=== PATIENT | female | born 1970 | race Caucasian/White ===

== ENCOUNTER 2018-02-14 13:44 | Emergency (ER) | payer MEDICAID, SELFPAY ==
[2018-02-14 13:46] VITALS: BP 152/73; PULSE 84; RESP 16; TEMP 36.7; O2SAT 94; BMI 48.9
--- NOTE | 2018-02-14 14:29 | ED.DCSUM_ITS ---
- ER Visit Summary Date of Service: 02/14/18 Chief Complaint: Dental pain History of Present Illness: The patient is a 47 F with left maxillary molar dental pain for several days. Patient believes the tooth is loose. Pain is severe. No other associated symptoms. Physical Examination: Afebrile and vital signs unremarkable. Left maxillary molar tender to palpation. No fracture or abscess noted. No swelling or trismus. No tongue elevation. No lymphadenopathy or meningeal findings. Cranial nerves grossly intact. Skin appears normal. Test Results: None indicated Emergency Department Course and Treatment: Patient will be treated with penicillin and Motrin. She does have an allergy to naproxen, but has tolerated Motrin before. She received her first dose here. Referred to dental for follow-up. Treatment Plan: As above Disposition: Discharged Impression: 1. Dental pain This note was generated with [employer] dictation software. It may contain incorrect words, spelling, and punctuation that were not noted in review of the chart prior to signing ED Disposition - Plan for ED Patient: Chief Complaint: Dental Referrals: Care Physician,No Primary [Primary Care Provider] -
--- NOTE | 2018-02-14 14:29 | ED.DEP ---
ED Disposition - Plan for ED Patient: Chief Complaint: Dental Instructions: ED Tooth Pain Prescriptions: Ibuprofen [Motrin] 800 mg PO TID PRN PRN #20 tab PRN Reason: Pain Penicillin Vk [Pen-Vee K 250MG] 500 mg PO 4X/DAY #40 tab
[2018-02-14] MEDS: Penicillin Vk 250 MG Tablet 500 MG PO (14:57)
[2018-02-14] MEDS: Ibuprofen 600 MG Tablet PO (14:57)
[2018-02-14 14:58] VITALS: RESP 16
== END 2018-02-14 15:00 | disposition home or self-care (01) ==
LOC: ED 15:08
PROVIDERS: Emergency Provider Emergency Medicine
DX: K08.89 Other specified disorders of teeth and supporting structures (principal); Z79.899 Other long term (current) drug therapy
CPT/HCPCS: 99283

== ENCOUNTER 2018-05-21 10:32 | Emergency (ER) | payer MEDICAID, SELFPAY ==
[2018-05-21 10:35] VITALS: PULSE 77; RESP 17; TEMP 36.4; O2SAT 97; BMI 47.0
[2018-05-21 10:43] VITALS: BP 202/87; PULSE 71; RESP 14; O2SAT 97
--- NOTE | 2018-05-21 11:07 | EKG12_ITS ---
Test Reason : CP Blood Pressure : / mmHG Vent. Rate : 080 BPM Atrial Rate : 080 BPM P-R Int : 138 ms QRS Dur : 092 ms QT Int : 388 ms P-R-T Axes : 016 001 037 degrees QTc Int : 447 ms Normal sinus rhythm Normal ECG Confirmed by JOSEY ALFARO MD ([id number]), multimedia editor JESSEE MANCINI ([id number]) on 05/25/2018 2:01:09 PM Referred By: EVIE Confirmed By:JOSEY ALFARO MD
[2018-05-21 11:33] VITALS: BP 161/76; PULSE 72; RESP 18; O2SAT 99
[2018-05-21 12:10] LABS: Absolute Lymphocyte Count 1.46 X10^3/ul (0.83-4.51); Absolute Neutrophil Count 4.9 X10^3/uL (2.0-7.7); Basophil# 0.01 X10^3/uL; Basophil% 0.1 % (0-1); Eosinophil# 0.09 X10^3/uL; Eosinophils% 1.3 % (0-5); Hematocrit 48.9 % (37-47); Hemoglobin 15.8 g/dl (12.0-15.0); Lymphocyte # 1.46 X10^3/ul (4.0); Lymphocyte % 21.1 % (19-41); Mean Corp Hgb Conc 32.3 g/gl (32-36); Mean Corpuscular Hgb 30.4 pg (27.0-32.0); Mean Platelet Vol. 11.6 fl (6.2-12.0); Monocyte# 0.43 X10^3/uL; Monocyte% 6.2 % (0-10); POSITIVE COUNT NO; POSITIVE DIFFERENTIAL NO; POSITIVE MORPHOLOGY NO; Platelet Count 140 K/mm3 (150-450); RBC Distribution Width CV 13.7 % (11.6-14.6); RBC Distribution Width SD 47.1 fl (35.1-43.9); White Blood Count 6.9 K/mm3 (4.4-11.0)
--- NOTE | 2018-05-21 12:56 | ED.DCSUM_ITS ---
- ER Visit Summary Date of Service: 05/21/18 Chief Complaint: Pain History of Present Illness: The patient is a 47 F who says her heart is bothering her. Symptoms started yesterday evening. Brought on by stress. She has pain in her left chest and paresthesias in her left arm. She also reports shortness of breath and nausea. Denies any history of heart disease. Does not take aspirin. Never had a stress test or heart cath. She is a smoker. Denies any history of PE or aortic disease. Physical Examination: Pressure 202/87. Vital signs otherwise unremarkable. Afebrile. Heart regular rate and rhythm. Lungs clear. Skin, calves, pulses unremarkable. Test Results: EKG showed sinus rhythm at a rate of 80. Hemoglobin 15.8. Chemistry panel, troponin, test, CTA pending. Emergency Department Course and Treatment: Patient presents with hypertension, chest pain, and left arm paresthesias. I was concerned for ACS, dissection. Less concern for PE or infectious process. I did order labs, EKG, CTA. Patient has an allergy to aspirin. I was notified by nursing that the patient was going to leave. She said she did not want to wait for labs and did not want to wait for subsequent CTA. Patient was advised to return at any time if she has new or worsening issues or she has a change of mind. Treatment Plan: As above Disposition: Left AGAINST MEDICAL ADVICE Impression: 1. Chest pain 2. Hypertension This note was generated with [employer] dictation software. It may contain incorrect words, spelling, and punctuation that were not noted in review of the chart prior to signing ED Disposition - Plan for ED Patient: Referrals: Care Physician,No Primary [Primary Care Provider] -
--- NOTE | 2018-05-21 12:56 | ED.DEP ---
ED Disposition - Plan for ED Patient: Instructions: ED Chest Pain Atypical Unkn Cause Referrals: Lupe Mooney [NON-STAFF] -
[2018-05-21 13:05] LABS: Pregnancy, Serum, hCG Quali. NEGATIVE Negative (0-9 Nonpreg)
--- NOTE | 2018-05-21 13:33 | ED.RN ---
Addendum entered by Elizabeth Olivas 05/21/18 13:34: PT LEFT AT 1230 Original Note: PT DEMANDS TO LEAVE AMA. RISKS OF LEAVING AMA DISCUSSED WITH PT AND FAMILY, BOTH VOICE UNDERSTANDING OF RISK UP TO AND INCLUDING . PT STATES SHE WILL CALL 911 OR RETURN WITH ANY WORSENING S/S. AMA PAPERS SIGNED.
[2018-05-21 13:44] LABS: Anion Gap 5 (5-15); BUN 9 mg/dL (7-18); BUN/Creat Ratio 12.4 RATIO (10-20); Calcium,Total 8.4 mg/dL (8.5-10.1); Chloride 102 mmol/L (98-107); Creatinine, Serum 0.73 mg/dL (0.55-1.02); EST Glomerular Filtration Rate 92 mL/min (>60); Est Glom Filt Rate - Afr Amer 111 mL/min (>60); Estimated Creatinine Clearance 94.64 ml/min; Glucose 93 mg/dL (74-106); Potassium 3.8 mmol/L (3.5-5.1); Sodium Level 137 mmol/L (136-145)
== END 2018-05-21 12:30 | disposition left against medical advice (07) ==
LOC: ED 11:10
PROVIDERS: Emergency Provider Emergency Medicine
DX: R07.9 Chest pain, unspecified (principal); I10 Essential (primary) hypertension; F17.200 Nicotine dependence, unspecified, uncomplicated
CPT/HCPCS: 80048; 84484; 84703; 85025; 93005; 99283; A4216

== ENCOUNTER 2019-05-30 12:50 | Emergency (ER) | payer MEDICAID, SELFPAY ==
[2019-05-30] VITALS (7 sets, daily range): BP systolic 159–191; BP diastolic 84–96; PULSE 68–84; RESP 14–18; TEMP 36.7–36.8; O2SAT 89–95; BMI 47.0
--- NOTE | 2019-05-30 13:12 | EKG12_ITS ---
Test Reason : EXTREMETY Blood Pressure : / mmHG Vent. Rate : 075 BPM Atrial Rate : 075 BPM P-R Int : 138 ms QRS Dur : 080 ms QT Int : 378 ms P-R-T Axes : 016 -02 015 degrees QTc Int : 422 ms Normal sinus rhythm Normal ECG Confirmed by JOSEY ALFARO MD ([id number]), editor trade journal JESSEE MANCINI ([id number]) on 05/31/2019 3:19:32 PM Referred By: NAVJOT/HANNAH Confirmed By:JOSEY ALFARO MD
--- NOTE | 2019-05-30 13:12 | RAD_ITS ---
STUDY: X-RAY CHEST REASON FOR EXAM: Female, 48 years old. cough TECHNIQUE: PA and lateral views of the chest. COMPARISON: None. FINDINGS: Asymmetric parenchymal opacity involves the left lower lobe. There is no demonstrated pleural abnormality. Normal size heart. Normal mediastinum and faye. Normal visualized pulmonary arteries. Normal visualized aortic arch and descending thoracic aorta. Normal visualized thoracic spine. Normal visualized ribs, clavicles, and shoulders. There is no demonstrated abnormality of the visualized soft tissue structures of the upper abdomen. RAD/Chest PA and Lateral IMPRESSION: Developing left lower lobe airspace disease could represent pneumonia. Electronically Signed: Palmer Mathis MD (Brooks) at 14:08 EDT , Service support ,
--- NOTE | 2019-05-30 13:26 | ED.VISSUMM ---
- ER Visit Summary Date of Service: 05/30/19 Chief Complaint: Left foot swelling History of Present Illness: The patient is a 48 F with no primary care physician. She reports that her left foot began swelling 3 days ago. She states that she has an aching, dull pain that is 6 out of 10 when she stands and she is pain-free at rest. She had a similar episode last year that she did not seek medical treatment for. She denies any personal history of DVT. She does have a family history of DVT. No recent travel. Patient denies any fever or chills. She reports that she has had chest pain intermittently for years. Last episode was this morning while she was at rest. Lasted a few minutes. She describes as a dull, aching pain just inferior to her left breast. Is 3 out of 10 at worst and she is pain-free currently. Nothing made this worse including exertion or deep breaths. Patient reports that she has a chronic cough that has been worse over the course the past month. It is chronically productive of white sputum. She states that this is unchanged in color or amount. However, she does feel mildly short of breath. She smokes a pack per day. Physical Examination: Vitals: Stable. Afebrile. General: Well-nourished and well-developed. Head: Normocephalic atraumatic. Neck: Supple, no lymphadenopathy. No JVD. Nontender. Cardiovascular: Regular rate and rhythm. No murmurs. Respiratory: No respiratory distress. Clear to auscultation bilaterally. Abdominal: Soft, nontender, nondistended, normal bowel sounds. No guarding, rebound, or peritoneal signs. Back: Nontender. Extremities: 2+ pitting edema right lower extremity, 3+ pitting edema left lower extremity. There is minimal erythema on the top of her left foot and anterior leg. There is no warmth or induration. She is a 2+ dorsalis pedis pulse bilaterally. Skin: Normal color, no rash. Neurologic: Alert and oriented ?3. Cranial nerves II through XII are intact. Normal strength and sensation. Psych: Normal affect. Test Results: EKG sinus at 75 no acute changes. Troponin is negative. BT [employer] is 59. test is negative. D-dimer is elevated. LFTs marked for down to 4.4. Chem-7 shows CO2 of 33 and calcium of 8.3. CBC shows platelets 144, segmented for 74, lymphocytes 15. Chest x-ray is read as the possibility of a developing left lower lobe infiltrate. CTA of the chest was obtained which shows no PE or infiltrate. Emergency Department Course and Treatment: During her stay in the emerge department patient's pulse ox decreased to 89% on room air while she was in bed. She was given an albuterol Atrovent aerosol. She was given a dose of Solu-Medrol IV. She was ambulated about the emergency department. While she is ambulating her pulse ox is 92%. Patient feels that her baseline would like to go home. Treatment Plan: Patient will be discharged with prednisone. She already has an albuterol MDI. She is given a dose of Xarelto here to get her through till tomorrow and she understands that she needs to come back and get a lower extremity Doppler to rule out a DVT. She is instructed to follow-up Dr. Keith Leyva to establish a primary care physician. Return to the emergency department for any worsening symptoms. Disposition: To home in improved and stable condition. Impression: 1. Left leg swelling. 2. COPD. This note was generated with [employer] dictation software. It may contain incorrect words, spelling, and punctuation that were not noted in review of the chart prior to signing ED Disposition - Plan for ED Patient: Disposition: Home or Assisted Living Instructions: ED Peripheral Edema, Unilateral Prescriptions: Prednisone [Deltasone] 60 mg PO DAILY #15 tab Prescription Printed Referrals: Keith Solis MD [STAFF PHYSICIAN] - 3-5 Days Additional Instructions: Return tomorrow for the ultrasound to make sure you don't have a blood clot.
[2019-05-30 13:46] LABS: Absolute Lymphocyte Count 1.28 X10^3/uL (0.83-4.51); Absolute Neutrophil Count 6.3 X10^3/uL (2.0-7.7); Basophil# 0.02 X10^3/uL; Basophil% 0.2 % (0-1); Eosinophil# 0.14 X10^3/uL; Eosinophils% 1.6 % (0-5); Hematocrit 47.2 % (37-47); Lymphocyte # 1.28 X10^3/ul (4.0); Mean Corp Hgb Conc 31.8 g/dL (32-36); Mean Corpuscular Hgb 30.2 pg (27.0-32.0); Mean Corpuscular Volume 95.2 fL (81-99); Mean Platelet Vol. 11.1 fl (6.2-12.0); Monocyte# 0.76 X10^3/uL; Monocyte% 8.9 % (0-10); NRBC Flagged by Analyzer 0 % (0-5); Neutrophil # 6.31 X10^3/uL (2.7-7.7); Neutrophil % 73.7 % (47-70); Platelet Count 144 K/mm3 (150-450); RBC Distribution Width CV 13.9 % (11.6-14.6); RBC Distribution Width SD 48.6 fl (35.1-43.9); Red Blood Count 4.96 M/mm3 (4.2-5.4); White Blood Count 8.6 K/mm3 (4.4-11.0)
[2019-05-30 13:59] LABS: Internal QC Validated? YES +Cl - CLEAR BKGD; Pregnancy, Serum, hCG Quali. NEGATIVE Negative
[2019-05-30 14:01] LABS: D-Dimer Quantitative (DVT/PE) 0.59 FEU/ug/m (0.27-0.49)
[2019-05-30 14:09] LABS: ALB/GLOB Ratio 0.8 RATIO (0.9-2.4); AST(SGOT) 17 U/L (15-37); Alanine Aminotransfer ALT/SGPT 22 U/L (13-56); Albumin, Serum 3.3 g/dL (3.2-5.0); Alkaline Phosphatase 83 U/L (45-117); Anion Gap 1 (5-15); BUN 9 mg/dL (7-18); BUN/Creat Ratio 14.1 RATIO (10-20); Calcium,Total 8.3 mg/dL (8.5-10.1); Chloride 107 mmol/L (98-107); Creatinine, Serum 0.64 mg/dL (0.55-1.02); EST Glomerular Filtration Rate 107 mL/min (>60); Est Glom Filt Rate - Afr Amer 129 mL/min (>60); Estimated Creatinine Clearance 106.81 ml/min; Globulin 4.4 g/dL (2.2-4.2); Glucose 90 mg/dL (74-106); Potassium 3.7 mmol/L (3.5-5.1); Protein, Total 7.7 g/dL (6.4-8.2); Sodium Level 141 mmol/L (136-145)
--- NOTE | 2019-05-30 14:09 | CT_ITS ---
STUDY: CTA CHEST REASON FOR EXAM: Female, 48 years old. LT FOOT SWELLING RADIATION DOSAGE (If Supplied By Facility): CTDIvol = ( 18.60 ) mGy, DLP = ( 543.42 ) mGycm TECHNIQUE: The examination was performed with the intravenous administration of 100 CC ISOVUE 370. Post-processing of the angiographic images was performed, with multiplanar reformation and 3D reconstruction. Individualized dose optimization techniques were used for this CT. COMPARISON: None. FINDINGS: There is a 1 cm low-density nodule left thyroid gland. Normal enhancement of the main pulmonary artery and right and left pulmonary arteries. There is limited enhancement of the bilateral peripheral pulmonary arteries. There is no demonstrated pulmonary embolism. Normal thoracic aorta and visualized great vessels. There is no demonstrated aortic dissection. Normal heart and pericardium. Normal mediastinum. Normal hilar regions. Normal visualized trachea and bronchi. The lungs are well expanded. Normal pulmonary parenchyma. Normal pleura. Normal chest wall structures. Normal osseous structures. There is a small, circumscribed, smooth, low attenuation left adrenal mass, consistent with an adrenal adenoma. Indeterminate adrenal lesion which does not meet imaging criteria for a lipid rich adenoma. However, in the absence of known primary malignancy or symptoms of functional adrenal mass, this likely represents a benign lesion such as a lipid poor adenoma. CT/CTA Chest W/WO Contrast IMPRESSION: No central or obvious segmental pulmonary embolus. Electronically Signed: Palmer Mathis MD (Brooks) at 14:54 EDT , Service support ,
[2019-05-30 14:20] LABS: BNP,B-Type NATRIURETIC PEPTIDE 59.2 pg/mL (0-100)
[2019-05-30] MEDS: Ipratropium/Albuterol Sulfate 3 ML AMPUL.NEB INHALATION (15:12)
[2019-05-30] MEDS: MethylPREDNISolone 125 MG/2 ML Vial IV (15:16)
[2019-05-30] MEDS: Rivaroxaban 20 MG Tablet PO (17:21)
== END 2019-05-30 17:32 | disposition home or self-care (01) ==
LOC: ED 13:15
PROVIDERS: Emergency Provider Emergency Medicine
DX: R60.0 Localized edema (principal); J44.9 Chronic obstructive pulmonary disease, unspecified; Z72.0 Tobacco use
CPT/HCPCS: 71046; 71275; 80053; 83880; 84484; 84703; 85025; 85379; 93005; 94640; 96374; 99285; Q9967; A4216

== ENCOUNTER → 2019-05-31 15:04 | Outpatient (CLI) | payer MEDICAID, SELFPAY ==
[2019-05-30 12:51] VITALS: BMI 47.0
--- NOTE | 2019-05-31 15:08 | VDLE_ITS ---
Reason For Study: Swelling RIGHT LEFT GSV is normal. GSV is normal. CFV is compressible, spontaneous, phasic, CFV is compressible, spontaneous, phasic, competent and demonstrates normal competent, and demonstrates normal augmentation. augmentation. FV is compressible, spontaneous, phasic, FV is compressible, spontaneous, phasic, competent and demonstrates normal competent and demonstrates normal augmentation. augmentation. POP V is compressible, spontaneous, phasic, POP V is compressible, spontaneous, phasic, competent and demonstrates normal competent and demonstrates normal augmentation. augmentation. T/P Trunk is compressible. T/P Trunk is compressible. PTV is compressible. PTV is compressible. RT PerV is compressible. LT PerV is compressible. Procedure Exam performed in department. A preliminary report was called and/or faxed to ED. Pt seen in ED 05/30/2019, pt has no PCP. Interpretation Summary Deep veins of the lower extremities are bilaterally patent and compressible segmentally. There is no evidence of deep vein thrombosis on either side. Valvular competence appears intact within the proximal deep venous systems bilaterally. The great saphenous veins appear bilaterally patent and compressible segmentally. Ordering Physician: José Miguel Garcia Performed By: Svetlana Duvall RVT
== END ==
PROVIDERS: Referring Provider Emergency Medicine; Visit Provider Emergency Medicine
DX: R60.0 Localized edema (principal)
CPT/HCPCS: 93970

== ENCOUNTER 2019-06-29 01:46 | Emergency (ER) | payer MEDICAID, SELFPAY ==
[2019-05-30 12:51] VITALS: BMI 47.0
[2019-06-29] VITALS (11 sets, daily range): BP systolic 154–200; BP diastolic 88–129; PULSE 75–171; RESP 15–26; TEMP 36.9; O2SAT 93–98; BMI 52.7
--- NOTE | 2019-06-29 01:53 | EKG12_ITS ---
Test Reason : PALPATIONS Blood Pressure : / mmHG Vent. Rate : 170 BPM Atrial Rate : 144 BPM P-R Int : 144 ms QRS Dur : 084 ms QT Int : 300 ms P-R-T Axes : 000 -21 020 degrees QTc Int : 504 ms Atrial fibrillation /RVR, Atrial fibrillation with RVR, occasional PVCs Nonspecific ST abnormality Abnormal ECG Confirmed by VIDYA HEREDIA, SAMANTHA ([id number]), mapping editor KAREN CHAKRABORTY ([id number]) on 06/29/2019 1:45:27 PM Referred By: MR Confirmed By:SAMANTHA DASILVA MD
--- NOTE | 2019-06-29 01:53 | RAD_ITS ---
STUDY: X-RAY CHEST REASON FOR EXAM: Female, 48 years old. PALPITATIONS TECHNIQUE: Single AP portable view of the chest. COMPARISON: 05/30/2019. FINDINGS: The lungs are mildly underexpanded. There is no demonstrated pulmonary infiltrate. There is no demonstrated pleural abnormality. Normal size heart. Normal mediastinum and faye. Normal visualized pulmonary arteries. Normal visualized aortic arch and descending thoracic aorta. Normal visualized thoracic spine. Normal visualized ribs, clavicles, and shoulders. There is no demonstrated abnormality of the visualized soft tissue structures of the upper abdomen. RAD/Chest 1 View (Portable) IMPRESSION: No evidence for acute cardiopulmonary pathology. Electronically Signed: Caden Whatley MD at 3:07 EDT , Service support ,
[2019-06-29] MEDS: Aspirin 81 MG TAB.CHEW 324 MG PO (01:59)
--- NOTE | 2019-06-29 02:05 | ED.DCSUM_ITS ---
History of Present Illness Chief Complaint: Palpitations Informant: Patient Narrative: Patient presenting for evaluation secondary to palpitations. Patient reports that she was feeling fine all day, she ate some pizza at about 1030 and then at 11:00 she had a sudden onset of an abnormal feeling in her throat, chest, and arms. It was associated with some sweating and shortness of breath and a feeling of palpitations. Patient reports that she is having exertional dyspnea now. She states that it feels like her heart is fluttering out of her chest. She is never had any prior similar episodes in the past. She denies any cardiac history. Patient does take aspirin and Suboxone. Patient also reports that she has had increased caffeine intake recently, and drinks 3 energy drinks today as she was just feeling tired. She denies any other stimulant use currently. She denies any DVT or PE risk factors. She denies any recent infections such as fever cough nausea vomiting diarrhea sick contacts body aches. Review of systems otherwise negative. Past Medical History - Allergies and Home Meds Allergies/Adverse Reactions: Allergies naproxen Allergy (Verified 06/29/19 01:53) Shortness of breath Opioids - Morphine Analogues Adverse Reaction (Verified 06/29/19 01:53) Other Primary Care Physician: Care Physician,No Primary [Primary Care Provider] - Past Medical History: - - Past history of opiate abuse Smoking Status: Current every day smoker Review of Systems All systems negative except as indicated General: Denies: Chills, Fever, Sweats Eyes: Denies: Visual changes - bilaterally, Diplopia ENT: Denies: Rhinorrhea, Sore throat Cardiovascular: Reports: Chest pain, Palpitations, Heart racing Respiratory: Reports: Dyspnea Gastrointestinal: Denies: Abdominal pain, Nausea, Vomiting, Diarrhea, Melena, Hematochezia Genitourinary: Denies: Dysuria, Hematuria, Frequency Musculoskeletal: Denies: Back pain, Extremity Pain Skin: Reports: - - Diaphoresis Neurological: Denies: Headache, Weakness, Numbness Physical Exam Vital Signs/Narrative: Vital Signs Temp Pulse Resp BP Pulse Ox 06/29/19 01:47 98.5 F 171 H 26 H 164/129 H 93 Inital Vital Signs reviewed: Yes General: Well nourished, Well developed, Obese Head: Normocephalic, Atraumatic Eyes: Perrl, EOMI ENT: Moist mucous membranes, No rhinorrhea Neck: Supple, Nontender Cardiovascular: Irregular, Tachycardia, - - 2+ radial pulses bilaterally symmetric Respiratory: No distress, CTA bilaterally, Chest nontender Abdomen: Soft, Nontender, Nondistended, Normal bowel sounds Back: Nontender, Normal Inspection Extremities: Nontender, No edema Skin: Normal color, Diaphoresis Neurological: Alert, Oriented x3, Cranial nerves II-XII grossly intact, Normal Strength, Normal Sensation Psychological: Normal affect, Normal Mood Diagnostic/Tx/Re-eval - EKG Initial EKG Interpretation: - - Atrial fibrillation with a rapid ventricular rate of 170. Nonspecific ST changes, occasional PVCs noted. A. fib is a new finding from prior EKG in May of this year. Follow-up EKG Interpretation: - - Status post cardioversion patient was noted to be in a sinus rhythm of [address] segments normal T waves normal [place] and QTc intervals. No evidence of WPW or Brugada morphology. - Medical Decision Making Patient presented with palpitations. History and physical and initial work-up showed the patient to be in atrial fibrillation with rapid ventricular response. Patient was given 3 doses of Lopressor and did have some rate control with rates improving down to the 130s but continued to be in A. fib. As her onset was known at 11 PM and is within the last 4 hours I discussed her case with cardiology, and we are in agreement that the patient is a candidate for early rhythm control with cardioversion. Patient was cardioverted as noted in the procedure note. Work-up shows mild leukocytosis of 11, chemistry and troponin and TSH were found to be negative. Patient was given dose of Lovenox at the recommendation of cardiology. Repeat evaluation of the patient at 0 320 shows her to be in a stable sinus rhythm and to have fully recovered from her procedural sedation. At this point I believe that she is safe and appropriate for discharge. I did ask cardiology if the patient needed to be sent home on any antiarrhythmics, and they stated that that would not be necessary. I do not feel that the patient requires anticoagulation as her chads-vasc score is low risk. Patient will follow-up with cardiology. I recommended that the patient no longer consume caffeine as I feel that that could have precipitated this. Patient was discharged in improved condition. Critical care time (excluding procedures): 30-74 minutes Procedures Procedure(s): Patient was informed of the risks and benefits of procedural sedation and electrical cardioversion. She voiced understanding of these and did sign written consent. Patient was placed on supplemental oxygen, suction and bag valve mask were set up. Patient was placed on the monitor. Patient was given 15 mg of etomidate. Moderate sedation was achieved. Synchronized cardioversion was then attempted. Patient was cardioverted using 100 J of energy, and this was unsuccessful. She then was cardioverted using 150 J of e nergy, and this was successful. Patient had a short apneic period with mild desaturations to the high 80s, was supported with bag valve mask. Patient had return of normal consciousness, and tolerated the procedure well ED Disposition - Plan for ED Patient: Disposition: Home or Assisted Living Instructions: ED AFIB, ED Procedural Sedation, (Adult), ED Cardioversion Electrical Referrals: Hugo Castro MD [STAFF PHYSICIAN] - 3-5 Days Additional Instructions: Decrease use of caffeine. Return for any reemergence or worsening symptoms.
[2019-06-29 02:06] LABS: Absolute Lymphocyte Count 1.66 X10^3/uL (0.83-4.51); Absolute Neutrophil Count 8.3 X10^3/uL (2.0-7.7); Basophil# 0.02 X10^3/uL; Basophil% 0.2 % (0-1); Eosinophil# 0.17 X10^3/uL; Eosinophils% 1.5 % (0-5); Hematocrit 49.4 % (37-47); Lymphocyte # 1.66 X10^3/ul (4.0); Lymphocyte % 14.9 % (19-41); Mean Corp Hgb Conc 32.4 g/dL (32-36); Mean Corpuscular Hgb 30.2 pg (27.0-32.0); Mean Corpuscular Volume 93.4 fL (81-99); Mean Platelet Vol. 11.5 fl (6.2-12.0); Monocyte# 1.02 X10^3/uL; Monocyte% 9.1 % (0-10); NRBC Flagged by Analyzer 0 % (0-5); Neutrophil # 8.25 X10^3/uL (2.7-7.7); Platelet Count 157 K/mm3 (150-450); RBC Distribution Width CV 13.3 % (11.6-14.6); RBC Distribution Width SD 45.2 fl (35.1-43.9); Red Blood Count 5.29 M/mm3 (4.2-5.4); White Blood Count 11.2 K/mm3 (4.4-11.0)
[2019-06-29] MEDS: Metoprolol Tartrate 5 MG/5 ML Vial IV ×3 (02:07→02:18)
[2019-06-29] MEDS: Enoxaparin 150 MG/ML Syringe SC (02:19)
[2019-06-29] MEDS: Etomidate 20 MG/10 ML Vial 15 MG IV (02:24)
--- NOTE | 2019-06-29 02:34 | EKG12_ITS ---
Test Reason : CARDIOVERSION Blood Pressure : / mmHG Vent. Rate : 081 BPM Atrial Rate : 081 BPM P-R Int : 150 ms QRS Dur : 092 ms QT Int : 376 ms P-R-T Axes : 044 007 033 degrees QTc Int : 436 ms Normal sinus rhythm Normal ECG Confirmed by VIDYA HEREDIA, SAMANTHA ([id number]), editor map JESSEE MANCINI ([id number]) on 06/29/2019 1:50:55 PM Referred By: MR Confirmed By:SAMANTHA DASILVA MD
[2019-06-29 02:51] LABS: Anion Gap 9 (5-15); BUN 10 mg/dL (7-18); BUN/Creat Ratio 12.5 RATIO (10-20); Calcium,Total 8.3 mg/dL (8.5-10.1); Chloride 108 mmol/L (98-107); EST Glomerular Filtration Rate 82 mL/min (>60); Est Glom Filt Rate - Afr Amer 99 mL/min (>60); Estimated Creatinine Clearance 85.45 ml/min; Glucose 156 mg/dL (74-106); Sodium Level 139 mmol/L (136-145); Thyroid Stim Hormone (TSH) 0.77 uIU/mL (0.358-3.74)
== END 2019-06-29 03:33 | disposition home or self-care (01) ==
PROVIDERS: Emergency Provider Emergency Medicine
DX: I48.91 Unspecified atrial fibrillation (principal); F17.200 Nicotine dependence, unspecified, uncomplicated; Z79.82 Long term (current) use of aspirin
CPT/HCPCS: 71045; 80048; 84443; 84484; 85025; 92960; 93005; 96372; 96374; 99285; J7030; A4216

== ENCOUNTER 2019-08-21 23:07 | Emergency (ER) | payer MEDICAID, SELFPAY ==
[2019-06-29 01:47] VITALS: BMI 52.7
[2019-08-21 23:07] VITALS: BP 180/105; PULSE 87; RESP 18; TEMP 37.1; O2SAT 93; BMI 54.3
--- NOTE | 2019-08-21 23:17 | EKG12_ITS ---
Test Reason : EDEMA Blood Pressure : / mmHG Vent. Rate : 084 BPM Atrial Rate : 084 BPM P-R Int : 134 ms QRS Dur : 094 ms QT Int : 366 ms P-R-T Axes : 054 -09 059 degrees QTc Int : 432 ms Normal sinus rhythm Normal ECG Confirmed by DOMINIC HEREDIA, JOSEY ([id number]), acquisition editor DIANE GONZALEZ ([id number]) on 08/24/2019 1:37:21 PM Referred By: JODI Confirmed By:JOSEY ALFARO MD
--- NOTE | 2019-08-21 23:18 | ED.VIS.GEN ---
History of Present Illness Chief Complaint: Edema Informant: Patient Onset: Weeks Context: Gradual Onset Timing: Continuous Current Severity: Moderate Maximum Severity: Moderate Narrative: The patient is a 48-year-old female medical history significant for smoking, chronic pain, and questionable history of atrial fibrillation with RVR presents to the emergency department bilateral lower extremity edema. She states she is been experiencing for months, but she feels it is getting worse. She states by the end of the day, her legs are very swollen and tender. She denies any chest pain. She denies orthopnea or weight gain. She denies any fevers or chills. She states that she will try to elevate her legs and it seems to make the swelling better, but then it will come back. She has not followed up with cardiology yet. She states that she does not have any means to do telehealth visits. Prior similar symptoms: Yes Recent Illness/Hospitalization: No Past Medical History - Allergies and Home Meds Allergies/Adverse Reactions: Allergies naproxen Allergy (Verified 07/08/19 09:02) Shortness of breath Opioids - Morphine Analogues Adverse Reaction (Verified 07/08/19 09:02) Other Primary Care Physician: Care Physician,No Primary [Primary Care Provider] - Prior records reviewed: Yes Past Medical History: - - A. fib Surgical History: noncontributory Smoking Status: Current every day smoker Review of Systems General: Denies: Chills, Fever, Sweats Eyes: Denies: Visual changes - bilaterally, Diplopia ENT: Denies: Rhinorrhea, Sore throat Cardiovascular: Reports: Palpitations. Denies: Chest pain Respiratory: Denies: Dyspnea, Cough, Dyspnea on exertion Gastrointestinal: Denies: Abdominal pain, Nausea, Vomiting, Diarrhea, Melena, Hematochezia Genitourinary: Denies: Dysuria, Hematuria, Frequency Musculoskeletal: Reports: Swelling. Denies: Back pain, Extremity Pain Skin: Denies: Rash, Wounds Neurological: Denies: Headache, Weakness, Numbness Physical Exam Vital Signs/Narrative: Vital Signs Temp Pulse Resp BP Pulse Ox 08/21/19 23:07 98.8 F 87 18 180/105 H 93 Inital Vital Signs reviewed: Yes General: Well nourished, Well developed, No Acute Distress Head: Normocephalic, Atraumatic Eyes: Perrl, EOMI ENT: Moist mucous membranes, No rhinorrhea Neck: Supple, Nontender Cardiovascular: Regular rate, Regular rhythm, No murmurs Respiratory: No distress, CTA bilaterally, Chest nontender Abdomen: Soft, Nontender, Nondistended, Normal bowel sounds Back: Nontender, Normal Inspection Extremities: Nontender, Edema - 1+ symmetric lower extremity edema. 2+ pulses. Skin: Normal color, No rash Neurological: Alert, Oriented x3, Cranial nerves II-XII grossly intact, Normal Strength, Normal Sensation Psychological: Normal affect, Normal Mood Diagnostic/Tx/Re-eval Chest X-Ray - ED: 2 View, Normal, Heart, Lungs, Mediastinum - Rhythm Strip Rhythm Strip: Sinus Rhythm Rate: 80 Ectopy: None - EKG Initial EKG Interpretation: Sinus Rhythm, No Acute Injury Pattern Prior: Unchanged - Medical Decision Making Patient presents with worsening bilateral lower extremity edema. It is symmetrical. There is no pain with palpation along the venous return system. This does appear to be more consistent with venous stasis and volume retention. With her history of A. fib, cardiac work-up was pursued. EKG demonstrates sinus rhythm without acute ischemia. Chest x-ray shows no significant cardiomegaly or pleural effusion. Screening labs including cardiac enzymes, renal function, liver function, and BNP were unremarkable. I did discuss options with the patient. We are going to start a low-dose diuretic because I do feel that this will help her symptoms. She will continue elevation. She will follow-up with cardiology as scheduled. Impression 1. Bilateral lower extremity edema ED Disposition - Plan for ED Patient: Instructions: ED Peripheral Edema, Bilateral Prescriptions: Furosemide [Lasix] 20 mg PO DAILY #10 tab Prescription Printed Referrals: Care Physician,No Primary [Primary Care Provider] -
--- NOTE | 2019-08-21 23:43 | RAD_ITS ---
STUDY: X-RAY CHEST REASON FOR EXAM: Female, 48 years old. EDEMA, BILATERAL LEG PAIN AND SWELLING FOR MONTHS TECHNIQUE: Frontal and lateral views of the chest. COMPARISON: 06/29/2019. CTA chest 05/30/2019. FINDINGS: The lungs are clear and expanded. There is no demonstrated pleural abnormality. Normal size heart. Normal mediastinum and faye. Normal visualized pulmonary arteries. Normal visualized aortic arch and descending thoracic aorta. There are multilevel degenerative changes of the thoracic spine. Normal visualized ribs, clavicles, and shoulders. There is no demonstrated abnormality of the visualized soft tissue structures of the upper abdomen. RAD/Chest PA and Lateral IMPRESSION: No evidence for acute cardiopulmonary pathology. Electronically Signed: Caden Whatley MD at 0:07 EDT , Service support ,
[2019-08-21 23:45] LABS: Absolute Lymphocyte Count 1.26 X10^3/uL (0.83-4.51); Absolute Neutrophil Count 5.2 X10^3/uL (2.0-7.7); Basophil# 0.01 X10^3/uL; Basophil% 0.1 % (0-1); Eosinophil# 0.23 X10^3/uL; Eosinophils% 3.1 % (0-5); Hematocrit 48.7 % (37-47); Hemoglobin 15.7 g/dL (12.0-15.0); Lymphocyte # 1.26 X10^3/ul (4.0); Lymphocyte % 17.1 % (19-41); Mean Corp Hgb Conc 32.2 g/dL (32-36); Mean Corpuscular Hgb 29.9 pg (27.0-32.0); Mean Corpuscular Volume 92.8 fL (81-99); Mean Platelet Vol. 10.8 fl (6.2-12.0); Monocyte# 0.61 X10^3/uL; Monocyte% 8.3 % (0-10); NRBC Flagged by Analyzer 0 % (0-5); Neutrophil # 5.22 X10^3/uL (2.7-7.7); Neutrophil % 71.1 % (47-70); Platelet Count 163 K/mm3 (150-450); RBC Distribution Width CV 13.4 % (11.6-14.6); RBC Distribution Width SD 46.4 fl (35.1-43.9); Red Blood Count 5.25 M/mm3 (4.2-5.4); White Blood Count 7.4 K/mm3 (4.4-11.0)
[2019-08-22 00:08] LABS: ALB/GLOB Ratio 0.7 RATIO (0.9-2.4); AST(SGOT) 20 U/L (15-37); Alanine Aminotransfer ALT/SGPT 26 U/L (13-56); Albumin, Serum 3.3 g/dL (3.2-5.0); Alkaline Phosphatase 79 U/L (45-117); Anion Gap 3 (5-15); BUN 8 mg/dL (7-18); BUN/Creat Ratio 10.2 RATIO (10-20); Calcium,Total 8.5 mg/dL (8.5-10.1); Chloride 107 mmol/L (98-107); Creatinine, Serum 0.79 mg/dL (0.55-1.02); EST Glomerular Filtration Rate 83 mL/min (>60); Est Glom Filt Rate - Afr Amer 101 mL/min (>60); Estimated Creatinine Clearance 86.53 ml/min; Globulin 4.6 g/dL (2.2-4.2); Glucose 108 mg/dL (74-106); Protein, Total 7.9 g/dL (6.4-8.2); Sodium Level 141 mmol/L (136-145)
[2019-08-22 00:09] LABS: BNP,B-Type NATRIURETIC PEPTIDE 52.7 pg/mL (0-100)
[2019-08-22 00:24] VITALS: BP 164/80; PULSE 78; RESP 18; O2SAT 96
== END 2019-08-22 00:25 | disposition home or self-care (01) ==
LOC: ED 08-22 00:07
PROVIDERS: Emergency Provider Emergency Medicine
DX: R60.0 Localized edema (principal); Z79.82 Long term (current) use of aspirin
CPT/HCPCS: 71046; 80053; 83880; 84484; 85025; 93005; 99283; A4216

== ENCOUNTER 2023-03-17 22:20 | Inpatient (IN) | payer MEDICAID, SELFPAY ==
[2023-03-17 22:21] VITALS: BP 139/72; PULSE 78; RESP 26; TEMP 37.1; O2SAT 78; O2SAT 96; BMI 52.7
--- NOTE | 2023-03-17 22:36 | EKG12_ITS ---
Test Reason : CP Blood Pressure : / mmHG Vent. Rate : 076 BPM Atrial Rate : 076 BPM P-R Int : 142 ms QRS Dur : 082 ms QT Int : 378 ms P-R-T Axes : 054 -06 007 degrees QTc Int : 425 ms Normal sinus rhythm Nonspecific ST abnormality Abnormal ECG Confirmed by DOMINIC HEREDIA, JOSEY ([id number]), rewrite editor KAREN CHAKRABORTY ([id number]) on 03/25/2023 9:26:58 AM Referred By: SULY Confirmed By:JOSEY ALFARO MD
--- NOTE | 2023-03-17 22:38 | EDS_ITS ---
HPI History of Present Illness Chief Complaint: Shortness of Breath Informant: patient Narrative Narrative: 52-year-old female presenting to the emergency room with lower extremity and abdominal swelling. Patient states over the past 2 days her legs have become s ignificantly more swollen as has the skin on her abdomen. She notes increased shortness of breath. Patient has a reported history of atrial fibrillation and takes metoprolol. She is also treated for hypertension and is on triamterene- hydrochlorothiazide. She states that she has home oxygen concentrator and wears it as needed. She states that typically when she goes to work she does not need oxygen and is not short of breath. She believes she has a portable system but has not been shown how to use it. She notes some intermittent sharp chest pains. No change in cough or sputum production. No reported fevers. She notes that she is urinating more than normal. The patient reports no new medication changes. She has had the home oxygen for about 2 weeks. She states she does not have a portable unit. She has been referred to a cylinder block mechanic by primary care. She has not seen them yet. Noted to be 78% on room air in triage. She states her legs have started to weep. [facility] Medical History Adrenal mass Atrial fibrillation with rapid ventricular response (06/29/19) Essential hypertension Heroin use disorder, moderate, in early remission Marijuana abuse Nicotine abuse Paroxysmal atrial fibrillation Paroxysmal supraventricular tachycardia Home Medications aspirin 325 mg tablet,delayed release 325 mg PO DAILY 08/21/19 [History Last Taken Unknown] furosemide 20 mg tablet 20 mg PO DAILY #10 tabs 08/22/19 [Rx Last Taken Unknown] albuterol sulfate .ROUTE 03/17/23 [History Last Taken Unknown] aspirin 81 mg tablet,delayed release (Adult Low Dose Aspirin) 81 mg PO DAILY 03/17/23 [History Last Taken Unknown] lisinopril 20 mg tablet 20 mg PO DAILY 03/17/23 [History Last Taken Unknown] metoprolol tartrate 50 mg tablet 75 mg PO BID 03/17/23 [History Last Taken Unknown] potassium 99 mg tablet 99 mg PO DAILY 03/17/23 [History Last Taken Unknown] triamterene 75 mg-hydrochlorothiazide 50 mg tablet 1 tab PO DAILY 03/17/23 [History Last Taken Unknown] umeclidinium-vilanterol inhalation 03/17/23 [History Last Taken Unknown] Allergy/AdvReac Type Severity Reaction Status Date / Time naproxen Allergy Shortness Verified 03/17/23 22:26 of breath Opioids - Morphine Analogues AdvReac Other Verified 03/17/23 22:26 Surgical History History of cardioversion (06/29/19) Social History Smoking Status: Current every day smoker tobacco type: cigarettes substance use type: opiates caffeine: Yes Type: coffee and other ROS ROS ED Constitutional Constitutional ED: Reports chills; Denies fever(s) or weight loss Eyes Eyes: Denies change in vision or diplopia ENT ENT ED: Denies ear pain, rhinorrhea or sore throat Cardiovascular Cardiovascular: Reports chest pain and other Details: Lower extremity swelling abdominal skin swelling ; Denies orthopnea, palpitations or racing heartbeat Respiratory/Chest Respiratory/Chest: Reports cough, dyspnea and dyspnea on exertion; Denies orthopnea Gastrointestinal Gastrointestinal: Denies abdominal pain, diarrhea, nausea or vomiting Genitourinary Genitourinary ED: Reports urinary frequency; Denies dysuria or hematuria Musculoskeletal Musculoskeletal: Denies arthralgias or myalgias Integumentary Denies abscess or rash Neurologic Neurologic: Denies headache(s), paresthesias or weakness Psychiatric Psychiatric: Denies anxiety, depression, suicidal ideation or suicidal thoughts Endocrine Endocrinology: Denies polydipsia, polyphagia or polyuria Allergic/Immunologic Allergic/Immunologic ED: Denies mouth swelling, tongue swelling or urticaria EXAM Physical Exam Narrative Exam Narrative: Patient to be dyspneic Const Vital Signs: 03/17/23 22:21 03/17/23 22:21 03/17/23 22:21 Temperature 98.8 F Temperature Source Temporal Pulse Rate 78 Respiratory Rate 26 H Respiratory Effort Short of Breath Labored Respiratory Depth Shallow Respiratory Pattern Tachypnea Blood Pressure 139/72 H Blood Pressure Mean 94 Pulse Ox 78 96 Oxygen Delivery Method Room Air Nasal Cannula Nasal Cannula Oxygen Flow Rate (L/min) 5 5 03/17/23 22:48 Temperature 98.8 F Temperature Source Temporal Pulse Rate 78 Respiratory Rate 26 H Respiratory Effort Respiratory Depth Respiratory Pattern Blood Pressure 139/72 H Blood Pressure Mean 94 Pulse Ox 96 Oxygen Delivery Method Nasal Cannula Oxygen Flow Rate (L/min) 5 Positive well nourished, well developed and obese General Appearance ED: well developed Nutritional Appearance: obese HEENT Reports normocephalic, head/scalp atraumatic and moist mucous membranes Eyes PERRL and EOMs intact bilaterally Neck no lymphadenopathy, supple and no JVD Resp clear to auscultation bilaterally Resp Narrative: Tachypnea Auscultation: diminished lung sounds Cardio regular rate, regular rhythm and no murmurs GI non-tender GI Narrative: The abdominal skin demonstrates edema Auscultation: normoactive bowel sounds Palpation: soft; Negative for guarding Back/Spine no CVA tenderness and normal ROM Extremity Extremity Narrative: Bilateral lower extremity edema. Chronic venous stasis changes. The legs are red but the redness improves with elevation. When I remove her socks the feet are not red. General Extremety ED: Yes edema General Extremity: edema bilateral lower extremity Neuro oriented x3 and CN's II-XII intact bilaterally Sensorium / Orientation: alert Motor Exam: strength 5/5 throughout Psych Mood & Affect: anxious; Negative for depressed or tearful Skin no rashes or lesions noted MDM MDM MDM Narrative Medical decision making narrative: My independent interpretation of the plain films of the chest x-ray is mild pulmonary edema. Patient received supplemental oxygen and on 5 L is mid 90s. White count 10.1 with hemoglobin of 13. Creatinine 1.75 which is elevated but the last level I have is 2020. Troponin is normal. BNP is 299. Glucose 112. Liver panel negative. Patient received 80 mg of Lasix IV. Patient does have home oxygen however she does not really understand how to use it and states that the possible portable system that she has never came with any paperwork or how much oxygen she is to use. It takes her a significant mount of time just to get in or out of the bed. She is noticeably dyspneic with movement. She is 78% on room air. She has evidence of anasarca which is new over the last 2 days. Patient would benefit from continued diuresis inpatient. She has no pain/pleuritic pain. I doubt pulmonary embolism. I think this is most likely heart failure/volume overload. History & Record Review Discussion w/independent historian: Patient and Friend Additional record(s) reviewed:: Prior outpatient record, Prior ED visit and Prior labs Lab Data Attestation: I reviewed the patient's lab results. Labs: Laboratory Results - last 24 hr 03/17/23 22:30 WBC 10.1 RBC 4.26 Hgb 13.0 Hct 44.0 MCV 103.3 H MCH 30.5 MCHC 29.5 L RDW Std Deviation 55.9 H RDW Coeff of Fernando 14.6 Plt Count 128 L MPV 12.2 H Immature Gran % (Auto) 0.500 Neut % (Auto) 82.2 H Lymph % (Auto) 9.2 L [place] % (Auto) 6.8 Eos % (Auto) 1.2 Baso % (Auto) 0.1 Absolute Neuts (auto) 8.3 H Absolute Lymphs (auto) 0.93 Nucleated RBC % 0 Sodium 143 Potassium 4.7 Chloride 111 H Carbon Dioxide 32.0 Anion Gap 0 L BUN 23 H Creatinine 1.75 H Estim Creat Clear Calc 38.80 Est GFR (MDRD) Af Amer 40 L Est GFR (MDRD) Non-Af 33 L BUN/Creatinine Ratio 13.1 Glucose 110 H Calcium 8.4 L Magnesium 2.1 Total Bilirubin 0.40 Direct Bilirubin 0.14 AST 14 L ALT 15 Alkaline Phosphatase 62 Troponin I High Sens 16 B-Natriuretic Peptide 299.1 H Total Protein 7.7 Albumin 3.3 Globulin 4.4 H Radiography Diagnostic Testing: Clinical Impression(s) from Imaging Studies Chest X-Ray 03/17/23 22:50 IMPRESSION: Central pulmonary vascular congestion. Electronically Signed: Hiren Barahona MD at 23:10 EST , EKG Initial EKG: Attestation: I personally reviewed and interpreted this EKG as follows: Comments: Normal sinus rhythm with ventricular rate of 76 bpm. EKG appears grossly unchanged from EKG dated 21 Aug 2019. Lower voltage is seen presume secondary to body habitus Prior EKG tracings: available for review Prior: Unchanged Differential Diagnosis Chest pain/SOB: pulmonary embolism, ACS, pneumothorax, pneumonia, aortic dissection, CHF and COPD Management Discussion w/another healthcare provider: Hospitalist Discharge Plan Dx/Rx/DC Orders Clinical Impression: Paroxysmal atrial fibrillation, Nicotine abuse, Congestive heart failure, Anasarca, Acute and chronic respiratory failure with hypoxia, COPD (chronic obstructive pulmonary disease) Disposition Disposition: Acute Care Hospital [facility]
[2023-03-17 22:48] VITALS: BP 139/72; PULSE 78; RESP 26; TEMP 37.1; O2SAT 96; BMI 52.7
[2023-03-17 22:48] LABS: Absolute Lymphocyte Count 0.93 X10^3/uL (0.83-4.51); Absolute Neutrophil Count 8.3 X10^3/uL (2.0-7.7); Basophil# 0.01 X10^3/uL; Basophil% 0.1 % (0-1); Eosinophil# 0.12 X10^3/uL; Eosinophils% 1.2 % (0-5); Lymphocyte # 0.93 X10^3/ul (0.83-4.51); Lymphocyte % 9.2 % (19-41); Mean Corp Hgb Conc 29.5 g/dL (32-36); Mean Corpuscular Hgb 30.5 pg (27.0-32.0); Mean Corpuscular Volume 103.3 fL (81-99); Mean Platelet Vol. 12.2 fl (6.2-12.0); Monocyte# 0.69 X10^3/uL; Monocyte% 6.8 % (0-10); NRBC Flagged by Analyzer 0 % (0-5); Neutrophil % 82.2 % (47-70); Platelet Count 128 K/mm3 (150-450); RBC Distribution Width CV 14.6 % (11.6-14.6); RBC Distribution Width SD 55.9 fl (35.1-43.9); Red Blood Count 4.26 M/mm3 (4.2-5.4); White Blood Count 10.1 K/mm3 (4.4-11.0)
--- NOTE | 2023-03-17 22:50 | RAD_ITS ---
EXAM: XR CHEST, 1 VIEW CLINICAL INDICATION: dysnpea TECHNIQUE: Frontal view of the chest. COMPARISON: Two-view chest 08/21/2019 FINDINGS: LUNGS AND PLEURAL SPACES: Central pulmonary vascular congestion. No pneumothorax. No effusion. HEART: Unremarkable. Cardiac silhouette not enlarged. MEDIASTINUM: Central airways and mediastinal contour are unremarkable. BONES/JOINTS: Unremarkable. No acute fracture. SOFT TISSUES: Unremarkable. RAD/Chest 1 View (Portable) IMPRESSION: Central pulmonary vascular congestion. Electronically Signed: Hiren Barahona MD at 23:10 EST ,
[2023-03-17 23:07] LABS: AST(SGOT) 14 U/L (15-37); Alanine Aminotransfer ALT/SGPT 15 U/L (13-56); Albumin, Serum 3.3 g/dL (3.2-5.0); Alkaline Phosphatase 62 U/L (45-117); Anion Gap 0 (5-15); BNP,B-Type NATRIURETIC PEPTIDE 299.1 pg/mL (0-100); BUN 23 mg/dL (7-18); BUN/Creat Ratio 13.1 RATIO (10-20); Bilirubin, Direct 0.14 mg/dL (0.00-0.30); Calcium,Total 8.4 mg/dL (8.5-10.1); Chloride 111 mmol/L (98-107); Creatinine, Serum 1.75 mg/dL (0.55-1.02); EST Glomerular Filtration Rate 33 mL/min (>60); Est Glom Filt Rate - Afr Amer 40 mL/min (>60); Globulin 4.4 g/dL (2.2-4.2); Glucose 110 mg/dL (74-106); Magnesium 2.1 mg/dL (1.6-2.6); Potassium 4.7 mmol/L (3.5-5.1); Protein, Total 7.7 g/dL (6.4-8.2); Sodium Level 143 mmol/L (136-145); Troponin-I HS 16 pg/mL (3.0-54.0)
[2023-03-17] MEDS: Furosemide 100 MG/10 ML Vial 80 MG IV (23:10)
--- NOTE | 2023-03-17 23:25 | HP.PCM.HOS_ITS ---
HPI - General General Date of Admission: 03/17/23 Date of Service: 03/17/23 Chief Complaint: Shortness of breath HPI Narrative ROXIE KAMINSKI, is a 52 F who presents with bilateral lower extremity swelling and abdominal distension since the last 2 days She has also noticed worsening shortness of breath. She is on a home oxygen concentrator and uses it as needed. At the time of her presentation she was found to have an oxygen saturation of 78% on room air. Her past medical history includes history of A- fib on metoprolol, no anticoagulation, hypertension on triamterene hydrochlorothiazide. She denies any any fever, changes in her diet recently. Smokes about 1-2 packs per day, near daily use of marijuana. No alcohol use, no other drug use. Her white count is 10.1, hemoglobin 13, platelet count 128, sodium 03/24/1940, BUN of 23, creatinine of 1.75, magnesium 2.1, bilirubin 0.4, total protein 7.7, albumin 3.3. Her EKG showed normal sinus rhythm with ventricular rate of 76 bpm. B-natriuretic peptide is 299.1, troponin I normal. Chest x-ray showed central pulmonary vascular congestion. [facility] Medical History Adrenal mass Atrial fibrillation with rapid ventricular response (06/29/19) Essential hypertension Heroin use disorder, moderate, in early remission Marijuana abuse Nicotine abuse Paroxysmal atrial fibrillation Paroxysmal supraventricular tachycardia Home Medications aspirin 325 mg tablet,delayed release 325 mg PO DAILY 08/21/19 [History Last Taken Unknown] furosemide 20 mg tablet 20 mg PO DAILY #10 tabs 08/22/19 [Rx Last Taken Unknown] albuterol sulfate .ROUTE 03/17/23 [History Last Taken Unknown] aspirin 81 mg tablet,delayed release (Adult Low Dose Aspirin) 81 mg PO DAILY 03/17/23 [History Last Taken Unknown] lisinopril 20 mg tablet 20 mg PO DAILY 03/17/23 [History Last Taken Unknown] metoprolol tartrate 50 mg tablet 75 mg PO BID 03/17/23 [History Last Taken Unknown] potassium 99 mg tablet 99 mg PO DAILY 03/17/23 [History Last Taken Unknown] triamterene 75 mg-hydrochlorothiazide 50 mg tablet 1 tab PO DAILY 03/17/23 [History Last Taken Unknown] umeclidinium-vilanterol inhalation 03/17/23 [History Last Taken Unknown] Allergy/AdvReac Type Severity Reaction Status Date / Time naproxen Allergy Shortness Verified 03/18/23 00:22 of breath Opioids - Morphine Analogues AdvReac Other Verified 03/18/23 00:22 Surgical History History of cardioversion (06/29/19) Social History Smoking Status: Current every day smoker tobacco type: cigarettes substance use type: opiates caffeine: Yes Type: coffee and other ROS Constitutional Constitutional: Denies anorexia, change in weight, chills, fatigue, fever(s), malaise, night sweats, weakness or other Cardiovascular Cardiovascular: Reports dyspnea on exertion, edema and orthopnea Respiratory/Chest Respiratory/Chest: Reports dyspnea and shortness of breath with exertion Gastrointestinal Gastrointestinal: Reports abdominal pain Genitourinary Genitourinary: Denies burning urination, difficulty urinating, dysuria, hematuria, nocturia, urinary frequency, urinary hesitancy, urinary incontinence, urinary urgency or other Musculoskeletal Musculoskeletal: Denies arthralgias, back pain, joint pain, joint stiffness, joint swelling, myalgias, neck pain or other Neurologic Neurologic: Denies abnormal gait, abnormal speech, confusion, disequilibrium, dizziness, focal weakness, headache(s), numbness, paresthesias, seizure-like activity, seizures, syncope, tingling, tremor(s) or other Vital Signs Vital Signs Vital Signs: 03/17/23 22:21 03/17/23 22:21 03/17/23 22:21 Temperature 98.8 F Temperature Source Temporal Pulse Rate 78 Respiratory Rate 26 H Respiratory Effort Short of Breath Labored Respiratory Depth Shallow Respiratory Pattern Tachypnea Blood Pressure 139/72 H Blood Pressure Mean 94 Pulse Ox 78 96 Oxygen Delivery Method Room Air Nasal Cannula Nasal Cannula Oxygen Flow Rate (L/min) 5 5 03/17/23 22:48 Temperature 98.8 F Temperature Source Temporal Pulse Rate 78 Respiratory Rate 26 H Respiratory Effort Respiratory Depth Respiratory Pattern Blood Pressure 139/72 H Blood Pressure Mean 94 Pulse Ox 96 Oxygen Delivery Method Nasal Cannula Oxygen Flow Rate (L/min) 5 Weight Weight: 346 lb 12.594 oz Body Mass Index (BMI) 52.7 Physical Exam Const alert, oriented x3 and no apparent distress HEENT normocephalic Resp normal respiratory effort Resp Narrative: No added breath sounds heard GI normal to inspection, nondistended, normoactive bowel sounds Extremity Extremity Narrative: Bilateral swelling, redness and warmth present over both the legs. Neuro oriented x3 Results Medical Records Data Attestation: I reviewed the patient's medical records Lab / Micro Data Attestation: I reviewed the patient's lab results. Lab results narrative: No leukocytosis, mild thrombocytopenia, elevated bun, creatinine, inverted A/G ratio, random glucose 110. 03/17/23 22:30 03/17/23 22:30 Labs: Laboratory Results - last 24 hr 03/17/23 22:30: WBC 10.1, RBC 4.26, Hgb 13.0, Hct 44.0, MCV 103.3 H, MCH 30.5, MCHC 29.5 L, RDW Std Deviation 55.9 H, RDW Coeff of Fernando 14.6, Plt Count 128 L, MPV 12.2 H, Immature Gran % (Auto) 0.500, Neut % (Auto) 82.2 H, Lymph % (Auto) 9.2 L, Wirt % (Auto) 6.8, Eos % (Auto) 1.2, Baso % (Auto) 0.1, Absolute Neuts (auto) 8.3 H, Absolute Lymphs (auto) 0.93, Nucleated RBC % 0, Sodium 143, Potassium 4.7, Chloride 111 H, Carbon Dioxide 32.0, Anion Gap 0 L, BUN 23 H, Creatinine 1.75 H, Estim Creat Clear Calc 38.80, Est GFR (MDRD) Af Amer 40 L, Est GFR (MDRD) Non-Af 33 L, BUN/Creatinine Ratio 13.1, Glucose 110 H, Calcium 8.4 L, Magnesium 2.1, Total Bilirubin 0.40, Direct Bilirubin 0.14, AST 14 L, ALT 15, Alkaline Phosphatase 62, Troponin I High Sens 16, B-Natriuretic Peptide 299.1 H, Total Protein 7.7, Albumin 3.3, Globulin 4.4 H Imagaing Radiology Impression Chest X-Ray 03/17/23 22:50 IMPRESSION: Central pulmonary vascular congestion. Electronically Signed: Hiren Barahona MD at 23:10 EST , Assessment & Plan Assessment/Plan (1) Acute and chronic respiratory failure with hypoxia: PLAN: Plan Ms Kaminski, 52-year-old female with history of morbid obesity, chronic smoking, A- fib, hypertension presents to the ED with worsening pedal edema and abdominal distention over the last 2 days with shortness of breath. On examination she has features of bilateral lower limb cellulitis and hypoxia. 1. Acute on chronic respiratory failure: In the setting of bilateral worsening of pedal edema, abdominal distention there are concerns for acute decompensated heart failure versus cor pulmonale secondary to COPD versus KELSEA. Her CO2 was 32 on BMP, and there are no features of COPD exacerbation at present. -Echocardiogram tomorrow, based on the findings cardiology consult -Repeat oxygen saturation evaluation, she received Lasix 80 mg in the ED. Will give her IV Lasix after assessment tomorrow -Continue home blood pressure medications -COVID swab, flu test 2. Acute lower limb cellulitis: -Will start her on cefazolin IV for further management. Based on the improvement can switch to oral Augmentin tomorrow 3. MEGHAN on CKD: Reason for her elevated creatinine levels is not known, could be a component of cardiorenal syndrome versus dehydration. Will check repeat labs tomorrow if there is an improvement in creatinine we will continue diuretics. 4. Hypertension: Continue home medications 5. A-fib: Normal sinus rhythm at this time, continue metoprolol 6. Morbid obesity, suspected obstructive sleep apnea: Follow-up with pulmonary medicine as an outpatient as previously planned 7. Reversed AG ratio, low anion gap: This could be due to the acute illness, if there is worsening of the gap would evaluate for SPEP and UPEP for multiple myeloma 8. Mild thrombocytopenia: Continue to monitor for now, no concerns of bleeding, evaluate for steatosis/NAFLD as an outpatient. Charges/Coding Visit Charges Inpatient E&M: 27442 Init Hosp L2
--- NOTE | 2023-03-17 23:58 | ECHOCS_ITS ---
Reason For Study: CHF Procedure This was a 2D Doppler, Color Flow transthoracic echocardiogram. The study was technically difficult. The study was technically limited. D/T obesity. Contrast injection was performed. Left Ventricle Grossly normal size and function. The estimated ejection fraction is 55 %. Stage 2 diastolic dysfunction. Right Ventricle Normal RV size. Normal systolic function. Atria There is mild biatrial dilatation. Mitral Valve There is Mild focal posterior mitral annular calcification. Trivial mitral valve insufficiency. Tricuspid Valve Not well visualized. Mild to moderate (1-2+) tricuspid valve insufficiency. Right ventricular systolic pressure estimated to be 59 mmHg. Aortic Valve The aortic valve is not well visualized in the short axis view. Pulmonic Valve The pulmonic valve is not well visualized. Great Vessels Normal aortic root. Pericardium/Pleural No pericardial effusion. Medication Diluted definity 2.5ml given slow IV push to enhance endocardial definition. MMode/2D Measurements & Calculations RVDd: 4.0 cm Ao root diam: 3.3 cm LAV(MOD-bp): 85.9 ml LAV(MOD-bp) Indexed: 33.3 ml/m2 LAV(MOD-sp2): 86.9 ml LAV(MOD-sp4): 86.1 ml SV(MOD-sp4): 81.5 ml SV(sp4-el): 82.9 ml LVAd ap4: 32.7 cm2 LVLd ap4: 8.1 cm EDV(MOD-sp4): 111.2 ml EDV(sp4-el): 111.7 ml LVAs ap4: 15.4 cm2 LVLs ap4: 7.0 cm ESV(MOD-sp4): 29.7 ml ESV(sp4-el): 28.8 ml EF(MOD-sp4): 73.3 % EF(sp4-el): 74.2 % LA dimension(2D): 5.0 cm LA A4 area: 23.7 cm2 RA A4 area: 22.3 cm2 TAPSE: 2.7 cm Time Measurements MV dec time: 0.18 sec Doppler Measurements & Calculations MV E max raul: 123.9 cm/sec Lat Peak E' Raul: 14.8 cm/sec Med Peak E' Raul: 7.0 cm/sec MV A max raul: 66.5 cm/sec E/E' lat: 8.4 E/E' med: 17.7 MV E/A: 1.9 MV V2 max: 120.5 cm/sec MV P1/2t max raul: 114.8 cm/sec Ao V2 max: 169.9 cm/sec MV max P.8 mmHg MV P1/2t: 52.6 msec Ao max P.6 mmHg MV V2 mean: 62.6 cm/sec MV dec slope: 639.6 cm/sec2 Ao V2 mean: 109.7 cm/sec MV mean P.9 mmHg MVA(P1/2t): 4.2 cm2 Ao mean P.4 mmHg MV V2 VTI: 34.8 cm Ao V2 VTI: 35.0 cm AV (velocity ratio): 0.84 LV V1 max: 132.2 cm/sec PA V2 max: 93.8 cm/sec TR max raul: 332.2 cm/sec LV V1 max P.0 mmHg PA V2 mean: 67.7 cm/sec TR max P.2 mmHg LV V1 mean P.0 mmHg LV V1 mean: 80.5 cm/sec LV V1 VTI: 29.3 cm ECHO/Echo Complete W/ Contrast Interpretation Summary The estimated ejection fraction is 55 %. Stage 2 diastolic dysfunction. There is mild biatrial dilatation. There is Mild focal posterior mitral annular calcification. Mild to moderate (1-2+) tricuspid valve insufficiency. No previous echo for comparison. The study was technically difficult. Contrast injection was performed. Ordering Physician: Aggie Mullins Referring Physician: Imtiaz Marie Performed By: Rody Larios RDCS, RVT
[2023-03-18] VITALS (9 sets, daily range): BP systolic 104–130; BP diastolic 50–91; PULSE 61–77; RESP 18–20; TEMP 36.6–36.9; O2SAT 94–98; BMI 53.5
[2023-03-18] MEDS: Cefazolin 1 GM/50 ML BAG IV ×4 (00:36→21:14)
[2023-03-18] MEDS: 0.9% Saline Lock 10 ML Syringe IV ×4 (00:37→17:44)
[2023-03-18 06:31] LABS: Absolute Lymphocyte Count 0.96 X10^3/uL (0.83-4.51); Absolute Neutrophil Count 7.1 X10^3/uL (2.0-7.7); Basophil# 0.02 X10^3/uL; Basophil% 0.2 % (0-1); Eosinophil# 0.16 X10^3/uL; Eosinophils% 1.8 % (0-5); Hematocrit 44.4 % (37-47); Hemoglobin 12.8 g/dL (12.0-15.0); Lymphocyte # 0.96 X10^3/ul (0.83-4.51); Lymphocyte % 10.7 % (19-41); Mean Corp Hgb Conc 28.8 g/dL (32-36); Mean Platelet Vol. 11.9 fl (6.2-12.0); Monocyte# 0.73 X10^3/uL; Monocyte% 8.1 % (0-10); NRBC Flagged by Analyzer 0 % (0-5); Neutrophil # 7.05 X10^3/uL (2.7-7.7); Neutrophil % 78.6 % (47-70); Platelet Count 112 K/mm3 (150-450); RBC Distribution Width CV 14.6 % (11.6-14.6); RBC Distribution Width SD 56.1 fl (35.1-43.9); Red Blood Count 4.27 M/mm3 (4.2-5.4)
[2023-03-18 07:06] LABS: ALB/GLOB Ratio 0.7 RATIO (0.9-2.4); AST(SGOT) 16 U/L (15-37); Alanine Aminotransfer ALT/SGPT 15 U/L (13-56); Albumin, Serum 3.1 g/dL (3.2-5.0); Alkaline Phosphatase 57 U/L (45-117); Anion Gap 1 (5-15); BUN 22 mg/dL (7-18); BUN/Creat Ratio 13.3 RATIO (10-20); Calcium,Total 8.5 mg/dL (8.5-10.1); Chloride 110 mmol/L (98-107); Creatinine, Serum 1.66 mg/dL (0.55-1.02); EST Glomerular Filtration Rate 35 mL/min (>60); Est Glom Filt Rate - Afr Amer 42 mL/min (>60); Estimated Creatinine Clearance 39.43 ml/min; Globulin 4.4 g/dL (2.2-4.2); Glucose 106 mg/dL (74-106); Phosphorus 4.3 mg/dL (2.5-4.9); Potassium 4.5 mmol/L (3.5-5.1); Protein, Total 7.5 g/dL (6.4-8.2); Sodium Level 142 mmol/L (136-145); Thyroid Stim Hormone (TSH) 0.96 uIU/mL (0.358-3.74)
[2023-03-18] MEDS: Metoprolol Tartrate 25 MG Tablet 75 MG PO ×2 (09:42→21:17)
[2023-03-18] MEDS: Aspirin E.C. 81 MG Tablet PO (09:42)
[2023-03-18] MEDS: Lisinopril 20 MG Tablet PO (09:42)
--- NOTE | 2023-03-18 10:52 | PCM.PROGNOTE ---
Subjective Subjective Patient seen and examined. She had no active complaints. She said her breathing was better. She did admit to bilateral lower extremity swelling, worse on the left than the right. Review of systems is otherwise negative. She says she wants to go home today because she has a bird to look after. Objective Data Objective Data Vital Signs: Vital Signs Temp Pulse Resp BP Pulse Ox O2 Del Method O2 Flow Rate 98.5 F 77 20 H 106/56 L 94 Nasal Cannula 5 03/18/23 05:35 03/18/23 09:42 03/18/23 05:35 03/18/23 05:35 03/18/23 07:22 03/18/23 07:51 03/18/23 07:51 Oxygen Flow Rate (L/min) 5 Oxygen Delivery Method Nasal Cannula Weight: 341 lb 14.991 oz Body Mass Index (BMI) 53.5 Intake & Output: Intake and Output for Last 24 Hours 03/16/23 03/17/23 03/18/23 23:59 23:59 23:59 Intake Total 100 / 100 Balance 100 / 100 Lab / Micro Data 03/18/23 06:05 03/18/23 06:05 Labs: Laboratory Results - last 24 hr 03/17/23 22:30: WBC 10.1, RBC 4.26, Hgb 13.0, Hct 44.0, MCV 103.3 H, MCH 30.5, MCHC 29.5 L, RDW Std Deviation 55.9 H, RDW Coeff of Fernando 14.6, Plt Count 128 L, MPV 12.2 H, Immature Gran % (Auto) 0.500, Neut % (Auto) 82.2 H, Lymph % (Auto) 9.2 L, [place] % (Auto) 6.8, Eos % (Auto) 1.2, Baso % (Auto) 0.1, Absolute Neuts (auto) 8.3 H, Absolute Lymphs (auto) 0.93, Nucleated RBC % 0, Sodium 143, Potassium 4.7, Chloride 111 H, Carbon Dioxide 32.0, Anion Gap 0 L, BUN 23 H, Creatinine 1.75 H, Estim Creat Clear Calc 38.80, Est GFR (MDRD) Af Amer 40 L, Est GFR (MDRD) Non-Af 33 L, BUN/Creatinine Ratio 13.1, Glucose 110 H, Calcium 8.4 L, Magnesium 2.1, Total Bilirubin 0.40, Direct Bilirubin 0.14, AST 14 L, ALT 15, Alkaline Phosphatase 62, Troponin I High Sens 16, B-Natriuretic Peptide 299.1 H, Total Protein 7.7, Albumin 3.3, Globulin 4.4 H 03/18/23 06:05: WBC 9.0, RBC 4.27, Hgb 12.8, Hct 44.4, MCV 104.0 H, MCH 30.0, MCHC 28.8 L, RDW Std Deviation 56.1 H, RDW Coeff of Fernando 14.6, Plt Count 112 L, MPV 11.9, Immature Gran % (Auto) 0.600, Neut % (Auto) 78.6 H, Lymph % (Auto) 10.7 L, [place] % (Auto) 8.1, Eos % (Auto) 1.8, Baso % (Auto) 0.2, Absolute Neuts (auto) 7.1, Absolute Lymphs (auto) 0.96, Nucleated RBC % 0, Sodium 142, Potassium 4.5, Chloride 110 H, Carbon Dioxide 31.0, Anion Gap 1 L, BUN 22 H, Creatinine 1.66 H, Estim Creat Clear Calc 39.43, Est GFR (MDRD) Af Amer 42 L, Est GFR (MDRD) Non-Af 35 L, BUN/Creatinine Ratio 13.3, Glucose 106, Calcium 8.5, Phosphorus 4.3, Magnesium 2.0, Total Bilirubin 0.40, AST 16, ALT 15, Alkaline Phosphatase 57, Total Protein 7.5, Albumin 3.1 L, Globulin 4.4 H, Albumin/Globulin Ratio 0.7 L, TSH 0.96 Radiography Diagnostic Testing: Radiology Impression Chest X-Ray 03/17/23 22:50 IMPRESSION: Central pulmonary vascular congestion. Electronically Signed: Hiren Barahona MD at 23:10 EST , Physical Exam Const alert, oriented x3 and no apparent distress Constitutional Narrative: obese General Appearance: cooperative HEENT normocephalic, moist oral mucous membranes and oropharynx normal Eyes PERRL and EOMs intact bilaterally Neck no lymphadenopathy and supple Lymph Lymphatic: no lymphadenopathy noted and no lymphedema noted Resp Resp Narrative: diminished breath sounds bibasally, no wheezes or crackles. on 6L of oxygen. Cardio regular rate, regular rhythm, S1 normal heart sound, S2 normal heart sound and no murmurs Peripheral Pulses: pulses 2+ throughout GI normal to inspection, nondistended, normoactive bowel sounds, soft to palpation and non-tender Extremity normal capillary refill, no clubbing, cyanosis or edema and no calf tenderness General Extremity: no tenderness to palpation of joints or extremities Skin General Skin Exam: no breakdown and turgor normal Neuro CN's II-XII intact bilaterally, no focal motor deficits, no sensory deficits noted and deep tendon reflexes 2+ bilaterally Motor Exam: strength 5/5 throughout and general weakness Psych thought process normal and cooperative Appearance: appropriate Assessment & Plan Assessment/Plan (1) Acute and chronic respiratory failure with hypoxia: (2) Congestive heart failure: (3) COPD (chronic obstructive pulmonary disease): PLAN: Plan #Acute on chronic HFpEF on 6L of oxygen. She apparently wears 4 to 5 L of oxygen at home. Currently being diuresed with IV Lasix. 2D echo ordered Monitor intake and output. Fluid restriction to 1500 cc daily. #Bilateral lower extremity edema She does have some mild redness. She is on IV cefazolin for presumed lower extremity cellulitis. I am however not very convinced about cellulitis and will get a duplex of the lower extremities to make sure she does not have any DVT. #MEGHAN: Baseline creatinine is around 0.7. Creatinine was 1.75 on admission and has trended down to 1.66. Will monitor. #Hypertension: On metoprolol #A-fib: Rate controlled. On metoprolol #Super morbid obesity: BMI is 53.6. Complicates acute care, expected recovery and prognosis. DVT prophylaxis: Lovenox Charges/Coding Visit Charges Inpatient E&M: 39997 Subs Hosp L2
--- NOTE | 2023-03-18 11:10 | VDLE_ITS ---
Reason For Study: swelling RIGHT LEFT GSV is normal. GSV is normal. CFV is compressible, spontaneous, phasic, CFV is compressible, spontaneous, phasic, competent and demonstrates normal competent, and demonstrates normal augmentation. augmentation. FV is compressible, spontaneous, phasic, FV is compressible, spontaneous, phasic, competent and demonstrates normal competent and demonstrates normal augmentation. augmentation. POP V is compressible, spontaneous, phasic, POP V is compressible, spontaneous, phasic, competent and demonstrates normal competent and demonstrates normal augmentation. augmentation. T/P Trunk is compressible. T/P Trunk is compressible. PTV is compressible. PTV is compressible. RT PerV is compressible. LT PerV is compressible. Procedure This is a venous duplex using B-mode, color flow and spectral Doppler. Exam performed portable in patient room. The exam was diagnostic. A preliminary report was called and/or faxed to the pt's RN. VL/Venous Duplex US - Nilson Extrem Interpretation Summary Deep veins of the bilateral lower extremities are patent and compressible segme ntally. There is no evidence of bilateral lower extremity deep vein thrombosis. The bilateral great saphenous veins appear patent and compressible segmentally. Ordering Physician: Rashida Dixon Performed By: Demian Parmar, RVT
[2023-03-18] MEDS: Furosemide 40 MG/4 ML Vial IV ×2 (11:55→17:44)
--- NOTE | 2023-03-18 15:54 | CASEMGMT ---
Social Work As per admitting bulk gas specialist, pt does not have LW/POA and declined further information. SYLVIA Agrawal
--- NOTE | 2023-03-18 16:40 | CASEMGMT ---
RN?CM?ASSOCIATE QUALITY ENGINEER?CM?to room to meet with patient for initial transition planning/care coordination?assessment.?RN?CM?introduced self and role at [facility].? Pt voices understanding and consents to?assessment?at this time.? Pt resting in bed in no distress at this time.? Pt is A/O at this time and answers all questions appropriately.?? Care providers, pharmacy, and demographics verified/updated at this time. PCP: Dr Imtiaz Marie Specialists: Pt has an upcoming appt w/Dr Castro (1st appt) Preferred Pharmacy: [facility] Retail Insurance: [employer] Prescription Benefit:?Yes Living Will/HPOA:?Pt does not currently have LW/HCPOA and declines info at this time.? Pt made aware that she can contact as an out-pt and make appt in the future if she decides she would like to talk with someone about this or would like to utilize [facility] social work for advanced directive completion.?dvanced directives. Patient expresses understanding. LNOK: Sister, Trevin Jackson. Brother, Jamie Kaminski. Friend, Breanne. Living Arrangements: Lives alone in mobile home w/ramp entrance. Pt states she is independent w/ADL's, IADL's, gets her own groceries, and manages her own medications. She states she works @ [employer] part-time. Transportation:?Pt states drives self and states no transportation concerns at this time.? Friend, Breanne, will take her home @ discharge. DME: ?States has the following DME:?Pt states she wears home O2 that was just recently set up by Dr Marie's office. She does not know how many L/M she is supposed to wear and she does not know what DME co provides the oxygen. She also states she does not have a portable O2 tank to go home on and that Breanne is not able to get into her home to bring the tank to the hospital for her to go home on. FREDY CM to f/u with Dr Marie's office tomorrow to find out what DME co provides home o2 for pt and to make arrangements to have portable O2 tank delivered to [facility] for pt to go home on. Pt states she does not have a pulse ox and cannot afford to buy one, stating she is on a limited income. She was made aware one can be provided to her @ discharge. Pt states no need for further DME at this time.? Illicit Drug use: Pt has hx of opiate/heroin abuse. She states she has been clean for 10 yrs. She reports to using marijuana occasionally, about once every 2 weeks. HHC/SNF: No hx of either. Pt denies need for HHC. Pt wishes to return home and states has no concerns with going home at time of discharge.? CM?to follow for home oxygen needs and any further discharge planning/needs.? Pt voices no further concerns/needs at this time.? Advised pt to ask for?CM?if any further questions/concerns/needs arise.? Voices understanding. PLAN:??Home. DME co that provides pt's home O2 to deliver portable O2 tank to [facility] prior to discharge. Follow for any increase in home O2 @ discharge Pt to be provided w/pulse ox @ d/c. Isabel BSN?RN?CM
[2023-03-18] MEDS: Acetaminophen 500 MG Tablet 1000 MG PO (21:14)
[2023-03-19 04:08] VITALS: BMI 53.4
[2023-03-19 05:50] VITALS: BP 93/59; PULSE 66; RESP 18; TEMP 36.3; O2SAT 98
[2023-03-19] MEDS: Cefazolin 1 GM/50 ML BAG IV (05:55)
[2023-03-19] MEDS: 0.9% Saline Lock 10 ML Syringe IV (05:56)
[2023-03-19] MEDS: Acetaminophen 500 MG Tablet 1000 MG PO (05:56)
[2023-03-19 05:58] LABS: Absolute Lymphocyte Count 1.06 X10^3/uL (0.83-4.51); Absolute Neutrophil Count 6.7 X10^3/uL (2.0-7.7); Basophil# 0.02 X10^3/uL; Basophil% 0.2 % (0-1); Eosinophil# 0.08 X10^3/uL; Eosinophils% 0.9 % (0-5); Hematocrit 46.8 % (37-47); Hemoglobin 13.5 g/dL (12.0-15.0); Lymphocyte # 1.06 X10^3/ul (0.83-4.51); Lymphocyte % 12.2 % (19-41); Mean Corp Hgb Conc 28.8 g/dL (32-36); Mean Corpuscular Hgb 30.3 pg (27.0-32.0); Mean Corpuscular Volume 105.2 fL (81-99); Mean Platelet Vol. 12.1 fl (6.2-12.0); Monocyte# 0.76 X10^3/uL; Monocyte% 8.7 % (0-10); NRBC Flagged by Analyzer 0 % (0-5); Neutrophil # 6.73 X10^3/uL (2.7-7.7); Neutrophil % 77.2 % (47-70); Platelet Count 130 K/mm3 (150-450); RBC Distribution Width CV 14.3 % (11.6-14.6); RBC Distribution Width SD 56.1 fl (35.1-43.9); Red Blood Count 4.45 M/mm3 (4.2-5.4); White Blood Count 8.7 K/mm3 (4.4-11.0)
[2023-03-19 06:20] LABS: Anion Gap 1 (5-15); BUN 22 mg/dL (7-18); BUN/Creat Ratio 12.5 RATIO (10-20); Chloride 109 mmol/L (98-107); Creatinine, Serum 1.76 mg/dL (0.55-1.02); EST Glomerular Filtration Rate 32 mL/min (>60); Est Glom Filt Rate - Afr Amer 39 mL/min (>60); Estimated Creatinine Clearance 37.19 ml/min; Glucose 103 mg/dL (74-106); Potassium 5.2 mmol/L (3.5-5.1); Sodium Level 143 mmol/L (136-145)
[2023-03-19 08:40] VITALS: BP 92/57; PULSE 61; RESP 18; TEMP 36.6; O2SAT 96
[2023-03-19 08:46] VITALS: O2SAT 91; O2SAT 93
--- NOTE | 2023-03-19 08:54 | CASEMGMT ---
Addendum entered by Abelardo Ruggiero 03/19/23 14:53: O2 script for O2 @ 4 l/m @ rest and 5 l/m w/exertion sent to [facility] via [employer]. Portable O2 tank has been delivered to pt's room. Pt states [facility] rep did go over use of the tank w/her and she asks for this to be reinforced/gone over again. RNBonnie, made aware and states will do this. Addendum entered by Abelardo Ruggiero 03/19/23 12:18: Home O2 testing has been completed. Pt now qualifies for O2 @ 4 l/m @ rest and 5 l/m w/exertion. Will obtain new script from Dr Dixon and send to [facility] once available. FREDY BOONE to room. Pt sitting up in chair. Friend, Breanne, in room visiting. Pt aware she is now needing 4 l/m @ rest and 5 l/m w/exertion. Pt states she is not sure how to use her O2 concentrator @ home. She was made aware when [facility] delivers the portable tank to her room today to ask the passenger service representative to show her how to use it, director traffic and planning can show her prior to discharge. Breanne also states she can assist her when she gets home and w/making sure the liter flow is set to where it needs to be. FREDY BOONE [facility] w/her and provide education. Initially pt was reluctant, but then she states she would allow this. Call to Willie @ [facility] and he was made aware of above. He states he will reach out to [employer], who services pt's area to let them know and someone from [facility] will be contacting pt. He also states FREDY BOONE can provide pt w/his contact # so pt can call him, if needed. Pt made aware of same and Willie's # from [facility] added on pt's discharge plan that will be provided to her @ discharge. Discussed CCN w/pt. Initially she was reluctant to referral, stating she does not like anyone coming into her home, but upon further discussion and w/Breanne's encouragement, pt was agreeable to referral. Order placed. Call placed to Keven @ [facility] and she was made aware pt is discharging home today. She states d/t several other pending referrals it may be a few weeks before they can f/u with pt. Pt and friend, Breanne, made aware. Pt and Breanne told this RN CM that pt's living condition Is not the best circumstances . They state pt does not have water or heat and Breanne states, She needs a place to feel safe . Pt is agreeable to talking w/SW for resources. Pt also voices to this RN CM that she needs to discharge home today, stating she needs to go home to feed her bird and she does not have anyone that can get into her home to feed it for her. She then stated, I know I ll be coming back to the hospital eventually. I just need a couple of days to take care of things . After FREDY BOONE left the room, Breanne approached this RN CM, stating that pt does not usually allow anyone in her home d/t she is concerned it will be condemned and then she will not have a place to live. Breanne states pt has been using space heaters for heat. She reports pt rents the lot but owns the mobile home that she lives in. KYRA Kovacs, made aware of above. Bonnie DANIEL, has been provided a pulse ox to give to pt and will educate her on use. Isabel IVERSON RN, CM Original Note: FREDY BOONE NOTE: FREDY BOONE spoke w/Monie @ Dr Marie's office who states pt's current O2 orders are 2 l/m via N/C continuously and this was set up through [facility]. Call placed to Willie @ [employer] and he was made aware pt will need portable O2 tank delivered to [facility] this morning for pt to go home on. Bonnie DANIEL, made aware pt's current O2 orders are 2 l/m and she is aware to complete home O2 testing on this liter flow. Isabel IVERSON RN, CM
[2023-03-19] MEDS: Aspirin E.C. 81 MG Tablet PO (09:15)
[2023-03-19 11:15] VITALS: O2SAT 86; O2SAT 88; O2SAT 92; O2SAT 93; O2SAT 94
--- NOTE | 2023-03-19 13:55 | DCINST_ITS ---
Discharge Instructions Diet Discharge Diet: Low fat / Low cholesterol Activity Discharge Activity: Return to Normal Activity Weight Bearing Status: Weight bearing as tolerated Dressing / Incision Call your doctor if you observe: Fever of 101 or Higher, Shortness of breath, Dizziness, Swelling in the ankles and Increased palpitations (irregular heartbeat) Follow Up Care Test Results: Test results from this visit will be discussed in further detail at your follow- up appointment, if applicable. Discharge Plan Admission Admit Date/Time: 03/17/23 23:26 Primary Reason for Your Visit: acute on chronic HFpEF Attending Provider: Rashida Dixon Primary Care Provider: Imtiaz Marie Consulting Providers: Aggie Mullins Instructions Patient Instructions: Coping with Heart Failure Additional Instructions / Restrictions: use oxygen 4-5L for shortness of breath as needed Discharge Orders/Prescriptions Prescriptions: New furosemide 40 mg tablet 40 mg PO DAILY Qty: 30 2RF metoprolol tartrate 25 mg tablet 25 mg PO BID Qty: 30 2RF Continued aspirin 325 MG tablet,delayed release (DR/EC) 325 mg PO DAILY Hold Instructions: MD Ordered metoprolol tartrate 50 mg tablet 75 mg PO BID Patient Comments: take 1 AND 1/2 tablet by mouth twice a day aspirin [Adult Low Dose Aspirin] 81 mg tablet,delayed release (DR/EC) 81 mg PO DAILY lisinopril 20 mg tablet 20 mg PO DAILY Patient Comments: take 1 tablet by mouth once daily potassium 99 mg tablet 99 mg PO DAILY umeclidinium-vilanterol [Anoro Ellipta] inhalation albuterol sulfate [Ventolin HFA] .ROUTE Discontinued furosemide 20 MG tablet 20 mg PO DAILY Qty: 10 0RF triamterene-hydrochlorothiazid 75-50 mg tablet 1 tab PO DAILY Patient Comments: take 1 tablet by mouth once daily Referrals / Follow Up: Imtiaz Marie MD [Primary Care Provider] - Care Physician,No Primary [Non-Staff] - Disposition Disposition (needs filled in before D/C Order can be placed): Home, Self Care
--- NOTE | 2023-03-19 13:58 | DS.PCM_ITS ---
Providers Date of Admission: 03/17/23 Date of Discharge: 03/19/23 Primary Care Physician: Dr. Imtiaz Marie MD Reason For Visit: ADHF Diagnosis Discharge Diagnosis (1) Acute and chronic respiratory failure with hypoxia: Status: Chronic Code(s): J96.21 - Acute and chronic respiratory failure with hypoxia (2) Congestive heart failure: Status: Acute Code(s): I50.9 - Heart failure, unspecified (3) COPD (chronic obstructive pulmonary disease): Status: Chronic Code(s): J44.9 - Chronic obstructive pulmonary disease, unspecified Plan #Acute on chronic HFpEF * on 6L of oxygen. She apparently wears 4 to 5 L of oxygen at home. * Currently being diuresed with IV Lasix. 2D echo ordered * Monitor intake and output. Fluid restriction to 1500 cc daily. * #Bilateral lower extremity edema * She does have some mild redness. She is on IV cefazolin for presumed lower extremity cellulitis. I am however not very convinced about cellulitis and will get a duplex of the lower extremities to make sure she does not have any DVT. * #MEGHAN: Baseline creatinine is around 0.7. Creatinine was 1.75 on admission and has trended down to 1.66. Will monitor. #Hypertension: On metoprolol #A-fib: Rate controlled. On metoprolol #Super morbid obesity: BMI is 53.6. Complicates acute care, expected recovery and prognosis. DVT prophylaxis: Lovenox Medications at Discharge Home Medications aspirin 325 mg tablet,delayed release 325 mg PO DAILY 08/21/19 albuterol sulfate .ROUTE 03/17/23 aspirin 81 mg tablet,delayed release (Adult Low Dose Aspirin) 81 mg PO DAILY 03/17/23 lisinopril 20 mg tablet 20 mg PO DAILY 03/17/23 metoprolol tartrate 50 mg tablet 75 mg PO BID 03/17/23 potassium 99 mg tablet 99 mg PO DAILY 03/17/23 umeclidinium-vilanterol inhalation 03/17/23 furosemide 40 mg tablet 40 mg PO DAILY #30 tabs 03/19/23 metoprolol tartrate 25 mg tablet 25 mg PO BID #30 tabs 03/19/23 Hospital Course Operations None Procedures 2-D Echocardiogram Summary of Care Provided Minutes Spent on Discharge: 55 Hospital Course: Patient is a 52-year-old female with past medical history as outlined was admitted to the ED on 03/17/2023 with a complaint of bilateral lower extremity swelling and abdominal distention which had been going on for about 2 days prior to admission. She was also short of breath. Patient was on home oxygen as she had apparently been prescribed 2 L of oxygen but she states she had been using 45 L of oxygen at home. At time she came into the ED she was saturating at 78% on room air. Patient does smoke 1 to 2 packs daily. BNP was slightly elevated at 299. Chest x-ray showed central pulmonary vascular congestion. EKG showed no acute ST changes. She was admitted and managed for acute on chronic heart failure preserved ejection fraction. She was diuresed with IV Lasix. 2D echo done showed EF of 55% with 2+ diastolic dysfunction. His shortness of breath improved. Patient had a walking pulse ox which showed that she required 4 L of oxygen at rest and 5 with ambulation which send with what she said she had been using at home though her doctor prescribed only 2 L of oxygen. Of note she was also started on IV antibiotics for presumptive cellulitis of the lower extremiti es. However upon further review it did not look like patient has cellulitis and was more due to the edema. Duplex of the lower extremities was negative for DVT. Patient had initially requested to be discharged on 19 March but was counseled to stay for further diuresis. Her blood pressure trended on the lower side so her metoprolol 75 mg twice daily was discontinued and she was placed on metoprolol 25 mg twice daily. She was to continue on her lisinopril 20 mg daily. Her Maxzide was discontinued and she was placed on Lasix 40 mg daily. She is follow-up with her primary care doctor within 1 to 2 weeks. She was counseled to quit smoking and be compliant with her Lasix. Patient seen and examined prior to discharge. She had no active complaints and had an uneventful night. Review of systems otherwise negative. Labs and vitals reviewed. Home medication reviewed and reconciled. Physical Exam Const alert, oriented x3 and no apparent distress Constitutional Narrative: obese General Appearance: cooperative and comfortable Orientation / Consciousness: awake HEENT normocephalic, head/scalp atraumatic, hearing grossly normal bilaterally, moist oral mucous membranes and oropharynx normal Mouth: oral and palatal mucosa normal Eyes PERRL and EOMs intact bilaterally Neck no lymphadenopathy and supple Lymph Lymphatic: no lymphadenopathy noted and no lymphedema noted Resp normal respiratory effort Resp Narrative: diminished breath sounds bibasally, no wheezes or crackles. on 4L of oxygen. Cardio regular rate, regular rhythm, S1 normal heart sound, S2 normal heart sound and no murmurs Peripheral Pulses: pulses 2+ throughout GI normal to inspection, nondistended, normoactive bowel sounds, soft to palpation and non-tender Extremity normal capillary refill, no clubbing, cyanosis or edema and no calf tenderness Extremity Narrative: Bilateral swelling, minimal erythema of LEs, no differential warmth. General Extremity: no tenderness to palpation of joints or extremities Skin General Skin Exam: no breakdown and turgor normal Neuro oriented x3, CN's II-XII intact bilaterally, no focal motor deficits, no sensory deficits noted and deep tendon reflexes 2+ bilaterally Sensorium / Orientation: awake and alert Motor Exam: strength 5/5 throughout and general weakness Psych thought process normal and cooperative Appearance: appropriate Weight / BMI Weight Weight: 341 lb 4.409 oz Body Mass Index (BMI) 53.4 ABG / Lab / Microbiology Data 03/19/23 05:19 03/19/23 05:19 Laboratory: Laboratory Results - last 24 hr 03/19/23 05:19: WBC 8.7, RBC 4.45, Hgb 13.5, Hct 46.8, MCV 105.2 H, MCH 30.3, MCHC 28.8 L, RDW Std Deviation 56.1 H, RDW Coeff of Fernando 14.3, Plt Count 130 L, MPV 12.1 H, Immature Gran % (Auto) 0.800, Neut % (Auto) 77.2 H, Lymph % (Auto) 12.2 L, Hodgeman % (Auto) 8.7, Eos % (Auto) 0.9, Baso % (Auto) 0.2, Absolute Neuts (auto) 6.7, Absolute Lymphs (auto) 1.06, Nucleated RBC % 0, Sodium 143, Potassium 5.2 H, Chloride 109 H, Carbon Dioxide 33.0 H, Anion Gap 1 L, BUN 22 H, Creatinine 1.76 H, Estim Creat Clear Calc 37.19, Est GFR (MDRD) Af Amer 39 L, Est GFR (MDRD) Non-Af 32 L, BUN/Creatinine Ratio 12.5, Glucose 103, Calcium 8.0 L Radiography Diagnostic Testing: Radiology Impression Venous Doppler Study 03/18/23 11:10 Interpretation Summary Deep veins of the bilateral lower extremities are patent and compressible segmentally. There is no evidence of bilateral lower extremity deep vein thrombosis. The bilateral great saphenous veins appear patent and compressible segmentally. Ordering Physician: Rashida Dixon Performed By: Demian Parmar RVT D/C Instructions Discharge Diet: Low fat / Low cholesterol Discharge Activity: Return to Normal Activity Weight Bearing Status: Weight bearing as tolerated Call your doctor if you observe: Fever of 101 or Higher, Shortness of breath, Dizziness, Swelling in the ankles and Increased palpitations (irregular heartbeat) Meaningful Use Info Meaningful Use Diagnoses (Choose all that apply): CHF AMI/Post PCI/Angioplasty Documented LVEF (%): 55 CHF ADAM/ARB ordered at discharge?: Yes Documented LVEF (%): 55 Discharge Plan Admission Admit Date/Time: 03/17/23 23:26 Primary Reason for Your Visit: acute on chronic HFpEF Attending Provider: Rashida Dixon Primary Care Provider: Imtiaz Marie Consulting Providers: Aggie Mullins Instructions Patient Instructions: Coping with Heart Failure Additional Instructions / Restrictions: use oxygen 4-5L for shortness of breath as needed Discharge Orders/Prescriptions Prescriptions: New furosemide 40 mg tablet 40 mg PO DAILY Qty: 30 2RF metoprolol tartrate 25 mg tablet 25 mg PO BID Qty: 30 2RF Continued aspirin 325 MG tablet,delayed release (DR/EC) 325 mg PO DAILY Hold Instructions: Ordered metoprolol tartrate 50 mg tablet 75 mg PO BID Patient Comments: take 1 AND 1/2 tablet by mouth twice a day aspirin [Adult Low Dose Aspirin] 81 mg tablet,delayed release (DR/EC) 81 mg PO DAILY lisinopril 20 mg tablet 20 mg PO DAILY Patient Comments: take 1 tablet by mouth once daily potassium 99 mg tablet 99 mg PO DAILY umeclidinium-vilanterol [Anoro Ellipta] inhalation albuterol sulfate [Ventolin HFA] .ROUTE Discontinued furosemide 20 MG tablet 20 mg PO DAILY Qty: 10 0RF triamterene-hydrochlorothiazid 75-50 mg tablet 1 tab PO DAILY Patient Comments: take 1 tablet by mouth once daily Referrals / Follow Up: Imtiaz Marie MD [Primary Care Provider] - Care Physician,No Primary [Non-Staff] - Disposition Disposition (needs filled in before D/C Order can be placed): Home, Self Care Charges/Coding Visit Charges Inpatient E&M: 24375 Disch Hosp >30min
[2023-03-19 14:16] VITALS: BP 110/60; PULSE 78; RESP 18; TEMP 36.6; O2SAT 95
--- OUTSIDE RECORDS SUMMARY | 2023-03-19 18:01 | XMS RPT_ITS | CCD ---
Author Name Unknown Address [address] [place] [address] Organization [facility] Care Team Providers Care Manager Digital Name Role Phone TRESA SCHUSTER Unavailable Unavailable TRESA SCHUSTER Unavailable Unavailable Carisa Sanchez Primary Care Provider Israel Randolph MD Primary Care Provider Israel Randolph MD Primary Care Provider Israel Randolph MD Primary Care Provider Israel Randolph MD Primary Care Provider Keira Hurley MD Primary Care Provider ISRAEL RANDOLPH Primary Care Unavailab le PODLOGAR, GAY Attending Unavailable ISRAEL RANDOLPH Primary Care Unavailab ISRAEL Mcnulty Referring Unavailab le PODLOGAR, GAY Attending Unavailable ISRAEL RANDOLPH Primary Care Unavailab le PODLOGAR, GAY Referring Unavailable PODLOGAR, GAY Referring Unavailable ISRAEL RANDOLPH Primary Care Unavailab le PODLOGAR, GAY Referring Unavailable ISRAEL RANDOLPH Primary Care Unavailab CRISTEL [place] Attending Unavailable KEIRA HURLEY Primary Care Unavailable KEIRA HURLEY Attending Unavailable KEIRA HURLEY Primary Care Unavailable KEIRA HURLEY Attending Unavailable MEI, KEIRA Primary Care Unavailable MEI, KEIRA Primary Care Unavailable KEIRA HURLEY Attending Unavailable KEIRA HURLEY Primary Care Unavailable KEIRA HURLEY Attending Unavailable Allergies Allergy Classification Reported Allergen(s) Allergy Type Date of Onset Reaction(s) Facility (20 sources) Naproxen; Translations: [NAPROXEN] Drug Allergy 01-17-2015 Shortness Of Breath, Anaphylaxis, Vomiting [facility] [place], [place] Medications Current Medications Medication Drug Class(es) Dates Sig (Normalized) Sig (Original) albuterol 0.83 mg/ml inhalation solution (20 sources) beta2-Adrenergic Agonist Start: 12-17-2022 take 2 puff(s) by inhalation every six hours as needed for wheezing Ventolin HFA 108 (90 Base) MCG/ACT inhaler Inhale 2 puffs every 6 hours as needed for wheezing. 18 g 2 12/17/2022 Active Completed/Discontinued Medications Medication Drug Class(es) Dates Sig (Normalized) Sig (Original) albuterol 0.833 mg/ml / ipratropium bromide 0.167 mg/ml inhalation solution (2 sources) Anticholinergic, beta2-Adrenergic Agonist Start: 02-26-2023 End: 02-26-2023 ipratropium-albute rol (Duo-Neb) 0.5-2.5 mg/3 mL nebulizer solution 3 mL bisacodyl 10 mg rectal suppository (5 sources) Stimulant Laxative Start: 09-16-2022 End: 02-26-2023 bisacodyl (Dulcolax) 10 MG suppository cephalexin 500 mg oral capsule (7 sources) Cephalosporin Antibacterial Start: 05-26-2020 End: 08-03-2021 cephALEXin (KEFLEX) 500 mg capsule Take 500 mg by mouth four times daily. 4 times per day for 7 days 0 05/26/2020 08/03/2021 Discontinued (Course of therapy completed) Problems Active Problems Problem Classification Problem Date Documented Date Episodic/Chronic Anxiety disorders (13 sources) Anxiety; Translations: [Anxiety disorder, unspecified] Onset: 12-05-2014 12-05-2014 Chronic Cardiac dysrhythmias (6 sources) Paroxysmal supraventricular tachycardia; Translations: [Supraventricular tachycardia] Onset: 12-04-2021 Chronic Cardiac dysrhythmias (2 sources) Palpitations; Translations: [Palpitations] Episodic Chronic obstructive pulmonary disease and bronchiectasis (10 sources) Pulmonary emphysema; Translations: [Other emphysema] Onset: 09-16-2022 09-16-2022 Chronic Diabetes mellitus without complication (1 source) Increased glucose level; Translations: [Other abnormal glucose] Episodic Essential hypertension (17 sources) Essential hypertension; Translations: [Essential (primary) hypertension] Onset: 08-14-2022 Chronic Fluid and electrolyte disorders (1 source) Hyperkalemia; Translations: [Hyperkalemia] Episodic Miscellaneous mental health disorders (20 sources) Chronic insomnia; Translations: [Psychophysiologic insomnia] Onset: 05-26-2018 05-26-2018 Chronic Mood disorders (12 sources) Depressive disorder; Translations: [Depression] Onset: 12-05-2014 12-05-2014 Chronic Osteoarthritis (20 sources) Arthritis of knee; Translations: [Unilateral primary osteoarthritis, unspecified knee] Onset: 10-16-2016 10-16-2016 Chronic Other and unspecified benign neoplasm (3 sources) Adrenal adenoma; Translations: [Benign neoplasm of unspecified adrenal gland] Episodic Other and unspecified benign neoplasm (1 source) Bilateral adenoma of adrenal glands; Translations: [Benign neoplasm of right adrenal gland] Episodic Other endocrine disorders (2 sources) Disorder of adrenal gland; Translations: [Disorder of adrenal gland, unspecified] Chronic Other lower respiratory disease (9 sources) Dyspnea; Translations: [Shortness of breath] Onset: 02-26-2023 Episodic Other lower respiratory disease (2 sources) Shortness of breath; Translations: [Shortness of breath] Onset: 12-04-2021 Episodic Other lower respiratory disease (1 source) Hypoxia; Translations: [Hypoxemia] 02-26-2023 Episodic Other nutritional; endocrine; and metabolic disorders (20 sources) Morbid obesity; Translations: [Morbid (severe) obesity due to excess calories] Onset: 12-05-2014 12-05-2014 Chronic Other nutritional; endocrine; and metabolic disorders (2 sources) Morbid (severe) obesity due to excess calories; Translations: [Morbid (severe) obesity due to excess calories (HCC)] Onset: 01-04-2022 Chronic Residual codes; unclassified (4 sources) Tobacco user; Translations: [Tobacco abuse disorder] 12-05-2014 Chronic Skin and subcutaneous tissue infections (2 sources) Cellulitis; Translations: [Cellulitis of abdominal wall ] Episodic Substance-related disorders (20 sources) Heroin dependence; Translations: [Opioid dependence, uncomplicated] Onset: 09-12-2015 03-07-2016 Chronic Substance-related disorders (1 source) Marijuana user; Translations: [Cannabis use, unspecified, uncomplicated] Episodic Substance-related disorders (3 sources) Opioid abuse, in remission; Translations: [History of heroin abuse] Onset: 09-12-2015 09-12-2015 Past or Other Problems Problem Classification Problem Date Documented Da te Episodic/Chronic Mood disorders (7 sources) Mood disorders Onset: 08-14-2022 08-14-2022 Nonspecific chest pain (3 sources) Chest pain; Translations: [Chest pain, unspecified] Onset: 12-04-2021 Episodic Other connective tissue disease (20 sources) Plantar fasciitis; Translations: [Plantar fascial fibromatosis] Onset: 10-16-2016 10-16-2016 Episodic Other lower respiratory disease (8 sources) Hypoxemia; Translations: [Hypoxemia] Onset: 09-16-2022 09-16-2022 Episodic Other lower respiratory disease (1 source) Hypoxemia; Translations: [Hypoxemia] Onset: 09-16-2022 Episodic Other screening for suspected conditions (not mental disorders or infectious disease) (8 sources) Patient encounter status; Translations: [Encounter for screening for lipoid disorders] Onset: 09-16-2022 Episodic Poisoning by other medications and drugs (10 sources) Allergic reaction to drug; Translations: [Allergy, unspecified, initial encounter] Onset: 01-17-2015 01-17-2015 Episodic Residual codes; unclassified (20 sources) Tobacco use and exposure - finding; Translations: [Tobacco use] Onset: 09-16-2022 03-07-2016 Episodic Residual codes; unclassified (7 sources) Tobacco user; Translations: [Tobacco use] Onset: 12-05-2014 01-04-2022 Episodic Residual codes; unclassified (5 sources) Dependent edema; Translations: [Edema, unspecified] Onset: 10-14-2022 10-14-2022 Episodic Residual codes; unclassified (1 source) Tobacco use; Translations: [Tobacco use] Onset: 01-04-2022 Episodic Syncope (3 sources) Syncope and collapse; Translations: [Syncope and collapse] Onset: 12-04-2021 Episodic Results Test Name Value Interpretation Reference Range Facil ity Vital Signs Date Time Vital Sign Value Performing Clinician Alexi mikhail 02-26-2023 15:37-0500 SaO2% (BldA) [Mass fraction] 96 % Cristel Pichardo CLAIMS SPECIALIST - ENGINEERING OFFICER Work Phone: [facility] Encounters Encounter Date Encounter Type Care Provider Facility Start: 02-26-2023 End: 02-26-2023 ambulatory CRISTEL PICHARDO [facility] Start: 02-26-2023 End: 02-26-2023 Office outpatient visit 25 minutes Cristel Pichardo CLAIMS SPECIALIST - ENGINEERING OFFICER Work Phone: [facility] Procedures Date Procedure Procedure Detail Performing Clinician Start: 09-16-2022 Lipid 1996 panel - S ivone or Plasma Keira Hurley MD Work Phone: Start: 08-09-2021 Ct abdomen w/o & w/contrast material Gay Podlogkatie CLAIMS SPECIALIST.ENGINEERING OFFICER Work Phone: Start: 06-09-2020 Adult depression scr eening assessment Israel Randolph MD Work Phone: Start: 05-11-2020 Urine test visual color cmprsn meths You Adusumilli Work Phone: Start: 05-11-2020 Urnls dip stick/tabl et rgnt auto w/o microscopy You Adusumilli Work Phone: Start: 05-11-2020 Assay of lactate You Adusumilli Work Phone: Start: 05-11-2020 Basic metabolic pane l calcium total You Adusumilli Work Phone: Start: 05-11-2020 Blood count complete auto&auto difrntl wbc You Adusumilli Work Phone: Start: 04-08-2020 Radiologic exam ches t single view Ben Porter Work Phone: Start: 04-08-2020 Assay of thyroid stimulating hormone tsh Ben Porter Work Phone: Start: 04-08-2020 Assay of troponin quantitative Ben Porter Work Phone: Start: 04-08-2020 Blood count complete auto&auto difrntl wbc Ben Porter Work Phone: Start: 04-08-2020 Comprehensive metabo lic panel Ben Porter Work Phone: Start: 04-08-2020 Fibrin dgradj produc ts d-dimer quantitative Ben Porter Work Phone: Plan of Treatment Date Care Activity Detail Author Start: 2032 RSV Immunization age d 60 or older (1 - 1-dose 60+ series) RSV Immunization aged 60 or older (1 - 1-dose 60+ series) [facility] Start: 06-09-2030 DTaP/Tdap/Td Vaccine s (2 - Td or Tdap) DTaP/Tdap/Td Vaccines (2 - Td or Tdap) [facility] Start: 06-09-2030 Urine microalbumin profile DTAP,TDAP,TD (2 - Td or Tdap) [facility] Start: 09-17-2027 Lipid panel Lipid Panel [facility] Start: 08-09-2026 LIPID SCREEN LIPID SCREEN [facility] Start: 12-04-2024 DIABETES SCREEN DIABETES SCREEN [facility] Start: 08-21-2024 DIABETES SCREEN DIABETES SCREEN [facility] Start: 08-09-2024 DIABETES SCREEN DIABETES SCREEN [facility] Start: 02-27-2024 Screening for malign ant neoplasm of breast Mammogram [facility] Immunizations Immunization Date Immunization Notes Care Provider Fa cility 06-09-2020 tetanus toxoid, redu jennifer diphtheria toxoid, and acellular pertussis vaccine, adsorbed Israel Randolph MD Work Phone: [facility] 03-07-2016 pneumococcal polysaccharide vaccine, 23 valent Israel Randolph MD Work Phone: [facility] 1971 measles, mumps and rubella virus vaccine Keira Hurley MD Work Phone: [facility] Payers Date Payer Category Payer Medicaid [id number] 2016 Self-pay 2015 Medicaid [facility] MEDICA[facility] [employer] MEDICAID [id number] 2015-Present [phone] [address] [place] [address] Medicaid [id number] 2015 Medicaid [id number] 2014 Private Health Insurance [id number] Social History Date Type Detail Facility Start: 05-11-2020 End: 02-26-2023 Tobacco smoking status NHIS Current every day smoker [facility] Work Phone: Start: 05-11-2020 End: 08-14-2022 Cigarettes smoked current (pack per day) - Reported [employer] Start: 05-11-2020 End: 02-26-2023 Tobacco use and exposure Never used [employer] Start: 05-11-2020 End: 02-26-2023 Alcohol intake Current non-drinker of alcohol (finding) [employer] Start: 1970 Sex Assigned At Not on file M DaWanda Start: 06-19-2021 End: 11-18-2022 Exposure to SARS-CoV-2 (event) Not sure [employer] History of tobacco use Cigarette Smoker [facility] Work Phone: Start: 05-31-2020 End: 12-19-2021 Alcohol intake Current drinker of alcohol (finding) [facility] Start: 08-11-2021 End: 08-21-2021 Exposure to SARS-CoV-2 (event) Unable to assess [facility] Work Phone: Start: 08-14-2022 End: 02-26-2023 Tobacco use panel [facility] How hard is it for y ou to pay for the very basics like food, housing, medical care, and heating Hard [place] (I/We) worried wheth er (my/our) food would run out before (I/we) got money to buy more. Sometimes true [place] The food that (I/we) bought just didn't last, and (I/we) didn't have money to get more. DK or Refused [place] In the past 12 month s, has lack of transportation kept you from medical appointments or from getting medications? Yes [facility] Clinical Notes 07-04-2021 to 02-26-2023 Cristel Pichardo, ABBIE - ENGINEERING OFFICER - 02/26/2023 3:00 PM ESTPatient InstructionsAttachmentsTelephone Encounter - Laura Madrigal, ABBIE Salmeron CNP - 02/20/2023 12:00 PM Isreal Kern MA - 11/18/2022 2:15 PM EDT Note Date & Type Note Facility 02-26-2023 History of Present illness Narrative Images from the original note were not included. 02/26/2023 Nikole Bhardwaj (: 1970) is a 52 y.o. female , Established patient, here for evaluation of the following chief complaint(s): COPD (Onset 6 months) and Health Maintenance (Pt declines all HM items, flu/PNA/Shingrix/Hep B vaccine, Mammogram, pap smear, colonoscopy, COVID vaccines, HIV/Hep C screens) ASSESSMENT/PLAN: 1. Other emphysema (HCC) - ipratropium-albuterol (Duo-Neb) 0.5-2.5 mg/3 mL nebulizer solution 3 mL; 3 mL, Nebulization, Once, On Fri02/26/23 at 1515, For 1 dose - umeclidinium-vilanterol (Anoro Ellipta) 62.5-25 MCG/ACT aerosol powder ; Inhale 1 puff in the morning., Starting Fri02/26/2023, Normal - Home Oxygen - External referral to Pulmonology - STAT home O2 order placed. Recommended ER evaluation due to low readings and refused to go. Called oxygen supplier and will get her set up JUNIOR. - Discussed signs and symptoms warranting immediate attention- verbalized understanding. - Will start on a daily maintenance inhaler and referral placed with pulmonology. 2. Hypoxia - Home Oxygen - External referral to Pulmonology 3. Shortness of breath - ipratropium-albuterol (Duo-Neb) 0.5-2.5 mg/3 mL nebulizer solution 3 mL; 3 mL, Nebulization, Once, On Fri02/26/23 at 1515, For 1 dose - External referral to Pulmonology Follow up in about 2 weeks (around 03/12/2023) for follow up hypoxia and emphysema. SUBJECTIVE/OBJECTIVE: ANJUM Agustin presents today with concerns of her COPD not being well controlled for the past several months. Denies use of a daily maintenance inhaler. Does have a home nebulizer that she uses that is helpful. States she has been so short of breath she struggles to work and even take a shower. Denies fevers. Was seen back in October for this and an order was written for home O2 but she did not get this set up stating she was not sure if she needed it since she is a mouth breather and was not sure if it would help. Resting pulse oximeter was 86-87%. Administered a Duo-Neb treatment and sat came up to 90% at rest. Got her up and walked her in the hallway and less than 1 minute into walking her sat dropped to 82%. Lowest sat was 78%. Placed her on 2 L of oxygen via nasal canula and sat came up to 96%. Health Maintenance: Declines all HM items, flu/PNA/Shingrix/Hep B vaccine, Mammogram, pap smear, colonoscopy, COVID vaccines, HIV/Hep C screens. Review of Systems Constitutional: Negative for chills and fever. Respiratory: Positive for chest tightness, shortness of breath and wheezing. Negative for cough. Cardiovascular: Negative for chest pain. Neurological: Negative for dizziness, syncope and light-headedness. Psychiatric/Behavioral: Negative for confusion. Vitals: 02/26/23 1453 02/26/23 1537 BP: 124/52 Pulse: 64 SpO2: (!) 87% 96% Weight: (!) 344 lb (156 kg) Height: 5' 7 (1.702 m) Body mass index is 53.88 kg/m . Physical Exam Constitutional: General: She is not in acute distress. Cardiovascular: Rate and Rhythm: Normal rate and regular rhythm. Heart sounds: Normal heart sounds. Pulmonary: Effort: Pulmonary effort is normal. No tachypnea, accessory muscle usage, prolonged expiration or respiratory distress. Breath sounds: No stridor. No wheezing, rhonchi or rales. Comments: Negative for central cyanosis. Skin: General: Skin is warm and dry. Neurological: Mental Status: She is alert and oriented to person, place, and time. Psychiatric: Mood and Affect: Mood normal. Behavior: Behavior normal. Thought Content: Thought content normal. Judgment: Judgment normal. An electronic signature was used to authenticate this note. ABBIE Logan CNP 02/26/2023 4:10 PM documented in this encounter [facility] 02-26-2023 Instructions ABBIE Logan CNP - 02/26/2023 3:00 PM EST Kwesi Lorenzo MD- pulmonology [address], [place] [address] The following attachments cannot be sent through Care Everywhere.Umeclidinium and Vilanterol, ADULT (Slovenian)documented in this encounter [facility] 02-20-2023 Telephone encounter Note Reviewed chart. Refill appropriate. RX sent. [facility] 02-20-2023 Miscellaneous Notes Reviewed chart. Refill appropriate. RX sent. Prescription Request: Last medication check: new pt 08/14/22 Last physical exam: none Last completed appointment: 11/18/22 Next scheduled appointment: none Last date of refill on this medication: 08/14/22 documented in this encounter [facility] 02-20-2023 Telephone encounter Note Prescription Request: Last medication check: new pt 08/14/22 Last physical exam: none Last completed appointment: 11/18/22 Next scheduled appointment: none Last date of refill on this medication: 08/14/22 [facility] 02-04-2023 Telephone encounter Note Name of caller: Nikole Contact phone number: [phone] Relationship to Patient: patient Provider: Dr. Hurley Practice: [facility] Chief Complaint/Reason for Call: The patient is calling in stating that [facility] states they did not get the refill for her medication called albuterol (2.5 MG/3ML) 0.083% nebulizer solution. The patient is asking if the prescrition can be resent to [facility]. Please advise. Best time of day caller can be reached: Any Patient advised that office/PCP has 24-48 business hours to return their call: No [facility] 02-04-2023 Miscellaneous Notes Name of caller: Nikole Contact phone number: [phone] Relationship to Patient: patient Provider: Dr. Hurley Practice: [facility] Chief Complaint/Reason for Call: The patient is calling in stating that [facility] states they did not get the refill for her medication called albuterol (2.5 MG/3ML) 0.083% nebulizer solution. The patient is asking if the prescrition can be resent to [facility]. Please advise. Best time of day caller can be reached: Any Patient advised that office/PCP has 24-48 business hours to return their call: No documented in this encounter [facility] 01-28-2023 Telephone encounter Note Ordering provider: Dr. Hurley Date of last office visit: 11.18.2022 Date of next office visit: NA Updated/Validated preferred pharmacy: Yes Patient instructed to contact the pharmacy prior to picking up the medication: Yes (1) Medication name: albuterol (2.5 MG/3ML) 0.083% nebulizer solution Medication dosage: 2.5 mg (Miligrams Monthly quantity needed: 360 mL How many day supply requestin days Medication route: inhalation (inhaler) Medication administration time(s): as needed (PRN) If taking medication PRN, reason for taking medication: Wheezing If this is a controlled substance do you receive this or any other controlled medication from any other doctor or facility: No Date of last refill (see medication tab): 11.11.2022 (2) Medication name: lisinopril 20 MG tablet Medication dosage: 20 mg (Miligrams Monthly quantity needed: 90 How many day supply requestin days Medication route: oral (PO) Medication administration time(s): daily If taking medication PRN, reason for taking medication: N/A If this is a controlled substance do you receive this or any other controlled medication from any other doctor or facility: No Date of last refill (see medication tab): 08.14.2022 [facility] 01-28-2023 Miscellaneous Notes Ordering provider: Dr. Hurley Date of last office visit: 11.18.2022 Date of next office visit: NA Updated/Validated preferred pharmacy: Yes Patient instructed to contact the pharmacy prior to picking up the medication: Yes (1) Medication name: albuterol (2.5 MG/3ML) 0.083% nebulizer solution Medication dosage: 2.5 mg (Miligrams Monthly quantity needed: 360 mL How many day supply requestin days Medication route: inhalation (inhaler) Medication administration time(s): as needed (PRN) If taking medication PRN, reason for taking medication: Wheezing If this is a controlled substance do you receive this or any other controlled medication from any other doctor or facility: No Date of last refill (see medication tab): 11.11.2022 (2) Medication name: lisinopril 20 MG tablet Medication dosage: 20 mg (Miligrams Monthly quantity needed: 90 How many day supply requestin days Medication route: oral (PO) Medication administration time(s): daily If taking medication PRN, reason for taking medication: N/A If this is a controlled substance do you receive this or any other controlled medication from any other doctor or facility: No Date of last refill (see medication tab): 08.14.2022 documented in this encounter [facility] 11-18-2022 Evaluation + Plan note Associated Problem(s): Cigarette smoker Continues to smoke, she says she is only smoking 6 cigarettes a day so I told her that if she is only smoking that many she should be able to get rid of them immediately. I said it did not make any sense that someone is pain for her medications and soon oxygenIf she continues to smoke [facility] 11-18-2022 Evaluation + Plan note Associated Problem(s): Hypoxemia We called the oxygen supplier to see if they can bring her oxygen JUNIOR. [facility] 11-18-2022 Miscellaneous Notes Associated Problem(s): Cigarette smoker Continues to smoke, she says she is only smoking 6 cigarettes a day so I told her that if she is only smoking that many she should be able to get rid of them immediately. I said it did not make any sense that someone is pain for her medications and soon oxygenIf she continues to smoke Associated Problem(s): Hypoxemia We called the oxygen supplier to see if they can bring her oxygen JUNIOR. Associated Problem(s): Hypertension Controlled, continue lisinopril 20 mg daily and metoprolol 75 mg twice a day and Maxzide 70-50 mg tablet daily Associated Problem(s): Other emphysema (HCC) Encouraged smoking cessation, we called the oxygen supplier and they said they had tried to contact her multiple times and left messages. Continue albuterol nebulizer solution, we will get her a new mask and tube and albuterol inhaler. documented in this encounter [facility] 11-18-2022 Evaluation + Plan note Associated Problem(s): Hypertension Controlled, continue lisinopril 20 mg daily and metoprolol 75 mg twice a day and Maxzide 70-50 mg tablet daily [facility] 11-18-2022 Evaluation + Plan note Associated Problem(s): Other emphysema (HCC) Encouraged smoking cessation, we called the oxygen supplier and they said they had tried to contact her multiple times and left messages. Continue albuterol nebulizer solution, we will get her a new mask and tube and albuterol inhaler. [facility] 11-18-2022 History of Present illness Narrative Patient verified by last name and date of . Images from the original note were not included. 11/18/2022 Nikole Bhardwaj (: 1970) is a 52 y.o. female , Established patient, here for evaluation of the following chief complaint(s): Emphysema and hypoxemia (Has not gotten oxygen yet ) ASSESSMENT/PLAN: 1. Other emphysema (HCC) Assessment & Plan: Encouraged smoking cessation, we called the oxygen supplier and they said they had tried to contact her multiple times and left messages. Continue albuterol nebulizer solution, we will get her a new mask and tube and albuterol inhaler. 2. Primary hypertension Assessment & Plan: Controlled, continue lisinopril 20 mg daily and metoprolol 75 mg twice a day and Maxzide 70-50 mg tablet daily 3. Hypoxemia Assessment & Plan: We called the oxygen supplier to see if they can bring her oxygen JUNIOR. Follow up in about 4 weeks (around 12/16/2022). SUBJECTIVE/OBJECTIVE: ANJUM Spencer comes in today for follow-up on her oxygen, she still has not received it and we ordered that about a month ago. She says they have never called her or left a message since her voicemail does not work and she has not seen their phone number on her caller ID. She continues to have hypoxemia and she continues to smoke she says she is down to about 6 cigarettes so I told her she needs to just throw more when and quit smoking because someone is paying for her medications, her oxygen and she is buying cigarettes. Blood pressure looks excellent today Review of Systems Constitutional: Negative for chills and fever. HENT: Negative for ear pain, rhinorrhea and sinus pressure. Respiratory: Positive for shortness of breath and wheezing. Cardiovascular: Negative for chest pain and palpitations. Vitals: 11/18/22 1408 BP: 100/55 Pulse: 63 SpO2: (!) 89% Weight: (!) 333 lb 3.2 oz (151 kg) Height: 5' 7 (1.702 m) Physical Exam Vitals and nursing note reviewed. Constitutional: General: She is not in acute distress. Appearance: Normal appearance. HENT: Head: Normocephalic and atraumatic. Mouth/Throat: Mouth: Mucous membranes are moist. Pharynx: Oropharynx is clear. Eyes: Extraocular Movements: Extraocular movements intact. Pupils: Pupils are equal, round, and reactive to light. Cardiovascular: Rate and Rhythm: Normal rate and regular rhythm. Heart sounds: Normal heart sounds. No murmur heard. Pulmonary: Effort: Pulmonary effort is normal. Breath sounds: Examination of the right-middle field reveals decreased breath sounds. Examination of the left-middle field reveals decreased breath sounds. Examination of the right-lower field reveals decreased breath sounds. Examination of the left-lower field reveals decreased breath sounds. Decreased breath sounds present. Musculoskeletal: Cervical back: Neck supple. Lymphadenopathy: Cervical: No cervical adenopathy. Neurological: Mental Status: She is alert. An electronic signature was used to authenticate this note. Keira Hurley MD 11/18/2022 5:01 PM documented in this encounter [facility] 10-21-2022 Miscellaneous Notes Letter mailed to pt home notifying pt that she is due for a follow up and to call office to schedule. Carlene Fajardo Ma Phoned patient and message left for her to return call to schedule and appointment with PCP/team. Patient was advised 12/19/21 to follow back up 2 weeks or sooner. documented in this encounter [facility] 10-03-2022 Telephone encounter Note ERROR [facility] 10-03-2022 Miscellaneous Notes ERROR documented in this encounter [facility] 09-13-2022 Telephone encounter Note Rx sent. [facility] 09-13-2022 Miscellaneous Notes Rx sent. Medication name: albuterol Medication dosage: 2.5 mg/3ml Monthly quantity needed: 30 How many day supply requestin days Medication route: inhalation (inhaler) Medication administration time(s): every 6 hours If taking medication PRN, reason for taking medication: N/A If this is a controlled substance do you receive this or any other controlled medication from any other doctor or facility: No Ordering provider: Mei Date of last office visit: 08.14.22 Date of next office visit: 09.16.22 Date of last refill: (see medication tab): 08.14.22 Updated/Validated preferred pharmacy: Yes Patient instructed to contact the pharmacy prior to picking up the medication: Yes documented in this encounter [facility] 09-13-2022 Telephone encounter Note Medication name: albuterol Medication dosage: 2.5 mg/3ml Monthly quantity needed: 30 How many day supply requestin days Medication route: inhalation (inhaler) Medication administration time(s): every 6 hours If taking medication PRN, reason for taking medication: N/A If this is a controlled substance do you receive this or any other controlled medication from any other doctor or facility: No Ordering provider: Mei Date of last office visit: 08.14.22 Date of next office visit: 09.16.22 Date of last refill: (see medication tab): 08.14.22 Updated/Validated preferred pharmacy: Yes Patient instructed to contact the pharmacy prior to picking up the medication: Yes [facility] 08-20-2022 Miscellaneous Notes Patient is due for in office appointment. Please assist in scheduling. Gay Crisostomo APRN.CNP Patient asking for the name brand Ventolin. ROBERT 12/19/21 NOV no upcoming appt noted Patient has been identified by name and date of : Yes Requested Prescriptions Pending Prescriptions Disp Refills albuterol HFA (VENTOLIN HFA) 90 mcg/actuation inhaler 18 g 1 Sig: Inhale 2 Puffs as instructed every 4 hours as needed for wheezing/shortness of breath. RX INSTRUCTIONS: Patient aware RX will be sent to pharmacy. No need to notify patient. Erica Benavidez documented in this encounter [facility] 06-17-2022 Miscellaneous Notes The following approved medication requests have been transmitted electronically. Requested Prescriptions Pending Prescriptions Disp Refills hydroCHLOROthiazide 50 mg tablet 90 tablet 1 Sig: Take 1 tablet by mouth once daily. albuterol HFA (VENTOLIN HFA) 90 mcg/actuation inhaler 18 g 1 Sig: Inhale 2 Puffs as instructed every 4 hours as needed for wheezing/shortness of breath. Refused Prescriptions Disp Refills metoprolol tartrate, short acting, (LOPRESSOR) 50 mg tablet 180 tablet 1 Sig: Take 1 tablet by mouth twice daily. Refused By: AURELIANO MELGAR Reason for Refusal: Patient has requested refill too soon Arben Lopez APRN.CNP ROBERT 12/19/21 NOV none scheduled Metoprolol sent to pharmacy 03/19/22 as a 90 day supply with 1 refill. Pt will need to be notified to contact pharmacy to refill that. Aureliano Melgar MA Patient has been identified by name and date of : Yes Requested Prescriptions Pending Prescriptions Disp Refills metoprolol tartrate, short acting, (LOPRESSOR) 50 mg tablet 180 tablet 1 Sig: Take 1 tablet by mouth twice daily. hydroCHLOROthiazide 50 mg tablet 90 tablet 1 Sig: Take 1 tablet by mouth once daily. albuterol HFA (VENTOLIN HFA) 90 mcg/actuation inhaler 18 g 1 Sig: Inhale 2 Puffs as instructed every 4 hours as needed for wheezing/shortness of breath. RX INSTRUCTIONS: Patient aware RX will be sent to pharmacy. No need to notify patient. Erica Benavidez documented in this encounter [facility] 05-09-2022 Miscellaneous Notes Patient has been identified by name and date of : Yes Requested Prescriptions Pending Prescriptions Disp Refills albuterol HFA (VENTOLIN HFA) 90 mcg/actuation inhaler 18 g 1 Sig: Inhale 2 Puffs as instructed every 4 hours as needed for wheezing/shortness of breath. RX INSTRUCTIONS: Patient aware RX will be sent to pharmacy. No need to notify patient. 12/19/21 No scheduled visits. Erica Benavidez documented in this encounter [facility] 04-24-2022 Note Patient Outreach (IN [facility]) NIKOLE BHARDWAJ ([id number]) 1970 F Date Time Provider Department 04/24/22 ISRAEL RANDOLPH During your visit today, we recorded the following information about you: Allergies As of Date: 04/24/2022 Noted Allergy Reaction NAPROXEN 03/07/2016 10 - Anaphylaxis 11 - Vomiting Date Reviewed: 12/19/2021 Reviewed by: Leidy Aguilar LPN - Fully Assessed Visit Diagnosis:Encounter for screening mammogram for breast cancer [Z12.31] Order(s):[facility] SCREENING [[id number]] Order #: [id number] FUTURE Prescriptions as of 04/29/2022 - albuterol HFA (VENTOLIN HFA) 90 mcg/actuation inhaler Inhale 2 Puffs as instructed every 4 hours as needed for wheezing/shortness of breath. - metoprolol tartrate, short acting, (LOPRESSOR) 50 mg tablet Take 1 tablet by mouth twice daily. - lisinopril (ZESTRIL, PRINIVIL) 20 mg tablet Take 1 tablet by mouth once daily. - hydroCHLOROthiazide (HYDRODIURIL, ESIDRIX) 50 mg tablet Take 1 tablet by mouth once daily. - mv,calcium,min/iron/folic/vitK (ONE-A-DAY WOMEN'S COMPLETE ORAL) Take by mouth. - aspirin, enteric coated (ASPIRIN, ENTERIC COATED) 81 mg EC tablet Take 81 mg by mouth once daily. - ibuprofen (MOTRIN) 600 mg tablet Take 1 tablet by mouth every 6 hours as needed. - buprenorphine-naloxone (SUBOXONE) 8-2 mg film Dissolve 2 Film under the tongue twice daily. Problem List As Of Date 04/24/2022 Noted Resolved Tobacco use [Z72.0] Heroin addiction (HCC) [F11.20] Morbid obesity (HCC) [E66.01] Arthritis of knee [M17.10] 10/16/2016 Plantar fasciitis [M72.2] 10/16/2016 Chronic insomnia [F51.04] 05/26/2018 Encounter Status:Closed by BRENT LOPEZ on 04/29/22 [facility] 04-01-2022 Miscellaneous Notes Patient has been identified by name and date of : Yes Requested Prescriptions Pending Prescriptions Disp Refills albuterol HFA (VENTOLIN HFA) 90 mcg/actuation inhaler 18 g 1 Sig: Inhale 2 Puffs as instructed every 4 hours as needed for wheezing/shortness of breath. RX INSTRUCTIONS: Patient aware RX will be sent to pharmacy. No need to notify patient. Aureliano Rodrigues Pss documented in this encounter [facility] 03-19-2022 Miscellaneous Notes Pharmacy verified in [facility] Patient has been identified by name and date of : Yes Patient aware RX will be sent to pharmacy. No need to notify patient. Patient phones for refill(s): Requested Prescriptions Pending Prescriptions Disp Refills metoprolol tartrate, short acting, (LOPRESSOR) 50 mg tablet 180 tablet 1 Sig: Take 1 tablet by mouth twice daily. Date of last office visit : 12/19/2021 Date of next office visit : Visit date not found Last 2 Encounter Wt Readings: Date: Wt: 12/04/2021 152.9 kg (337 lb) 08/03/2021 150.3 kg (331 lb 6.4 oz) Please advise. Tania Andino Pss documented in this encounter [facility] 03-13-2022 Miscellaneous Notes ROBERT 12/19/21 No appointment scheduled Please advise. Thank you. RONNA Glynn Patient has been identified by name and date of : Yes Last office visit in this department: Visit date not found RX INSTRUCTIONS: Patient aware RX will be sent to pharmacy. No need to notify patient. Patient phones requesting refills as follows: Patient declined to r/s cancelled follow ups. Requested Prescriptions Pending Prescriptions Disp Refills albuterol HFA (VENTOLIN HFA) 90 mcg/actuation inhaler 18 g 1 Sig: Inhale 2 Puffs as instructed every 4 hours as needed for wheezing/shortness of breath. Please review and advise. Jackelin Webber documented in this encounter [facility] 01-23-2022 Miscellaneous Notes Call to pt to review below instructions. LVM on identified box with below information. You are scheduled for a stress test on 01/28/22. Please follow these instructions *NOTHING BY MOUTH 4 HOURS prior to this test. (you may have sips of water) *NO CAFFEINE FOR 24 HOURS PRIOR TO TESTING (including TEA even decaf, COFFEE- even decaf, CHOCOLATE, YOLIS- even decaf) *Do NOT take MEDICATIONS CONTAINING CAFFEINE/XANTHINE for 24 HOURS prior to testing: Theophylline, Trental, Excedrin, Anacin, Goody Powders, No Doz, Vivarin, Midol, Diurex, Fiorinal, Fioricet, Esgic (butalbital) *Do NOT take Calcium Channel Blockers 24 HOURS prior to test: *Do NOT take Beta blockers 24 HOURS prior to test UNLESS your doctor tells you otherwise: Bisoprolol (Zebeta, ZIAC), Metoprolol (Lopressor, Toprol, Lopressor HCT), Nadolol ( Corgard, Corizide), Nebivolol (Bystolic), Pindolol (Visken), Propranolol (Inderal, Inderide), Carvedilol (Coreg, Coreg CR), Labetalol (Trandate) Atenolol (Tenormin, Tenoretic) Acebutolol (Sectral). Medications on your list you should hold for 24 HOURS: Metoprolol *Do NOT use the following medications 48 HOURS prior to this test: Viagra(Sildenafil citrate), Cialis(Tadalafil), Vardenafil (Levitra, Stanyx), Avanfil (Stendra). *Do not take any of these meds prior to test unless provider directs you otherwise; Nitroglycerine (ex:Deponit, Nitrostat) Isosorbide (ex:Isordil, Sorbitrate,Imdur,Ismo). *All other medications may be taken as you normally would. *Guidelines for Diabetics: If you take insulin to control your blood sugar, ask you physician what amount you should take the day of the test. If you take pills to control blood sugar, on the day of the test, do NOT take them until AFTER the test. *FAILURE TO FOLLOW THESE INSTRUCTIONS WILL RESULT IN HAVING TO RESCHEDULE THE TEST. *Please wear comfortable clothes with a short-sleeved shirt and comfortable walking shoes. *If you use an inhaler, bring it along with you just in case Please check in on the first floor at Radiology: [address]; [place] [address] * If you need to cancel or reschedule this test or have any questions regarding this test, please call [phone]. documented in this encounter [facility] 01-14-2022 Miscellaneous Notes Letter mailed to home of results. Carlene Fajardo MA 2nd attempt at trying to reach patient. Message left to call back for update. Leidy Aguilar LPN Patient telephoned. Message left to call back for update. Leidy Aguilra LPN Please call patient and let her know her heart monitoring showed some incidents of fast heart rate- some which correlated with symptoms. Keep follow-up with cardiology as scheduled. Gay Crisostomo APRN.TRISTA documented in this encounter [facility] 12-19-2021 Note HNO ID: [id number] Author: Gay Crisostomo APRN.TRISTA Service: ? Author Type: Nurse Practitioner Type: Progress Notes Filed: 12/19/2021 6:29 PM Note Text: 12/19/2021 Patient presents with: Blood Pressure: Follow up SUBJECTIVE: This is a 51 year old that is here today for Above Complaints. Started increased HCTZ ordered at last appointment. Tolerating without side effects. Here to have blood pressure rechecked. Has ZIO patch here today to send back. Completed wearing it yesterday. Has not made appointment to see cardiology do stress testing or pulmonary function testing. No more incidents of passing out. Lost her albuterol inhaler prescribed at last appointment. Notes improved SOB with use. PAST MEDICAL HISTORY Diagnosis Date Heroin addiction (HCC) in remission since 08/[address] Gan Marijuana use Morbid obesity (HCC) Tobacco use ALLERGIES Naproxen MEDICATIONS Current Outpatient Medications Medication Sig metoprolol tartrate, short acting, (LOPRESSOR) 50 mg tablet Take 1 tablet by mouth twice daily. albuterol HFA (VENTOLIN HFA) 90 mcg/actuation inhaler Inhale 2 Puffs as instructed every 4 hours as needed for wheezing/shortness of breath. hydroCHLOROthiazide (HYDRODIURIL, ESIDRIX) 50 mg tablet Take 1 tablet by mouth once daily. mv,calcium,min/iron/folic/vitK (ONE-A-DAY WOMEN'S COMPLETE ORAL) Take by mouth. aspirin, enteric coated (ASPIRIN, ENTERIC COATED) 81 mg EC tablet Take 81 mg by mouth once daily. FLUoxetine (PROZAC) 20 mg capsule Take 1 capsule by mouth once daily. (Patient not taking: Reported on 05/31/2020 ) ibuprofen (MOTRIN) 600 mg tablet Take 1 tablet by mouth every 6 hours as needed. buprenorphine-naloxone (SUBOXONE) 8-2 mg film Dissolve 2 Film under the tongue twice daily. No current facility-administered medications for this visit. Medications and allergies reviewed by this provider. SOCIAL HISTORY Social History Tobacco Use Smoking status: Every Day Packs/day: 1.00 Years: 30.00 Pack years: 30.00 Types: Cigarettes Smokeless tobacco: Never Substance Use Topics Alcohol use: Yes Alcohol/week: 17.5 standard drinks Types: 7 Cans of Beer (12oz) per week Drug use: Yes Frequency: 7.0 times per week Types: Marijuana REVIEW OF SYSTEMS All other reviewed and negative other than HPI. OBJECTIVE: BP 148/87 Pulse 70 Resp 16 LMP 05/15/2018 SpO2 91% . Vital signs reviewed by this provider. APPEARANCE Well appearing, alert, in no acute distress, well-hydrated, well nourished. HEART RRR with normal S1 and S2, no murmurs, no gallops, no JVD appreciated LUNG clear to auscultation. No wheezes, rhonchi, or rales EXTREMITIES Extremities normal, No deformities, No skin discoloration, and No edema SKIN Skin color, texture, turgor normal, no suspicious rashes or lesions to exposed skin PAP TESTING Never done HPV TESTING Never done MAMMOGRAM Never done COLORECTAL CANCER SCREENING Never done DEPRESSION ASSESSMENT Never done BP CONTROLLED (<130/80) due on 06/09/2021 INFLUENZA(1) due on 09/20/2022 HEPATITIS B(1 of 3 - 3-dose series) due on 12/19/2022 COVID-19 VACCINE(1) due on 12/19/2022 PNEUMOCOCCAL(2 - PCV) due on 12/19/2022 ANNUAL PCP TEAM CHRONIC DISEASE VISIT due on 12/19/2022 DIABETES SCREEN due on 12/04/2024 LIPID SCREEN due on 08/09/2026 DTAP,TDAP,TD(2 - Td or Tdap) due on 06/09/2030 HEPATITIS C SCREENING Discontinued HIV SCREENING Discontinued ASSESSMENT/PLAN: 1. Hypertension, essential - ICD9: 401.9, ICD10: I10 (primary diagnosis) - suboptimal control - Begin lisinopril (Zestril/Prinivil) - Encouraged dietary sodium restriction/DASH diet - Recommended regular aerobic exercise. - Recommend home blood pressure monitoring, to bring results in on next visit - Discussed need and benefit for weight loss. - Recheck in 2 weeks, sooner should new symptoms or problems arise. - Goal of BP <130/80 - Patient counselled on smoking cessation. - Recommended no refined sugar, low refined starch, healthy oil intake (olive oil), healthy protein (fish) along the lines of the Mediterranean diet. - LISINOPRIL 20 MG TABLET - BASIC METABOLIC PNL 2. Shortness of breath - ICD9: 786.05, ICD10: R06.02 - scheduled stress test and PFTs - ALBUTEROL SULFATE HFA 90 MCG/ACTUATION AEROSOL INHALER 3. Palpitations - ICD9: 785.1, ICD10: R00.2 - no red flag symptoms or exam findings - red flag symptoms discussed, verbalizes understanding - will send ZIO for analysis - follow-up with cardiology as recommend, to ER with red flag symptoms 4. Chest pain, unspecified type - ICD9: 786.50, ICD10: R07.9 -plan as in #3 5. Fluttering heart - ICD9: 427.42, ICD10: I49.8 - plan as in #3 6. Syncope, unspecified syncope type - ICD9: 780.2, ICD10: R55 - plan as in #3 Gay Podlogar, CLAIMS SPECIALIST.ENGINEERING OFFICER Prescription instructions reviewed with patient as applicable. Patient advised if symptoms do not improve or if sympto (more content not included)... [facility] 12-19-2021 History of Present illness Narrative 12/19/2021 Patient presents with: Blood Pressure: Follow up SUBJECTIVE: This is a 51 year old that is here today for Above Complaints. Started increased HCTZ ordered at last appointment. Tolerating without side effects. Here to have blood pressure rechecked. Has ZIO patch here today to send back. Completed wearing it yesterday. Has not made appointment to see cardiology do stress testing or pulmonary function testing. No more incidents of passing out. Lost her albuterol inhaler prescribed at last appointment. Notes improved SOB with use. PAST MEDICAL HISTORY Diagnosis Date Heroin addiction (HCC) in remission since 08/[address] Gan Marijuana use Morbid obesity (HCC) Tobacco use ALLERGIES Naproxen MEDICATIONS Current Outpatient Medications Medication Sig metoprolol tartrate, short acting, (LOPRESSOR) 50 mg tablet Take 1 tablet by mouth twice daily. albuterol HFA (VENTOLIN HFA) 90 mcg/actuation inhaler Inhale 2 Puffs as instructed every 4 hours as needed for wheezing/shortness of breath. hydroCHLOROthiazide (HYDRODIURIL, ESIDRIX) 50 mg tablet Take 1 tablet by mouth once daily. mv,calcium,min/iron/folic/vitK (ONE-A-DAY WOMEN'S COMPLETE ORAL) Take by mouth. aspirin, enteric coated (ASPIRIN, ENTERIC COATED) 81 mg EC tablet Take 81 mg by mouth once daily. FLUoxetine (PROZAC) 20 mg capsule Take 1 capsule by mouth once daily. (Patient not taking: Reported on 05/31/2020 ) ibuprofen (MOTRIN) 600 mg tablet Take 1 tablet by mouth every 6 hours as needed. buprenorphine-naloxone (SUBOXONE) 8-2 mg film Dissolve 2 Film under the tongue twice daily. No current facility-administered medications for this visit. Medications and allergies reviewed by this provider. SOCIAL HISTORY Social History Tobacco Use Smoking status: Every Day Packs/day: 1.00 Years: 30.00 Pack years: 30.00 Types: Cigarettes Smokeless tobacco: Never Substance Use Topics Alcohol use: Yes Alcohol/week: 17.5 standard drinks Types: 7 Cans of Beer (12oz) per week Drug use: Yes Frequency: 7.0 times per week Types: Marijuana REVIEW OF SYSTEMS All other reviewed and negative other than HPI. OBJECTIVE: BP 148/87 Pulse 70 Resp 16 LMP 05/15/2018 SpO2 91% . Vital signs reviewed by this provider. APPEARANCE Well appearing, alert, in no acute distress, well-hydrated, well nourished. HEART RRR with normal S1 and S2, no murmurs, no gallops, no JVD appreciated LUNG clear to auscultation. No wheezes, rhonchi, or rales EXTREMITIES Extremities normal, No deformities, No skin discoloration, and No edema SKIN Skin color, texture, turgor normal, no suspicious rashes or lesions to exposed skin PAP TESTING Never done HPV TESTING Never done MAMMOGRAM Never done COLORECTAL CANCER SCREENING Never done DEPRESSION ASSESSMENT Never done BP CONTROLLED (<130/80) due on 06/09/2021 INFLUENZA(1) due on 09/20/2022 HEPATITIS B(1 of 3 - 3-dose series) due on 12/19/2022 COVID-19 VACCINE(1) due on 12/19/2022 PNEUMOCOCCAL(2 - PCV) due on 12/19/2022 ANNUAL PCP TEAM CHRONIC DISEASE VISIT due on 12/19/2022 DIABETES SCREEN due on 12/04/2024 LIPID SCREEN due on 08/09/2026 DTAP,TDAP,TD(2 - Td or Tdap) due on 06/09/2030 HEPATITIS C SCREENING Discontinued HIV SCREENING Discontinued ASSESSMENT/PLAN: 1. Hypertension, essential - ICD9: 401.9, ICD10: I10 (primary diagnosis) - suboptimal control - Begin lisinopril (Zestril/Prinivil) - Encouraged dietary sodium restriction/DASH diet - Recommended regular aerobic exercise. - Recommend home blood pressure monitoring, to bring results in on next visit - Discussed need and benefit for weight loss. - Recheck in 2 weeks, sooner should new symptoms or problems arise. - Goal of BP <130/80 - Patient counselled on smoking cessation. - Recommended no refined sugar, low refined starch, healthy oil intake (olive oil), healthy protein (fish) along the lines of the Mediterranean diet. - LISINOPRIL 20 MG TABLET - BASIC METABOLIC PNL 2. Shortness of breath - ICD9: 786.05, ICD10: R06.02 - scheduled stress test and PFTs - ALBUTEROL SULFATE HFA 90 MCG/ACTUATION AEROSOL INHALER 3. Palpitations - ICD9: 785.1, ICD10: R00.2 - no red flag symptoms or exam findings - red flag symptoms discussed, verbalizes understanding - will send ZIO for analysis - follow-up with cardiology as recommend, to ER with red flag symptoms 4. Chest pain, unspecified type - ICD9: 786.50, ICD10: R07.9 -plan as in #3 5. Fluttering heart - ICD9: 427.42, ICD10: I49.8 - plan as in #3 6. Syncope, unspecified syncope type - ICD9: 780.2, ICD10: R55 - plan as in #3 Gay Crisostomo APRN.TRISTA Prescription instructions reviewed with patient as applicable. Patient advised if symptoms do not improve or if symptoms worsen sooner, to contact their primary care physician. Potential red flag symptoms discussed with the patient. Reviewed appropriate action plan to take if red flag symptoms occur. Patient agreeable to treatment plan. I spent a total of 25 minutes on the date of the service which included preparing to see the patient, [id number] patient care, completing clinical documentation, obtaining and/or reviewing separately obtained history, performing a medically appropriate examination, counseling and educating the patient/family/caregiver, and ordering medications, tests, or procedures. documented in this encounter [facility] 12-04-2021 Note HNO ID: [id number] Author: RT Juan José(R) Service: Radiology Author Type: Technologist Type: Progress Notes Filed: 12/04/2021 3:25 PM Note Text: Radiology Service Progress Note PATIENT NAME: Nikole Bhardwaj DATE OF SERVICE: December 04, 2021 TIME: 3:18 PM PATIENT IDENTITY VERIFICATION COMPLETED USING TWO (2) IDENTIFIERS: Name and Date of confirmed by patient verbally. FALL SCREENING: Has the patient had 2 falls in the last year or 1 fall with injury or currently using an Ambulatory Assistive Device (Walker, Cane, Wheelchair, Crutches, etc.)? No PATIENT GENDER DATA: Female. status: : No status: NO. PATIENT RELEVANT IMPLANT DATA REVIEWED: Yes RADIOLOGY DEPARTMENT: General X-ray: Exam(s) Completed: Chest X-Ray PERIPHERAL IV DATA: Not applicable SIGNED BY: RT Juan José(R) December 04, 2021 3:18 PM [facility] 12-04-2021 Note HNO ID: [id number] Author: Leidy Aguilar LPN Service: ? Author Type: LICENSED NURSE Type: Progress Notes Filed: 12/04/2021 3:26 PM Note Text: EVENT MONITOR DISPOSABLE PATCH INSTRUCTIONS Patient Name: Nikole Bhardwaj Clinic Number: [id number] Skin prepped and cleansed with alcohol Patch secured to prepped area Monitor Activated Serial #: [id number] Patient Instructed: Prescribed order timeframe Bathing guidelines Usage of event button and diary documentation Return of monitor at the end of prescribed order Call with problems [phone] or [phone]. [phone] Patient expresses a good understanding of instructions Leidy Aguilar LPN [facility] 12-04-2021 Miscellaneous Notes Pt called and is notified of providers results. Pt voices understanding. Aurelia Worthy RN Please call patient and let her know her xray was normal. Gay Crisostomo APRN.TRISTA documented in this encounter [facility] 12-04-2021 Note HNO ID: [id number] Author: Gay Crisostomo APRN.CNP Service: ? Author Type: Nurse Practitioner Type: Progress Notes Filed: 12/04/2021 3:26 PM Note Text: Tsh 12/04/2021 Patient presents with: Breathing Problem: SOB since having HTN SUBJECTIVE: This is a 51 year old that is here today for Above Complaints.. Reports SOB with exertion since being diagnosed with HTN. Admits to smoking about a pack a day of cigarettes and occasionally has three puffs of marijuana. Reports my heart always gives me problems, like fluttering and pressure. Reports chest pain and fluttering can be with or without activity. Has accompanying diaphoresis and nausea with chest pain. Reports wheezing at times. Uses dad's albuterol inhaler which helps with SOB and wheezing. Denies cough, orthopnea, or dyspnea. Admits to swelling of lower legs. Also reports she passed out at work the other day. Reports was in the bathroom and became sweaty and nauseated and woke up on the floor. Incident was unwitnessed and patient reports she was able to go back to work but she still felt lightheaded. PAST MEDICAL HISTORY Diagnosis Date Heroin addiction (HCC) in remission since 08/[address] Gan Marijuana use Morbid obesity (HCC) Tobacco use ALLERGIES Naproxen MEDICATIONS Current Outpatient Medications Medication Sig metoprolol tartrate, short acting, (LOPRESSOR) 50 mg tablet Take 1 tablet by mouth twice daily. hydroCHLOROthiazide (HYDRODIURIL, ESIDRIX) 25 mg tablet Take 1 tablet by mouth once daily. aspirin, enteric coated (ASPIRIN, ENTERIC COATED) 81 mg EC tablet Take 81 mg by mouth once daily. buprenorphine-naloxone (SUBOXONE) 8-2 mg film Dissolve 2 Film under the tongue twice daily. mv,calcium,min/iron/folic/vitK (ONE-A-DAY WOMEN'S COMPLETE ORAL) Take by mouth. FLUoxetine (PROZAC) 20 mg capsule Take 1 capsule by mouth once daily. (Patient not taking: Reported on 05/31/2020 ) ibuprofen (MOTRIN) 600 mg tablet Take 1 tablet by mouth every 6 hours as needed. No current facility-administered medications for this visit. Medications and allergies reviewed by this provider. SOCIAL HISTORY Social History Tobacco Use Smoking status: Every Day Packs/day: 1.00 Years: 30.00 Pack years: 30.00 Types: Cigarettes Smokeless tobacco: Never Substance Use Topics Alcohol use: Yes Alcohol/week: 17.5 standard drinks Types: 7 Cans of Beer (12oz) per week Drug use: Yes Frequency: 7.0 times per week Types: Marijuana REVIEW OF SYSTEMS All other reviewed and negative other than HPI. OBJECTIVE: BP 139/82 Pulse 63 Resp 22 Wt (!) 152.9 kg (337 lb) LMP 05/15/2018 SpO2 92% BMI 52.78 kg/m? . Vital signs reviewed by this provider. APPEARANCE Well appearing, alert, in no acute distress, well-hydrated, well nourished. and Morbidly obese EYES PERRLA, conjunctiva and sclera normal. NECK Supple, no adenopathy; thyroid symmetric, normal size, no bruits HEART RRR with normal S1 and S2, no murmurs, no gallops, no JVD appreciated LUNG clear to auscultation EXTREMITIES Extremities normal, No deformities, No skin discoloration. Trace edema BLE NEURO Awake, alert and oriented x 3, Cranial nerves II-XII grossly intact, Reflexes symmetrical, Normal gait, No involuntary motions., and negative findings: speech normal, mental status intact, Romberg negative, muscle tone normal, muscle strength normal, rapid alternating movements normal, finger to nose normal, reflexes normal and symmetric, plantar response downgoing bilaterally SKIN Skin color, texture, turgor normal, no suspicious rashes or lesions to exposed skin HEPATITIS B(1 of 3 - 3-dose series) Never done COVID-19 VACCINE(1) Never done PAP TESTING Never done HPV TESTING Never done MAMMOGRAM Never done PNEUMOCOCCAL(2 - PCV) due on 03/07/2017 COLORECTAL CANCER SCREENING Never done BP CONTROLLED (<130/80) due on 06/09/2021 DEPRESSION SCREENING due on 06/09/2021 INFLUENZA(1) due on 11/22/2021 ANNUAL PCP TEAM CHRONIC DISEASE VISIT due on 12/04/2022 DIABETES SCREEN due on 08/21/2024 LIPID SCREEN due on 08/09/2026 DTAP,TDAP,TD(2 - Td or Tdap) due on 06/09/2030 HEPATITIS C SCREENING Discontinued HIV SCREENING Discontinued ASSESSMENT/PLAN: 1. Chest pain, unspecified type - ICD9: 786.50, ICD10: R07.9 (primary diagnosis) Chest pain of unclear etiology, patient with significant risk factor(s) of Hypertension, Hyperlipidemia, and smoking - no red flag symptoms or exam findings - red flag symptoms discussed, verbalizes understanding - Electrocardiogram: An ECG today showed normal sinus rhythm at 63 BPM, septal infarct age undetermined VT interval 138 ms, normal QRS, normal ST-T, QT 412 ms - Lab evaluation CMP, TSH, and magnesium - Chest X-ray today. - Stress testing- see orders - Referral to Cardiology - EXERCISE STRESS ECG (WITHOUT IMAGING) - OUTSIDE VENDOR CARDIAC OUTPATIENT EXTENDED RHYTHM RECORDING (more content not included)... [facility] 12-04-2021 Note HNO ID: [id number] Author: Tenisha Jay MD Service: Interventional Cardiology Author Type: Physician Type: Procedures Filed: 12/31/2021 3:59 PM Note Text: Patient Name: Nikole Bhardwaj : 1970 Ordering Provider: Gay Crisostomo Indication: R07.9 Chest pain, unspecified Type of Monitor: Extended Monitoring-Zio Patch Enrollment Dates: 12/04/2021-12/18/2021 [facility] 12-04-2021 History of Present illness Narrative EVENT MONITOR DISPOSABLE PATCH INSTRUCTIONS Patient Name: Nikole Bhardwaj Clinic Number: [id number] Skin prepped and cleansed with alcohol Patch secured to prepped area Monitor Activated Serial #: [id number] Patient Instructed: Prescribed order timeframe Bathing guidelines Usage of event button and diary documentation Return of monitor at the end of prescribed order Call with problems [phone] or [phone]. [phone] Patient expresses a good understanding of instructions Leidy Aguilar LPN Tsh 12/04/2021 Patient presents with: Breathing Problem: SOB since having HTN SUBJECTIVE: This is a 51 year old that is here today for Above Complaints.. Reports SOB with exertion since being diagnosed with HTN. Admits to smoking about a pack a day of cigarettes and occasionally has three puffs of marijuana. Reports my heart always gives me problems, like fluttering and pressure. Reports chest pain and fluttering can be with or without activity. Has accompanying diaphoresis and nausea with chest pain. Reports wheezing at times. Uses dad's albuterol inhaler which helps with SOB and wheezing. Denies cough, orthopnea, or dyspnea. Admits to swelling of lower legs. Also reports she passed out at work the other day. Reports was in the bathroom and became sweaty and nauseated and woke up on the floor. Incident was unwitnessed and patient reports she was able to go back to work but she still felt lightheaded. PAST MEDICAL HISTORY Diagnosis Date Heroin addiction (HCC) in remission since 08/[address] Gan Marijuana use Morbid obesity (HCC) Tobacco use ALLERGIES Naproxen MEDICATIONS Current Outpatient Medications Medication Sig metoprolol tartrate, short acting, (LOPRESSOR) 50 mg tablet Take 1 tablet by mouth twice daily. hydroCHLOROthiazide (HYDRODIURIL, ESIDRIX) 25 mg tablet Take 1 tablet by mouth once daily. aspirin, enteric coated (ASPIRIN, ENTERIC COATED) 81 mg EC tablet Take 81 mg by mouth once daily. buprenorphine-naloxone (SUBOXONE) 8-2 mg film Dissolve 2 Film under the tongue twice daily. mv,calcium,min/iron/folic/vitK (ONE-A-DAY WOMEN'S COMPLETE ORAL) Take by mouth. FLUoxetine (PROZAC) 20 mg capsule Take 1 capsule by mouth once daily. (Patient not taking: Reported on 05/31/2020 ) ibuprofen (MOTRIN) 600 mg tablet Take 1 tablet by mouth every 6 hours as needed. No current facility-administered medications for this visit. Medications and allergies reviewed by this provider. SOCIAL HISTORY Social History Tobacco Use Smoking status: Every Day Packs/day: 1.00 Years: 30.00 Pack years: 30.00 Types: Cigarettes Smokeless tobacco: Never Substance Use Topics Alcohol use: Yes Alcohol/week: 17.5 standard drinks Types: 7 Cans of Beer (12oz) per week Drug use: Yes Frequency: 7.0 times per week Types: Marijuana REVIEW OF SYSTEMS All other reviewed and negative other than HPI. OBJECTIVE: BP 139/82 Pulse 63 Resp 22 Wt (!) 152.9 kg (337 lb) LMP 05/15/2018 SpO2 92% BMI 52.78 kg/m . Vital signs reviewed by this provider. APPEARANCE Well appearing, alert, in no acute distress, well-hydrated, well nourished. and Morbidly obese EYES PERRLA, conjunctiva and sclera normal. NECK Supple, no adenopathy; thyroid symmetric, normal size, no bruits HEART RRR with normal S1 and S2, no murmurs, no gallops, no JVD appreciated LUNG clear to auscultation EXTREMITIES Extremities normal, No deformities, No skin discoloration. Trace edema BLE NEURO Awake, alert and oriented x 3, Cranial nerves II-XII grossly intact, Reflexes symmetrical, Normal gait, No involuntary motions., and negative findings: speech normal, mental status intact, Romberg negative, muscle tone normal, muscle strength normal, rapid alternating movements normal, finger to nose normal, reflexes normal and symmetric, plantar response downgoing bilaterally SKIN Skin color, texture, turgor normal, no suspicious rashes or lesions to exposed skin HEPATITIS B(1 of 3 - 3-dose series) Never done COVID-19 VACCINE(1) Never done PAP TESTING Never done HPV TESTING Never done MAMMOGRAM Never done PNEUMOCOCCAL(2 - PCV) due on 03/07/2017 COLORECTAL CANCER SCREENING Never done BP CONTROLLED (<130/80) due on 06/09/2021 DEPRESSION SCREENING due on 06/09/2021 INFLUENZA(1) due on 11/22/2021 ANNUAL PCP TEAM CHRONIC DISEASE VISIT due on 12/04/2022 DIABETES SCREEN due on 08/21/2024 LIPID SCREEN due on 08/09/2026 DTAP,TDAP,TD(2 - Td or Tdap) due on 06/09/2030 HEPATITIS C SCREENING Discontinued HIV SCREENING Discontinued ASSESSMENT/PLAN: 1. Chest pain, unspecified type - ICD9: 786.50, ICD10: R07.9 (primary diagnosis) Chest pain of unclear etiology, patient with significant risk factor(s) of Hypertension, Hyperlipidemia, and smoking - no red flag symptoms or exam findings - red flag symptoms discussed, verbalizes understanding - Electrocardiogram: An ECG today showed normal sinus rhythm at 63 BPM, septal infarct age undetermined VT interval 138 ms, normal QRS, normal ST-T, QT 412 ms - Lab evaluation CMP, TSH, and magnesium - Chest X-ray today. - Stress testing- see orders - Referral to Cardiology - EXERCISE STRESS ECG (WITHOUT IMAGING) - OUTSIDE VENDOR CARDIAC OUTPATIENT EXTENDED RHYTHM RECORDING (WITHOUT TELEMETRY) - XR CHEST 2V FRONTAL/LAT - COMP METABOLIC PANEL - MAGNESIUM BLD - ECG COMPLETE - CONSULT TO CARDIOLOGY, to ER with red flag symptoms 2. Syncope and collapse - ICD9: 780.2, ICD10: R55 - no red flag symptoms or exam findings - red flag symptoms discussed, verbalizes understanding - EXERCISE STRESS ECG (WITHOUT IMAGING) - OUTSIDE VENDOR CARDIAC OUTPATIENT EXTENDED RHYTHM RECORDING (WITHOUT TELEMETRY) - ECG COMPLETE - CONSULT TO CARDIOLOGY, to ER with red flag symptoms 3. Shortness of breath - ICD9: 786.05, ICD10: R06.02 - consider cardiac vs pulm, plan as in #1 and #2 - EXERCISE STRESS ECG (WITHOUT IMAGING) - SPIROMETRY - BASELINE AND POST DILATOR - XR CHEST 2V FRONTAL/LAT - ECG COMPLETE - ALBUTEROL SULFATE HFA 90 MCG/ACTUATION AEROSOL INHALER - complete testing for possible COPD and follow-up with cardiology - smoking strongly encouraged 4. Fluttering heart - ICD9: 427.42, ICD10: I49.8 - plan as in #1 and #2 - OUTSIDE VENDOR CARDIAC OUTPATIENT EXTENDED RHYTHM RECORDING (WITHOUT TELEMETRY) - ECG COMPLETE - TSH BLD - CONSULT TO CARDIOLOGY 5. Hypertension, essential - ICD9: 401.9, ICD10: I10 - suboptimal control - Increase HCTZ - Encouraged dietary sodium restriction/DASH diet - Recommended regular aerobic exercise. - Recommend home blood pressure monitoring, to bring results in on next visit - Discussed need and benefit for weight loss. - Recheck in 2 weeks, sooner should new symptoms or problems arise. - Goal of BP <130/80 - Patient counselled on smoking cessation. - Recommended no refined sugar, low refined starch, healthy oil intake (olive oil), healthy protein (fish) along the lines of the Mediterranean diet. - HYDROCHLOROTHIAZIDE 50 MG TABLET 6. Tobacco use - ICD9: 305.1, ICD10: Z72.0 - Cessation encouraged. - Physiologic and physical aspects of tobacco addiction as well as strategies for quitting were discussed. - Counseling was given focusing on the harmful effects of this addiction especially given the patient's medical condition(s) which will be worsened because of the chemicals in tobacco. - Counseling was given 3-4 minutes. 7. Marijuana use - ICD9: 305.20, ICD10: F12.90 - discussed risks of continue use, verbalizes understanding - recommend complete cessation Gay Crisostomo APRN.CNP Prescription instructions reviewed with patient as applicable. Patient advised if symptoms do not improve or if symptoms worsen sooner, to contact their primary care physician. Potential red flag symptoms discussed with the patient. Reviewed appropriate action plan to take if red flag symptoms occur. Patient agreeable to treatment plan. I spent a total of 45 minutes on the date of the service which included preparing to see the patient, [id number] patient care, completing clinical documentation, obtaining and/or reviewing separately obtained history, performing a medically appropriate examination, counseling and educating the patient/family/caregiver, ordering medications, tests, or procedures, and independently interpreting results (not separately reported). documented in this encounter [facility] 09-03-2021 Miscellaneous Notes Letter mailed to pt notifying her we've attempted to reach her by phone x 2 with messages left regarding labs. Asked pt to call our office. Hanny Sánchez Ma Left additional message for patient to contact office. Please note and detailed instructions below. Consuelo Guan MA Patient telephoned. Message left to call back for update. Leidy Aguilar LPN Please call patient and let her know I spoke with endocrinology and they have recommended additional blood work regarding her cortisol levels. They also recommend she make appointment with them. 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 She will need to take the pill between 11 PM and midnight and then the NEXT MORNING BEFORE 9 AM ( she can not come late for labs) and have her blood work completed. Again I stress these labs need to be drawn before 9 AM the morning after she takes the pill or the results will not be accurate. Please assist in scheduling consult and lab appointment. Gay Brown APRN.TRISTA documented in this encounter [facility] 08-27-2021 Miscellaneous Notes Gay Brown APRN.TRISTA Pt called and is notified of providers results and instructions. Pt voices understanding. She states she stopped taking the Lisinopril 2 days after taking it because it made her feel dizzy, and she couldn't take it and work. She is going to increase the Metoprolol. Pt will call back in to schedule her labs and BP check. Aurelia Worthy RN Please call patient and let her know I have reached out to endocrinology regarding her recent labs as some where abnormal. It appears she had blood work completed after 10 AM which could affect the findings. Her potassium remains slightly elevated. I recommend she stop the lisinopril and increase her metoprolol to two pills twice a day and recheck her potassium and blood pressure in 2 weeks-please assist in scheduling appointments. Thanks, Gay Crisostomo APRN.TRISTA documented in this encounter [facility] 08-24-2021 History of Present illness Narrative E-Consult Response In response to your eConsult request to Endocrinology for Nikole Bhardwaj regarding: labwork for adrenal adenoma [place] History of present illness provided through requesting provider documentation and current treatment plan was reviewed. Based on the patient history provided, my impression is as follows: She had AM blood work Renin is elevated, but may be have been volume depleted. Noted that she is on HCTZ. But no evidence hyperaldosteronism. Her ACTH is low which is interesting. This might be suggestive of hypercortisolism from the adrenal adenomas. Would suggest a dex suppression. The catecholamines were done. If she remains on prozac, the elevations seen are likely secondary to that. Would recommend pursuing 1 mg dexamethasone suppression testing. Prescribe 1 mg dexamethasone. She needs to take between 11 PM and midnight. Then get ACTH, cortisol levels the next morning before 9 AM. Also please obtain metanephrines. She will need to see endocrinology as well. Results for NIKOLE BHARDWAJ ( ) as of 08/24/2021 14:56 Ref. Range 08/21/2021 10:14 Hemoglobin A1C Latest Ref Range: 4.3 - 5.6 % 5.6 Estimated Average Glucose Latest Units: mg/dL 114 ACTH Latest Ref Range: 7.2 - 63.3 pg/mL 6.3 (L) Cortisol Latest Ref Range: 4.8 - 19.5 ug/dL 5.2 Aldosterone Latest Ref Range: 0.0-<35.4 ng/dL 11.5 Direct Renin Latest Ref Range: 3.6 - 81.6 pg/mL 394.5 (H) Norepinephrine Latest Ref Range: 80 - 520 pg/mL 558 (H) Dopamine Latest Ref Range: 0 - 20 pg/mL 29 (H) Epinephrine (PLCAT) Latest Ref Range: 10 - 200 pg/mL 23 Catecholamine Interpretation Plasma Unknown See Note She will be seen in endocrinology. Regina Worrell MD August 24, 2021 documented in this encounter [facility] 08-14-2021 Miscellaneous Notes Patient telephoned. Message below given. Voices understanding. 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 Appointment scheduled for 08/21/21 at 1040am with [facility]. Lab appointment scheduled for same day. Leidy Aguilar LPN Patient telephoned. Message left to call back for update. Leidy Aguilar LPN Please call patient and let her know her CT showed lipid rich nodules which are benign. I did reach out to endocrinology to discuss any additional testing and they recommended some additional blood work. Although not cancerous adrenal nodules can cause other problems. I have placed orders for. She needs to complete this early in morning (8 AM). Please assist in scheduling. Thanks, Gay Crisostomo APRN.TRISTA documented in this encounter [facility] 08-12-2021 History of Present illness Narrative Thank you for requesting an Endocrinology E-Consult for your 50 year old female patient, Nikole Bhardwaj for evaluation/treatment of Adrenal nodules. Your clinical question: Patient with recent CT of adrenals. Findings are bilateral hypodense adrenal nodules consistent with lipid rich adenoma. Largest nodule measures 3.9 cm x 2.5 cm. Is there any further follow-up for this size nodule? Comments and recommendations: Patient has associated hypertension and class 3 obesity. Glucose level on August 09, 2021 was 117 mg/dl and was done fasting (most likely, same time as fasting lipid profile). If it was a fasting glucose, it is compatible with pre-diabetes. Patient has recent associated renal insufficiency, unclear if acute or chronic. * Lipid rich adenoma are benign. * Considering the size of the largest left nodule, 3.9 cm, one may consider a follow up on nodule size (though not concerned about the risk for malignancy). However, insurance coverage might be lacking. * Evaluation of adrenal functions should be performed. If normal, yearly evaluation for 5 years is recommended (assuming stability). * The first set of labs should include early AM (8:00 AM) blood draw for: ACTH Cortisol Plasma metanephrines Aldosterone Renin Simultaneous renal function panel. * At a later step, consider obtaining 1 mg dexamethasone suppression test (1 mg of dexamethasone at bedtime followed by 7:00- 8:00 AM blood draw cortisol and dexamethasone level) A cortisol level less than 1.8 ug/dl is considered appropriate A, next available, appointment should be scheduled by requesting provider Time: 12 minutes. Please don't hesitate to contact us if you have further questions. Sincerely, Ashley Guallpa MD, YOLY documented in this encounter [facility] 08-09-2021 History of Present illness Narrative Radiology Service Progress Note PATIENT NAME: Nikole Bhardwaj DATE OF SERVICE: August 09, 2021 TIME: 3:59 PM PATIENT IDENTITY VERIFICATION COMPLETED USING TWO (2) IDENTIFIERS: Name and Date of confirmed by patient verbally. FALL SCREENING: Has the patient had 2 falls in the last year or 1 fall with injury or currently using an Ambulatory Assistive Device (Walker, Cane, Wheelchair, Crutches, etc.)? No PATIENT GENDER DATA: Female. status: : No status: NO. PATIENT RELEVANT IMPLANT DATA REVIEWED: Yes RADIOLOGY DEPARTMENT: CT; Exam(s) Completed: Abdomen PERIPHERAL IV DATA: Not applicable SIGNED BY: RT Lia(R) August 09, 2021 3:59 PM documented in this encounter [facility] 08-03-2021 History of Present illness Narrative 08/03/2021 Patient presents with: Medication Follow-up SUBJECTIVE: This is a 50 year old that is here today for Above Complaints. Sine last office visit she reports she was in ER for a pulled muscle, otherwise has been in good health without hospitalizations HTN: Patient is compliant with meds Yes Monitors bp at home: No. Denies side effects: Yes. Chest pain: No. Dyspnea: No. Edema: No. Palpitations: Yes. Syncope: No. Headache: No. Dizziness: No. Out of BP medication for the last 3-4 days. Still with palpitations on and off. Did not get message last year about starting metoprolol or following up with cardiology about her ZIO results. Reviewed on hospital in [facility] for her ER visit on 04/21/2021. Appears they had wanted her to stay due to decreased kidney function and abnormal CT showing adrenal nodules, however patient did not want to stay and was supposed to follow-up as outpatient. PAST MEDICAL HISTORY Diagnosis Date Heroin addiction (HCC) in remission since 08/[address] Gan Marijuana use Morbid obesity (HCC) Tobacco use ALLERGIES Naproxen MEDICATIONS Current Outpatient Medications Medication Sig lisinopril (ZESTRIL, PRINIVIL) 20 mg tablet Take 1 tablet by mouth once daily. hydroCHLOROthiazide (HYDRODIURIL, ESIDRIX) 25 mg tablet Take 1 tablet by mouth once daily. metoprolol tartrate, short acting, (LOPRESSOR) 25 mg tablet Take 1 tablet by mouth twice daily. mv,calcium,min/iron/folic/vitK (ONE-A-DAY WOMEN'S COMPLETE ORAL) Take by mouth. aspirin, enteric coated (ASPIRIN, ENTERIC COATED) 81 mg EC tablet Take 81 mg by mouth once daily. cephALEXin (KEFLEX) 500 mg capsule Take 500 mg by mouth four times daily. 4 times per day for 7 days FLUoxetine (PROZAC) 20 mg capsule Take 1 capsule by mouth once daily. (Patient not taking: Reported on 05/31/2020 ) ibuprofen (MOTRIN) 600 mg tablet Take 1 tablet by mouth every 6 hours as needed. Buprenorphine-nalOXone (SUBOXONE) 8-2 mg film Dissolve 2 Film under the tongue twice daily. No current facility-administered medications for this visit. Medications and allergies reviewed by this provider. SOCIAL HISTORY Social History Tobacco Use Smoking status: Current Every Day Smoker Packs/day: 1.00 Years: 30.00 Pack years: 30.00 Types: Cigarettes Smokeless tobacco: Never Used Substance Use Topics Alcohol use: Yes Alcohol/week: 17.5 standard drinks Types: 7 Cans of Beer (12oz) per week Drug use: Yes Frequency: 7.0 times per week Types: Marijuana REVIEW OF SYSTEMS All other reviewed and negative other than HPI. OBJECTIVE: BP 142/76 Pulse 82 Resp 20 Wt (!) 150.3 kg (331 lb 6.4 oz) LMP 05/15/2018 SpO2 92% BMI 51.90 kg/m . Vital signs reviewed by this provider. APPEARANCE Well appearing, alert, in no acute distress, well-hydrated, well nourished. EYES conjunctiva and sclera normal. NECK Supple, no adenopathy; thyroid symmetric, normal size, no bruits HEART RRR with normal S1 and S2, no murmurs, no gallops, no JVD appreciated LUNG clear to auscultation. No wheezes, rhonchi, or rales EXTREMITIES Extremities normal, No deformities, No skin discoloration and No edema SKIN Skin color, texture, turgor normal, no suspicious rashes or lesions to exposed skin COVID-19 VACCINE(1) Never done PAP TESTING Never done HPV TESTING Never done MAMMOGRAM Never done COLORECTAL CANCER SCREENING Never done DIABETES SCREEN due on 05/26/2021 BP CONTROLLED (<130/80) due on 06/09/2021 DEPRESSION SCREENING due on 06/09/2021 INFLUENZA(Season Ended) due on 11/22/2021 ANNUAL PCP TEAM CHRONIC DISEASE VISIT due on 08/03/2022 LIPID SCREEN due on 05/27/2023 DTAP,TDAP,TD(2 - Td or Tdap) due on 06/09/2030 ONE PNEUMOVAX PRIOR TO AGE 65 Completed MENINGOCOCCAL CONJUGATE Aged Out HEPATITIS C SCREENING Discontinued HIV SCREENING Discontinued ASSESSMENT/PLAN: 1. Hypertension, essential - ICD9: 401.9, ICD10: I10 (primary diagnosis) - suboptimal control - Continue current medication(s) - Encouraged dietary sodium restriction/DASH diet - Recommended regular aerobic exercise. - Recommend home blood pressure monitoring, to bring results in on next visit - Discussed need and benefit for weight loss. - Follow up in 1 month for BP recheck. - Goal of BP <130/80 - Patient counselled on smoking cessation. - COMP METABOLIC PANEL - LISINOPRIL 20 MG TABLET - HYDROCHLOROTHIAZIDE 25 MG TABLET 2. Screening for hyperlipidemia - ICD9: V77.91, ICD10: Z13.220 - LIPID PANEL BASIC 3. Disorder of adrenal gland (HCC) - ICD9: 255.9, ICD10: E27.9 - CT ADRENAL WO/W IVCON - IV CONTRAST (RADIOLOGY PROCEDURE) 4. Paroxysmal SVT (supraventricular tachycardia) (HCC) - ICD9: 427.0, ICD10: I47.1 - recommend she follow-up with cardiology as was recommended by PCP - METOPROLOL TARTRATE 25 MG TABLET Gay Crisostomo APRN.CNP Prescription instructions reviewed with patient as applicable. Patient advised if symptoms do not improve or if symptoms worsen sooner, to contact their primary care physician. Potential red flag symptoms discussed with the patient. Reviewed appropriate action plan to take if red flag symptoms occur. Patient agreeable to treatment plan. documented in this encounter [facility] 08-02-2021 Miscellaneous Notes 30 day rx sent. Keep appointment with Gay as scheduled. Patient has been out of her BP pills for 3 days and would like them called in and be notified. She has to work today and will need them before going in. Patient says she had a family emergency and that was why she missed her last appointment. Patient did schedule for Gay tomorrow 08-03 at 1:40. Advised to keep appointment.a Pharmacy verified in [facility] Patient has been identified by name and date of : Yes Patient aware RX will be sent to pharmacy. No need to notify patient. Patient phones for refill(s): Pending Prescriptions Disp Refills LISINOPRIL 20 MG TABLET 30 tablet 0 Sig: Take 1 tablet by mouth once daily. CHAZ: No Date of last office visit : 06/09/2020 Date of next office visit : 08/03/2021 Last 2 Encounter Wt Readings: Date: Wt: 06/09/2020 151 kg (332 lb 12.8 oz) 05/31/2020 156.9 kg (346 lb) Please advise. Tania Andino Pss documented in this encounter [facility] 07-04-2021 Miscellaneous Notes Detailed message left on pt identified vm. Carlene Fajardo Ma Left message for patient to contact office. Please schedule patient for an appointment. Consuelo Guan MA 30 day refill sent to pharmacy. It has been over a year since she was last seen in office. Please call to schedule f/u visit. Patient has been identified by name and date of : Yes Pending Prescriptions Disp Refills HYDROCHLOROTHIAZIDE 25 MG TABLET 90 tablet 1 Sig: Take 1 tablet by mouth once daily. CHAZ: No LISINOPRIL 20 MG TABLET 90 tablet 1 Sig: Take 1 tablet by mouth once daily. CHAZ: No ROBERT-06/09/20 Labs-05/11/20 NOV-none meds filled 07/04/20 ends 12/31/20 RX INSTRUCTIONS: Patient needs medication today. Patient aware RX will be sent to pharmacy. No need to notify patient. Deanne Ruano Pss documented in this encounter [facility] Hypertension, essential Unspecified essential hypertension [facility] Diagnosis Hypertension, essential- Primary Unspecified essential hypertension Screening for hyperlipidemia Screening for lipoid disorders Disorder of adrenal gland (HCC) Unspecified disorder of adrenal glands Paroxysmal SVT (supraventricular tachycardia) (HCC) Paroxysmal supraventricular tachycardia documented in this encounter [facility] note* Diagnosis Disorder of adrenal gland (HCC) Unspecified disorder of adrenal glands documented in this encounter [facility] note* Diagnosis Adrenal adenoma, unspecified laterality- Primary documented in this encounter [facility] note* Diagnosis Bilateral adrenal adenomas- Primary documented in this encounter [facility] note* Diagnosis Adrenal adenoma, unspecified laterality- Primary Elevated glucose Other abnormal glucose documented in this encounter [facility] note* Diagnosis Adrenal adenoma, unspecified laterality documented in this encounter [facility] note* Diagnosis Abnormal finding of blood chemistry- Primary Other abnormal blood chemistry documented in this encounter [facility] note* Diagnosis Abnormal blood findings- Primary Other nonspecific findings on examination of blood Paroxysmal SVT (supraventricular tachycardia) (HCC) Paroxysmal supraventricular tachycardia Hyperkalemia Hyperpotassemia documented in this encounter [facility] note* Diagnosis Chest pain, unspecified type- Primary Syncope and collapse Shortness of breath Fluttering heart Ventricular flutter Hypertension, essential Unspecified essential hypertension Tobacco use Tobacco use disorder Marijuana use Cannabis abuse, unspecified documented in this encounter [facility] note* Diagnosis Hypertension, essential- Primary Unspecified essential hypertension Shortness of breath Palpitations Chest pain, unspecified type Fluttering heart Ventricular flutter Syncope, unspecified syncope type documented in this encounter [facility] note* Diagnosis Shortness of breath documented in this encounter [facility] note* Diagnosis Hypertension, essential Unspecified essential hypertension Shortness of breath documented in this encounter [facility] note* Diagnosis Encounter for screening mammogram for breast cancer documented in this encounter [facility] note* Diagnosis Shortness of breath documented in this encounter [facility] note* Diagnosis Hypertension, essential Unspecified essential hypertension Shortness of breath documented in this encounter [facility] note* Diagnosis Shortness of breath documented in this encounter [facility] note* Diagnosis Other emphysema (HCC)- Primary Other emphysema Primary hypertension Unspecified essential hypertension Hypoxemia documented in this encounter [facility] note* Diagnosis Other emphysema (HCC)- Primary Other emphysema Hypoxia Hypoxemia Shortness of breath documented in this encounter [facility] for referral (narrative)* Diagnostic Procedure Only (Routine) - Pending Review Specialty Diagnoses / Procedures Referred By Don hammer Referred To Contact [facility] Diagnoses Encounter for screening mammogram for breast cancer Procedures JAIME SCREENING SCREENING MAMMOGRAPHY BI 2-VIEW BREAST INC CAD Israel Randolph MD [address] [place] [address] [facility] [address] [place] [address] Referral ID Status Reason Start Date Expiration Date Visits Requested Visits Authorized [id number] Pending Review Auto-Generat ed Referral 04/24/2022 05/24/[address] [facility] for referral (narrative)* Consultation (Routine) - Pending Review Specialty Diagnoses / Procedures Referred By Don hammer Referred To Contact Pulmonology Diagnoses Other emphysema (HCC) Shortness of breath Hypoxia Procedures [place] OFFICE/OUTPATIENT NEW HIGH MDM 60-74 MINUTES Cristel Pichardo, CLAIMS SPECIALIST - ENGINEERING OFFICER [address] [place] [address] Kwesi Lorenzo [address] [place] [address] Referral ID Status Reason Start Date Expiration Date Visits Requested Visits Authorized [id number] Pending Review Specialty Services Required 02/26/2023 02/26/2024 1 1 [facility] Summary Purpose Family History No Family History Records FoundNo Family History Records FoundNo Family History Records FoundNo Family History Records Found Advance Directives Documents on File Type Date Recorded 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 * Cellulitis (Slovenian) documented in this encounter* Attachments The following attachments cannot be sent through Care Everywhere. * Cellulitis (Slovenian) documented in this encounter* Instructions* Ben Porter MD - 04/08/2020 There are many potential causes of palpitations. Fortunately, all of your tests have returned normal including heart studies. Your electrocardiogram is normal as is a chest x-ray. There is no evidence of blood clots at this time. Your thyroid function is normal. Please follow-up with your primary care physician early next week. Your primary care physician can arrange for outpatient monitoring of your heart over several days. * Attachments The following attachments cannot be sent through Care Everywhere. * Palpitations (Slovenian) documented in this encounter Assessments Diagnosis Cellulitis of other specified site- Primary Diagnosis Cellulitis of abdominal wall- Primary Cellulitis and abscess of trunk Morbid obesity due to excess calories (HCC) Anxiety Anxiety state, unspecified Tobacco abuse disorder Tobacco use disorder Diagnosis Palpitations- Primary Reason for Referral Status Reason Specialty Diagnoses / Procedures Referred By Contact Referred To Contact Open Specialty Services Required Family Medicine Diagnoses Cellulitis of abdominal wall Morbid obesity due to excess calories (HCC) Anxiety Tobacco abuse disorder Sinai Fox MD [address] [place] [address] [place] [address] Scheduling Instructions [address] [place] [address] Specialty Diagnoses / Procedures Referred By Contac t Referred To Contact CT IMAGING Diagnoses Disorder of adrenal gland (HCC) Procedures CT ADRENAL WO/W IVCON CT ABDOMEN W & W/O CONTRAST Gay Crisostomo APRN.ENGINEERING OFFICER [address] [place] [address] Ct Imaging Referral ID Status Reason Start Date Expiration Date V isits Requested Visits Authorized [id number] Open Auto-Generate d Referral 08/03/2021 09/02/2022 1 1 Referral ID Status Reason Start Date Expiration Date Visits Requested Visits Authorized [id number] Additional Clinical Info Needed Auto-Genera denis Referral Patient Cleared - Admin/Chair man/Directo r advise to proceed 08/03/2021 09/02/2022 1 1 Specialty Diagnoses / Procedures Referred By Don t Referred To Contact Cardiology Diagnoses Syncope and collapse Chest pain, unspecified type Fluttering heart Procedures CONSULT TO CARDIOLOGY OFFICE/OUTPATIENT [facility] 60-74 MINUTES Podlogar, ABBIE Bartholomew.ENGINEERING OFFICER [address] [place] [address] Referral ID Status Reason Start Date Expiration Date Visits Requested Visits Authorized [id number] Authorized PCP Requested Referral 12/04/2021 12/04/2022 1 1 Specialty Diagnoses / Procedures Referred By Don hammer Ref[facility] Diagnoses Syncope and collapse Shortness of breath Chest pain, unspecified type Fluttering heart Procedures ECG COMPLETE ECG ROUTINE ECG W/LEAST 12 LDS W/I&R Podlogar, ABBIE Bartholomew.ENGINEERING OFFICER [address] [place] [address] [facility] [address] [place] [address] Referral ID Status Reason Start Date Expiration Date V isits Requested Visits Authorized [id number] Closed Auto-Generate d Referral 12/04/2021 12/04/2022 1 1 Specialty Diagnoses / Procedures Referred By Don hammer Referred To Contact [facility] Diagnoses Shortness of breath Procedures SPIROMETRY - BASELINE AND POST DILATOR BRNCDILAT RSPSE SPMTRY PRE&POST-BRNCDILAT ADMN Podlogar, ABBIE Bartholomew.ENGINEERING OFFICER [address] [place] [address] [facility] [address] [place] [address] Referral ID Status Reason Start Date Expiration Date Visits Requested Visits Authorized [id number] Pending Review Auto-Generat ed Referral 12/04/2021 01/03/2023 1 1 Specialty Diagnoses / Procedures Referred By Don hammer Referred To Contact Diagnoses Shortness of breath Podlogar, Gay, CLAIMS SPECIALIST.ENGINEERING OFFICER [address] [place] [address] Referral ID Status Reason Start Date Expiration Date Visits Re quested Visits Authorized [id number] Closed 1 1 Referral ID Status Reason Start Date Expiration Date V isits Requested Visits Authorized [id number] Pending Review 1 1 Additional Source Comments INFORMATION SOURCE (unrecogn ized section and content) DATE CREATED AUTHOR AUTHOR'S ORGANIZ ATION 04/23/2021 [facility] DATE CREATED AUTHOR AUTHOR'S ORGANIZ ATION 10/22/2022 [facility] DATE CREATED AUTHOR AUTHOR'S ORGANIZ ATION 02/26/2023 [facility] Reason for Visit (unrecogniz ed section and content) Reason Comments Rash Reason Comments Palpitations Reason Onset Date Comments Refill Request 06/28/2021 OUT OF MEDS Reason Onset Date Comments Refill Request 08/02/2021 Reason Comments Medication Follow-up Reason Comments Radiology CT Specialty Diagnoses / Procedures Referred By Don hammer Referred To Contact CT IMAGING Diagnoses Disorder of adrenal gland (HCC) Procedures CT ADRENAL WO/W IVCON CT ABDOMEN W & W/O CONTRAST Gay Crisostomo APRN.ENGINEERING OFFICER [address] [place] [address] Ct Imaging Referral ID Status Reason Start Date Expiration Date Visits Requested Visits Authorized [id number] Additional Clinical Info Needed Auto-Genera denis Referral Patient Cleared - Admin/Chair man/Directo r advise to proceed 08/03/2021 09/02/2022 1 1 Reason Comments Consult Reason Comments Results Reason Comments Breathing Problem SOB since having HTN Reason Comments Blood Pressure Follow up Reason Comments Appointment Stress test instruct ions Reason Onset Date Comments Refill Request 03/13/2022 Reason Onset Date Comments Refill Request 03/19/2022 Reason Onset Date Comments Refill Request 04/01/2022 Reason Onset Date Comments Refill Request 05/09/2022 Reason Onset Date Comments Refill Request 06/17/2022 Reason Onset Date Comments Refill Request 08/16/2022 Reason Onset Date Comments Med Refill 09/13/2022 Reason Onset Date Comments Error (VOID this visit) 10/03/2022 ERROR Reason Comments Appointment Reason Comments Emphysema hypoxemia Has not gotten oxyge n yet Reason Onset Date Comments Med Refill 01/28/2023 Reason Onset Date Comments Medication Problem 02/04/2023 Reason Onset Date Comments Med Refill 02/20/2023 Reason Comments COPD Onset 6 months Health Maintenance Pt declines all HM i tems, flu/PNA/Shingrix/Hep B vaccine, Mammogram, pap smear, colonoscopy, COVID vaccines, HIV/Hep C screens Ordered Prescriptions (unrec ognized section and content) Prescription Sig Dispensed Refills Start Date End Da te cephALEXin (KEFLEX) 500 MG capsule Take 1 capsule by mouth 4 times daily for 7 days 28 capsule 0 05/26/2020 06/02/2020 Source Comments (unrecognize d section and content) In the event this informatio n is protected by the Federal Confidentiality of Alcohol and Drug Abuse Patient Records regulations: The Federal rules restrict any use of the information to criminally investigate or prosecute any alcohol or drug abuse patient.[facility] the event this information is protected by the Federal Confidentiality of Alcohol and Drug Abuse Patient Records regulations: The Federal rules restrict any use of the information to criminally investigate or prosecute any alcohol or drug abuse patient.[facility] the event this information is protected by the Federal Confidentiality of Alcohol and Drug Abuse Patient Records regulations: The Federal rules restrict any use of the information to criminally investigate or prosecute any alcohol or drug abuse patient.[facility] the event this information is protected by the Federal Confidentiality of Alcohol and Drug Abuse Patient Records regulations: The Federal rules restrict any use of the information to criminally investigate or prosecute any alcohol or drug abuse patient.[facility] the event this information is protected by the Federal Confidentiality of Alcohol and Drug Abuse Patient Records regulations: The Federal rules restrict any use of the information to criminally investigate or prosecute any alcohol or drug abuse patient.[facility] the event this information is protected by the Federal Confidentiality of Alcohol and Drug Abuse Patient Records regulations: The Federal rules restrict any use of the information to criminally investigate or prosecute any alcohol or drug abuse patient.[facility] the event this information is protected by the Federal Confidentiality of Alcohol and Drug Abuse Patient Records regulations: The Federal rules restrict any use of the information to criminally investigate or prosecute any alcohol or drug abuse patient.[facility] the event this information is protected by the Federal Confidentiality of Alcohol and Drug Abuse Patient Records regulations: The Federal rules restrict any use of the information to criminally investigate or prosecute any alcohol or drug abuse patient.[facility] the event this information is protected by the Federal Confidentiality of Alcohol and Drug Abuse Patient Records regulations: The Federal rules restrict any use of the information to criminally investigate or prosecute any alcohol or drug abuse patient.[facility] the event this information is protected by the Federal Confidentiality of Alcohol and Drug Abuse Patient Records regulations: The Federal rules restrict any use of the information to criminally investigate or prosecute any alcohol or drug abuse patient.[facility] the event this information is protected by the Federal Confidentiality of Alcohol and Drug Abuse Patient Records regulations: The Federal rules restrict any use of the information to criminally investigate or prosecute any alcohol or drug abuse patient.[facility] the event this information is protected by the Federal Confidentiality of Alcohol and Drug Abuse Patient Records regulations: The Federal rules restrict any use of the information to criminally investigate or prosecute any alcohol or drug abuse patient.[facility] the event this information is protected by the Federal Confidentiality of Alcohol and Drug Abuse Patient Records regulations: The Federal rules restrict any use of the information to criminally investigate or prosecute any alcohol or drug abuse patient.[facility] the event this information is protected by the Federal Confidentiality of Alcohol and Drug Abuse Patient Records regulations: The Federal rules restrict any use of the information to criminally investigate or prosecute any alcohol or drug abuse patient.[facility] the event this information is protected by the Federal Confidentiality of Alcohol and Drug Abuse Patient Records regulations: The Federal rules restrict any use of the information to criminally investigate or prosecute any alcohol or drug abuse patient.[facility] the event this information is protected by the Federal Confidentiality of Alcohol and Drug Abuse Patient Records regulations: The Federal rules restrict any use of the information to criminally investigate or prosecute any alcohol or drug abuse patient.[facility] the event this information is protected by the Federal Confidentiality of Alcohol and Drug Abuse Patient Records regulations: The Federal rules restrict any use of the information to criminally investigate or prosecute any alcohol or drug abuse patient.[facility] the event this information is protected by the Federal Confidentiality of Alcohol and Drug Abuse Patient Records regulations: The Federal rules restrict any use of the information to criminally investigate or prosecute any alcohol or drug abuse patient.[facility] the event this information is protected by the Federal Confidentiality of Alcohol and Drug Abuse Patient Records regulations: The Federal rules restrict any use of the information to criminally investigate or prosecute any alcohol or drug abuse patient.[facility] the event this information is protected by the Federal Confidentiality of Alcohol and Drug Abuse Patient Records regulations: The Federal rules restrict any use of the information to criminally investigate or prosecute any alcohol or drug abuse patient.[facility] the event this information is protected by the Federal Confidentiality of Alcohol and Drug Abuse Patient Records regulations: The Federal rules restrict any use of the information to criminally investigate or prosecute any alcohol or drug abuse patient.[facility] the event this information is protected by the Federal Confidentiality of Alcohol and Drug Abuse Patient Records regulations: The Federal rules restrict any use of the information to criminally investigate or prosecute any alcohol or drug abuse patient.[facility] the event this information is protected by the Federal Confidentiality of Alcohol and Drug Abuse Patient Records regulations: The Federal rules restrict any use of the information to criminally investigate or prosecute any alcohol or drug abuse patient.[facility] Care Teams (unrecognized sec tion and content) Manager Digital Relationship Specialty Start Date End Date Israel Randolph MD [address] [place] [address] PCP - General Family Practice 03/07/16 Manager Digital Relationship Specialty Start Date End Date Israel Randolph MD [facility] [place] [address] PCP - General Family Practice 03/07/16 Manager Digital Relationship Specialty Start Date End Date Israel Randolph MD [facility] [place] [address] PCP - General Family Practice 03/07/16 Manager Digital Relationship Specialty Start Date End Date Israel Randolph MD [facility] [place] [address] PCP - General Family Practice 03/07/16 Manager Digital Relationship Specialty Start Date End Date Israel Randolph MD [facility] [place] [address] PCP - General Family Practice 03/07/16 Manager Digital Relationship Specialty Start Date End Date Israel Randolph MD [facility] [place] [address] PCP - General Family Practice 03/07/16 Manager Digital Relationship Specialty Start Date End Date Israel Randolph MD [facility] [place] [address] PCP - General Family Practice 03/07/16 Manager Digital Relationship Specialty Start Date End Date Israel Randolph MD [address] [facility] [place] [address] PCP - General Family Practice 03/07/16 Manager Digital Relationship Specialty Start Date End Date Israel Randolph MD [address] [facility] [place] [address] PCP - General Family Practice 03/07/16 Manager Digital Relationship Specialty Start Date End Date Israel Randolph MD [address] [facility] [place] [address] PCP - General Family Practice 03/07/16 Manager Digital Relationship Specialty Start Date End Date Israel Randolph MD [address] [facility] [place] [address] PCP - General Family Medicine 03/07/16 Manager Digital Relationship Specialty Start Date End Date Israel Randolph MD [address] [facility] [place] [address] PCP - General Family Medicine 03/07/16 Manager Digital Relationship Specialty Start Date End Date Israel Randolph MD [address] [facility] [place] [address] PCP - General Family Medicine 03/07/16 Manager Digital Relationship Specialty Start Date End Date Israel Randolph MD [address] [facility] [place] [address] PCP - General Family Medicine 03/07/16 Manager Digital Relationship Specialty Start Date End Date Israel Randolph MD [address] [facility] [place] [address] PCP - General Family Medicine 03/07/16 Manager Digital Relationship Specialty Start Date End Date Israel Randolph MD [address] [facility] [place] [address] PCP - General Family Medicine 03/07/16 Manager Digital Relationship Specialty Start Date End Date Israel Randolph MD [address] [place] [address] PCP - General Family Medicine 03/07/16 Manager Digital Relationship Specialty Start Date End [place] [address] PCP - General Family Medicine 08/14/22 Manager Digital Relationship Specialty Start Date End [place] [address] PCP - General Family Medicine 08/14/22 Manager Digital Relationship Specialty Start Date End Date Israel Randolph MD [address] [facility] [place] [address] PCP - General Family Medicine 03/07/16 Manager Digital Relationship Specialty Start Date End Date Keira Hur[facility] [place] [address] PCP - General Family Medicine 08/14/22 Manager Digital Relationship Specialty Start Date End Date Keira Hurley MD [facility] [place] [address] PCP - General Family Medicine 08/14/22 Manager Digital Relationship Specialty Start Date End [place] [address] PCP - General Family Medicine 08/14/22 Manager Digital Relationship Specialty Start Date End Date Keira Hurley MD [address] [place] [id number] PCP - General [facility] 08/14/22 Manager Digital Relationship Specialty Start Date End Date Keira Hurley MD [address] [place] [id number] PCP - General Family [facility] 08/14/22 FOR RECORDS PERTAINING TO PATIENTS WHO ARE OR HAVE BEEN ENROLLED IN A CHEMICAL DEPENDENCY/SUBSTANCEABUSE PROGRAM, SOME INFORMATION MAY BE OMITTED. This clinical summary was aggregated from multiple sources. Caution should be exercised in using it in the provision of clinical care. This summary normalizes information from multiple sources, and as a consequence, information in this document may materially change the coding, format and clinical context of patient data. In addition, data may be omitted in some cases. CLINICAL DECISIONS SHOULD BE BASED ON THE PRIMARY CLINICAL RECORDS. [facility]. provides no warranty or guarantee of the accuracy or completeness of information in this document.
--- OUTSIDE RECORDS SUMMARY | 2023-03-19 18:03 | XMS RPT_ITS | CCD ---
Author Name Unknown Address [address] [place] [address] Organization [facility] Care Team Providers Care Airport Baggage Screener Name Role Phone TRESA SCHUSTER Unavailable Unavailable [...] Allergy 01-17-2015 Shortness Of Breath, Anaphylaxis, Vomiting [facility]- [place], [place] Medications Current Medications Medication [...] (BldA) [Mass fraction] 96 % Cristel Pichardo ENGINEERING DRAFTER - COAT AGENT Work Phone: [facility] Encounters Encounter Date Encounter Type Care Provider Facility Start: 02-26-2023 End: 02-26-2023 ambulatory CRISTEL PICHARDO [facility] Start: 02-26-2023 End: 02-26-2023 Office outpatient visit 25 minutes Cristel Pichardo ENGINEERING DRAFTER - COAT AGENT Work Phone: [facility] Procedures Date Procedure Procedure Detail Performing Clinician Start: 09-16-2022 Lipid 1996 panel - S ivone or Plasma Keira Hurley MD Work Phone: Start: 08-09-2021 Ct abdomen w/o & w/contrast material Gay Podlogkatie ENGINEERING DRAFTER.COAT AGENT Work Phone: Start: 06-09-2020 Adult depression scr [...] 04-08-2020 Assay of thyroid stimulating hormone tsh Bne Porter Work Phone: Start: 04-08-2020 Assay of [...] or older (1 - 1-dose 60+ series) [facility] Start: 06-09-2030 DTaP/Tdap/Td Vaccine s (2 - Td or Tdap) DTaP/Tdap/Td Vaccines (2 - Td or Tdap) [facility] Start: 06-09-2030 Urine microalbumin profile DTAP,TDAP,TD (2 - Td or Tdap) [facility] Start: 09-17-2027 Lipid panel Lipid Panel [facility] Start: 08-09-2026 LIPID SCREEN LIPID SCREEN [facility] Start: 12-04-2024 DIABETES SCREEN DIABETES SCREEN [facility] Start: 08-21-2024 DIABETES SCREEN DIABETES SCREEN [facility] Start: 08-09-2024 DIABETES SCREEN DIABETES SCREEN [facility] Start: 02-27-2024 Screening for malign ant neoplasm of breast Mammogram [facility] Immunizations Immunization Date Immunization Notes Care Provider Fa cility 06-09-2020 tetanus toxoid, redu jennifer diphtheria toxoid, and acellular pertussis vaccine, adsorbed Isarel Randolph MD Work Phone: [facility] 03-07-2016 pneumococcal polysaccharide vaccine, 23 valent Israel Randolph MD Work Phone: [facility] 1971 measles, mumps and rubella virus vaccine Keira Hurley MD Work Phone: [facility] Payers Date Payer Category Payer Medicaid [id number] 2016 Self-pay 2015 Medicaid [employer] MEDICAID [id number] 2015-Present [phone] [address] [place] [address] Medicaid [id number] 2015 Medicaid [id number] 2014 Private Health Insurance 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 Start: 06-19-2021 End: 11-18-2022 Exposure to SARS-CoV-2 (event) Not sure [facility] History of tobacco use Cigarette Smoker [facility] Work Phone: Start: 05-31-2020 End: 12-19-2021 Alcohol intake Current drinker of alcohol (finding) [facility] Start: 08-11-2021 End: 08-21-2021 Exposure to SARS-CoV-2 (event) Unable to assess [facility] Work Phone: Start: 08-14-2022 End: 02-26-2023 Tobacco use panel [facility] How hard is it for y ou to pay for the very basics like food, housing, medical care, and heating Hard [facility] (I/We) worried wheth er (my/our) food would run out before (I/we) got money to buy more. Sometimes true [facility] The food that (I/we) bought just didn't last, and (I/we) didn't have money to get more. DK or Refused [facility] In the past 12 month s, has lack of transportation kept you from medical appointments or from getting medications? Yes [facility] Clinical Notes 07-04-2021 to 02-26-2023 Cristel Pichardo, ABBIE - COAT AGENT - 02/26/2023 3:00 PM ESTPatient InstructionsAttachmentsTelephone Encounter [...] 02/26/2023 4:10 PM documented in this encounter [facility] 02-26-2023 Instructions ABBIE Logan CNP - 02/26/2023 3:00 PM EST Kwesi Lorenzo MD- pulmonology [address], [place] [address] The following attachments cannot be sent through Care Everywhere.Umeclidinium and Vilanterol, ADULT (Slovenian)documented in this encounter [facility] 02-20-2023 Telephone encounter Note Reviewed chart. Refill appropriate. RX sent. [facility] 02-20-2023 Miscellaneous Notes Reviewed chart. Refill appropriate. RX sent. Prescription Request: Last medication check: new pt 08/14/22 Last physical exam: none Last completed appointment: 11/18/22 Next scheduled appointment: none Last date of refill on this medication: 08/14/22 documented in this encounter [facility] 02-20-2023 Telephone encounter Note Prescription Request: Last medication check: new pt 08/14/22 Last physical exam: none Last completed appointment: 11/18/22 Next scheduled appointment: none Last date of refill on this medication: 08/14/22 [facility] 02-04-2023 Telephone encounter Note Name of caller: Nikole Contact phone number: [phone] Relationship to Patient: patient Provider: Dr. Hurley [...] business hours to return their call: No [facility] 02-04-2023 Miscellaneous Notes Name of caller: Nikole Contact phone number: [phone] Relationship to Patient: patient Provider: Dr. Hurley [...] their call: No documented in this encounter [facility] 01-28-2023 Telephone encounter Note Ordering provider: Dr. [...] of last refill (see medication tab): 08.14.2022 [facility] 01-28-2023 Miscellaneous Notes Ordering provider: Dr. [...] medication tab): 08.14.2022 documented in this encounter [facility] 11-18-2022 Evaluation + Plan note Associated [...] and soon oxygenIf she continues to smoke [facility] 11-18-2022 Evaluation + Plan note Associated Problem(s): Hypoxemia We called the oxygen supplier to see if they can bring her oxygen JUNIOR. [facility] 11-18-2022 Miscellaneous Notes Associated Problem(s): Cigarette [...] and albuterol inhaler. documented in this encounter [facility] 11-18-2022 Evaluation + Plan note Associated Problem(s): Hypertension Controlled, continue lisinopril 20 mg daily and metoprolol 75 mg twice a day and Maxzide 70-50 mg tablet daily [facility] 11-18-2022 Evaluation + Plan note Associated Problem(s): Other emphysema (HCC) Encouraged smoking cessation, we called the oxygen supplier and they said they had tried to contact her multiple times and left messages. Continue albuterol nebulizer solution, we will get her a new mask and tube and albuterol inhaler. [facility] 11-18-2022 History of Present illness Narrative [...] in about 4 weeks (around 12/16/2022). SUBJECTIVE/OBJECTIVE: AJNUM Spencer comes in today for follow-up on [...] 11/18/2022 5:01 PM documented in this encounter [facility] 10-21-2022 Miscellaneous Notes Letter mailed to pt home notifying pt that she is due for a follow up and to call office to schedule. Carlene Fajardo Ma Phoned patient and message left for her to return call to schedule and appointment with PCP/team. Patient was advised 12/19/21 to follow back up 2 weeks or sooner. documented in this encounter [facility] 10-03-2022 Telephone encounter Note ERROR [facility] 10-03-2022 Miscellaneous Notes ERROR documented in this encounter [facility] 09-13-2022 Telephone encounter Note Rx sent. [facility] 09-13-2022 Miscellaneous Notes Rx sent. Medication [...] the medication: Yes documented in this encounter [facility] 09-13-2022 Telephone encounter Note Medication name: [...] prior to picking up the medication: Yes [facility] 08-20-2022 Miscellaneous Notes Patient is due [...] patient. Erica Benavidez documented in this encounter [facility] 06-17-2022 Miscellaneous Notes The following approved [...] patient. Erica Benavidez documented in this encounter [facility] 05-09-2022 Miscellaneous Notes Patient has been [...] visits. Erica Benavidez documented in this encounter [facility] 04-24-2022 Note Patient Outreach (IN TMMN) NIKOLE BHARDWAJ ([id number]) 1970 F Date Time Provider Department 04/24/22 ISRAEL RANDOLPH During your visit today, we recorded the following information about you: Allergies As of Date: 04/24/2022 Noted Allergy Reaction NAPROXEN 03/07/2016 10 - Anaphylaxis 11 - Vomiting Date Reviewed: 12/19/2021 Reviewed by: Leidy Aguilar LPN - Fully Assessed Visit Diagnosis:Encounter for screening mammogram for breast cancer [Z12.31] Order(s):[facility] SCREENING [[id number]] Order #: [id number] FUTURE Prescriptions as of 04/29/2022 - albuterol [...] Encounter Status:Closed by BRENT LOPEZ on 04/29/22 [facility] 04-01-2022 Miscellaneous Notes Patient has been identified [...] Aureliano Rodrigues Pss documented in this encounter [facility] 03-19-2022 Miscellaneous Notes Pharmacy verified in [facility] Patient has been identified by name [...] Tania Andino Pss documented in this encounter [facility] 03-13-2022 Miscellaneous Notes ROBERT 12/19/21 No [...] advise. Jackelin Webber documented in this encounter [facility] 01-23-2022 Miscellaneous Notes Call to pt [...] floor at Radiology: [address]; [place] [address] * If you need to cancel or reschedule this test or have any questions regarding this test, please call [phone]. documented in this encounter [facility] 01-14-2022 Miscellaneous Notes Letter mailed to [...] Gay Crisostomo APRN.TRISTA documented in this encounter [facility] 12-19-2021 Note HNO ID: [id number] Author: Gay Crisostomo APRN.TRISTA Service: ? Author [...] - plan as in #3 Gay Podlogar, ENGINEERING DRAFTER.COAT AGENT Prescription instructions reviewed with patient as applicable. Patient advised if symptoms do not improve or if sympto (more content not included)... [facility] 12-19-2021 History of Present illness Narrative 12/19/2021 [...] which included preparing to see the patient, [id number] patient care, completing clinical documentation, obtaining and/or reviewing separately obtained history, performing a medically appropriate examination, counseling and educating the patient/family/caregiver, and ordering medications, tests, or procedures. documented in this encounter [facility] 12-04-2021 Note HNO ID: [id number] Author: RT Juan José(R) Service: Radiology Author [...] Juan José(R) December 04, 2021 3:18 PM [facility] 12-04-2021 Note HNO ID: [id number] Author: Leidy Aguilar LPN Service: ? Author Type: LICENSED NURSE Type: Progress Notes Filed: 12/04/2021 3:26 PM Note Text: EVENT MONITOR DISPOSABLE PATCH INSTRUCTIONS Patient Name: Nikole Bhardwaj Clinic Number: [id number] Skin prepped and cleansed with alcohol Patch secured to prepped area Monitor Activated Serial #: [id number] Patient Instructed: Prescribed order timeframe Bathing guidelines Usage of event button and diary documentation Return of monitor at the end of prescribed order Call with problems [phone] or [phone]. [phone] Patient expresses a good understanding of instructions Leidy Aguilar LPN [facility] 12-04-2021 Miscellaneous Notes Pt called and is notified of providers results. Pt voices understanding. Aurelia Worthy RN Please call patient and let her know her xray was normal. Gay Crisostomo APRN.TRISTA documented in this encounter [facility] 12-04-2021 Note HNO ID: [id number] Author: Gay Crisostomo APRN.CNP Service: ? Author [...] at 63 BPM, septal infarct age undetermined OR interval 138 ms, normal QRS, normal ST-T, QT 412 ms - Lab evaluation CMP, TSH, and magnesium - Chest X-ray today. - Stress testing- see orders - Referral to Cardiology - EXERCISE STRESS ECG (WITHOUT IMAGING) - OUTSIDE VENDOR CARDIAC OUTPATIENT EXTENDED RHYTHM RECORDING (more content not included)... [facility] 12-04-2021 Note HNO ID: [id number] Author: Tenisha Jay MD Service: Interventional Cardiology Author Type: Physician Type: Procedures Filed: 12/31/2021 3:59 PM Note Text: Patient Name: Nikole Bhardwaj : 1970 Ordering Provider: Gay Crisostomo Indication: R07.9 Chest pain, unspecified Type of Monitor: Extended Monitoring-Zio Patch Enrollment Dates: 12/04/2021-12/18/2021 [facility] 12-04-2021 History of Present illness Narrative EVENT MONITOR DISPOSABLE PATCH INSTRUCTIONS Patient Name: Nikole Bhardwaj Clinic Number: [id number] Skin prepped and cleansed with alcohol Patch secured to prepped area Monitor Activated Serial #: [id number] Patient Instructed: Prescribed order timeframe Bathing guidelines Usage of event button and diary documentation Return of monitor at the end of prescribed order Call with problems [phone] or [phone] ext. [phone] Patient expresses a good understanding of instructions [...] at 63 BPM, septal infarct age undetermined OR interval 138 ms, normal QRS, normal ST-T, [...] which included preparing to see the patient, [id number] patient care, completing clinical documentation, obtaining and/or reviewing separately obtained history, performing a medically appropriate examination, counseling and educating the patient/family/caregiver, ordering medications, tests, or procedures, and independently interpreting results (not separately reported). documented in this encounter [facility] 09-03-2021 Miscellaneous Notes Letter mailed to [...] appointment with them. She will need to pickers material handlers a medication called dexamethasone at the pharmacy [...] Gay Brown APRN.TRISTA documented in this encounter [facility] 08-27-2021 Miscellaneous Notes Gay Brown APRN.TRISTA [...] Gay Crisostomo APRN.TRISTA documented in this encounter [facility] 08-24-2021 History of Present illness Narrative [...] August 24, 2021 documented in this encounter [facility] 08-14-2021 Miscellaneous Notes Patient telephoned. Message below given. Voices understanding. Patient stated she is having increased hip and back pain and is requesting another appointment with SCALP TREATMENT OPERATOR, she meant to mention it last appointment but said she never got around to it. Appointment scheduled for 08/21/21 at 1040am with SCALP TREATMENT OPERATOR. Lab appointment scheduled for same day. Leidy [...] Gay Crisostomo APRN.TRISTA documented in this encounter [facility] 08-12-2021 History of Present illness Narrative [...] Guallpa MD, YOLY documented in this encounter [facility] 08-09-2021 History of Present illness Narrative [...] 2021 3:59 PM documented in this encounter [facility] 08-03-2021 History of Present illness Narrative [...] her ZIO results. Reviewed on hospital in [facility] for her ER visit on 04/21/2021. [...] to treatment plan. documented in this encounter [facility] 08-02-2021 Miscellaneous Notes 30 day rx [...] Advised to keep appointment.a Pharmacy verified in [facility] Patient has been identified by name [...] Tania Andino Pss documented in this encounter [facility] 07-04-2021 Miscellaneous Notes Detailed message left [...] Deanne Ruano Pss documented in this encounter [facility] Diagnosis Hypertension, essential Unspecified essential hypertension [facility] Diagnosis Hypertension, essential- Primary Unspecified essential hypertension Screening for hyperlipidemia Screening for lipoid disorders Disorder of adrenal gland (HCC) Unspecified disorder of adrenal glands Paroxysmal SVT (supraventricular tachycardia) (HCC) Paroxysmal supraventricular tachycardia documented in this encounter [facility] note* Diagnosis Disorder of adrenal gland (HCC) Unspecified disorder of adrenal glands documented in this encounter [facility] note* Diagnosis Adrenal adenoma, unspecified laterality- Primary documented in this encounter [facility] note* Diagnosis Bilateral adrenal adenomas- Primary documented in this encounter [facility] note* Diagnosis Adrenal adenoma, unspecified laterality- Primary Elevated glucose Other abnormal glucose documented in this encounter [facility] note* Diagnosis Adrenal adenoma, unspecified laterality documented in this encounter [facility] note* Diagnosis Abnormal finding of blood chemistry- Primary Other abnormal blood chemistry documented in this encounter [facility] note* Diagnosis Abnormal blood findings- Primary Other nonspecific findings on examination of blood Paroxysmal SVT (supraventricular tachycardia) (HCC) Paroxysmal supraventricular tachycardia Hyperkalemia Hyperpotassemia documented in this encounter [facility] note* Diagnosis Chest pain, unspecified type- Primary Syncope and collapse Shortness of breath Fluttering heart Ventricular flutter Hypertension, essential Unspecified essential hypertension Tobacco use Tobacco use disorder Marijuana use Cannabis abuse, unspecified documented in this encounter [facility] note* Diagnosis Hypertension, essential- Primary Unspecified essential hypertension Shortness of breath Palpitations Chest pain, unspecified type Fluttering heart Ventricular flutter Syncope, unspecified syncope type documented in this encounter [facility] note* Diagnosis Shortness of breath documented in this encounter [facility] note* Diagnosis Hypertension, essential Unspecified essential hypertension Shortness of breath documented in this encounter [facility] note* Diagnosis Encounter for screening mammogram for breast cancer documented in this encounter [facility] note* Diagnosis Shortness of breath documented in this encounter [facility] note* Diagnosis Hypertension, essential Unspecified essential hypertension Shortness of breath documented in this encounter [facility] note* Diagnosis Shortness of breath documented in this encounter [facility] note* Diagnosis Other emphysema (HCC)- Primary Other emphysema Primary hypertension Unspecified essential hypertension Hypoxemia documented in this encounter [facility] note* Diagnosis Other emphysema (HCC)- Primary Other emphysema Hypoxia Hypoxemia Shortness of breath documented in this encounter [facility] for referral (narrative)* Diagnostic Procedure Only (Routine) - Pending Review Specialty Diagnoses / Procedures Referred By Don hammer Referred To Contact [facility] Diagnoses Encounter for screening mammogram for breast cancer Procedures JAIME SCREENING SCREENING MAMMOGRAPHY BI 2-VIEW BREAST INC CAD Israel Randolph MD [address] [place] [address] [facility] [address] [place] [address] Referral ID Status Reason Start Date Expiration Date Visits Requested Visits Authorized [id number] Pending Review Auto-Generat ed Referral 04/24/2022 05/24/2023 1 1 [facility] for referral (narrative)* Consultation (Routine) - Pending Review Specialty Diagnoses / Procedures Referred By Don hammer Referred To Contact Pulmonology Diagnoses Other emphysema (HCC) Shortness of breath Hypoxia Procedures OR OFFICE/OUTPATIENT NEW HIGH MDM 60-74 MINUTES Cristel Pichardo, ENGINEERING DRAFTER - COAT AGENT [address] [facility] [place] [address] Kwesi Lorenzo [address] [place] [address] Referral ID Status Reason Start Date Expiration Date Visits Requested Visits Authorized [id number] Pending Review Specialty Services Required 02/26/2023 02/26/2024 1 1 [facility] Summary Purpose Family History No Family History Records FoundNo Family History Records FoundNo Family History Records FoundNo Family History Records Found Advance Directives Documents on File Type Date Recorded Patient Commercial Title Examiner Expl anation ACP-Advance Directive ACP-Power of Gas Maker Helper Documents on File Type Date Recorded Patient Commercial Title Examiner Expl anation ACP-Advance Directive ACP-Power of Gas Maker Helper Discharge Instructions * Instructions* You Mcdermott MD - 05/11/2020 Return for fever or spread of the rash * Attachments The following attachments cannot be sent through Care Everywhere. * Cellulitis (Slovenian) documented in this encounter* Attachments The following attachments cannot be sent through Care Everywhere. * Cellulitis (Slovenian) documented in this encounter* Instructions* Bne Porter MD - 04/08/2020 There are many [...] Anxiety Tobacco abuse disorder Sinai Fox MD [address] [place] [address] [place] [address] Scheduling Instructions [address] [place] [address] Specialty Diagnoses / Procedures Referred By Contac t Referred To Contact CT IMAGING Diagnoses Disorder of adrenal gland (HCC) Procedures CT ADRENAL WO/W IVCON CT ABDOMEN W & W/O CONTRAST Gay Crisostomo APRN.COAT AGENT [address] [place] [address] Ct Imaging Referral ID Status Reason Start Date Expiration Date V isits Requested Visits Authorized [id number] Open Auto-Generate d Referral 08/03/2021 09/02/2022 1 1 Referral ID Status Reason Start Date Expiration Date Visits Requested Visits Authorized [id number] Additional Clinical Info Needed Auto-Genera denis Referral Patient Cleared - Admin/Chair man/Directo r advise to proceed 08/03/2021 09/02/2022 1 1 Specialty Diagnoses / Procedures Referred By Don t Referred To Contact Cardiology Diagnoses Syncope and collapse Chest pain, unspecified type Fluttering heart Procedures CONSULT TO CARDIOLOGY OFFICE/OUTPATIENT [facility] 60-74 MINUTES Podlogar, ABBIE Bartholomew.COAT AGENT [address] [place] [address] Referral ID Status Reason Start Date Expiration Date Visits Requested Visits Authorized [id number] Authorized PCP Requested Referral 12/04/2021 12/04/2022 1 1 Specialty Diagnoses / Procedures Referred By Don hammer Ref[facility] Diagnoses Syncope and collapse Shortness of breath Chest pain, unspecified type Fluttering heart Procedures ECG COMPLETE ECG ROUTINE ECG W/LEAST 12 LDS W/I&R Podlogar, ABBIE Bartholomew.COAT AGENT [address] [place] [address] [facility] [address] [place] [address] Referral ID Status Reason Start Date Expiration Date V isits Requested Visits Authorized [id number] Closed Auto-Generate d Referral 12/04/2021 12/04/2022 1 1 Specialty Diagnoses / Procedures Referred By Don hammer Referred To [facility] Diagnoses Shortness of breath Procedures SPIROMETRY - BASELINE AND POST DILATOR BRNCDILAT RSPSE SPMTRY PRE&POST-BRNCDILAT ADMN Podlogar, ABBIE Bartholomew.COAT AGENT [address] [place] [address] [facility] [address] [place] [address] Referral ID Status Reason Start Date Expiration Date Visits Requested Visits Authorized [id number] Pending Review Auto-Generat ed Referral 12/04/2021 01/03/2023 1 1 Specialty Diagnoses / Procedures Referred By Don hammer Referred To Contact Diagnoses Shortness of breath Podlogar, Gay, ENGINEERING DRAFTER.COAT AGENT [address] [place] [address] Referral ID Status Reason Start Date Expiration Date Visits Re quested Visits Authorized [id number] Closed 1 1 Referral ID Status Reason Start Date Expiration Date V isits Requested Visits Authorized [id number] Pending Review 1 1 Additional Source Comments INFORMATION SOURCE (unrecogn ized section and content) DATE CREATED AUTHOR AUTHOR'S ORGANIZ ATION 04/23/2021 [facility] DATE CREATED AUTHOR AUTHOR'S ORGANIZ ATION 10/22/2022 [facility] DATE CREATED AUTHOR AUTHOR'S ORGANIZ ATION 02/26/2023 [facility] Reason for Visit [...] ABDOMEN W & W/O CONTRAST Gay Crisostomo APRN.COAT AGENT [address] [place] [address] Ct Imaging Referral ID Status Reason Start Date Expiration Date Visits Requested Visits Authorized [id number] Additional Clinical Info Needed Auto-Genera denis Referral [...] or prosecute any alcohol or drug abuse patient.[facility] the event this information is protected by the Federal Confidentiality of Alcohol and Drug Abuse Patient Records regulations: The Federal rules restrict any use of the information to criminally investigate or prosecute any alcohol or drug abuse patient.[facility] the event this information is protected by the Federal Confidentiality of Alcohol and Drug Abuse Patient Records regulations: The Federal rules restrict any use of the information to criminally investigate or prosecute any alcohol or drug abuse patient.[facility] the event this information is protected by the Federal Confidentiality of Alcohol and Drug Abuse Patient Records regulations: The Federal rules restrict any use of the information to criminally investigate or prosecute any alcohol or drug abuse patient.[facility] the event this information is protected by the Federal Confidentiality of Alcohol and Drug Abuse Patient Records regulations: The Federal rules restrict any use of the information to criminally investigate or prosecute any alcohol or drug abuse patient.[facility] the event this information is protected by the Federal Confidentiality of Alcohol and Drug Abuse Patient Records regulations: The Federal rules restrict any use of the information to criminally investigate or prosecute any alcohol or drug abuse patient.[facility] the event this information is protected by the Federal Confidentiality of Alcohol and Drug Abuse Patient Records regulations: The Federal rules restrict any use of the information to criminally investigate or prosecute any alcohol or drug abuse patient.[facility] the event this information is protected by the Federal Confidentiality of Alcohol and Drug Abuse Patient Records regulations: The Federal rules restrict any use of the information to criminally investigate or prosecute any alcohol or drug abuse patient.[facility] the event this information is protected by the Federal Confidentiality of Alcohol and Drug Abuse Patient Records regulations: The Federal rules restrict any use of the information to criminally investigate or prosecute any alcohol or drug abuse patient.[facility] the event this information is protected by the Federal Confidentiality of Alcohol and Drug Abuse Patient Records regulations: The Federal rules restrict any use of the information to criminally investigate or prosecute any alcohol or drug abuse patient.[facility] HospitalIn the event this information is protected by the Federal Confidentiality of Alcohol and Drug Abuse Patient Records regulations: The Federal rules restrict any use of the information to criminally investigate or prosecute any alcohol or drug abuse patient.[facility] the event this information is protected by the Federal Confidentiality of Alcohol and Drug Abuse Patient Records regulations: The Federal rules restrict any use of the information to criminally investigate or prosecute any alcohol or drug abuse patient.[facility] Hospital[facility] the event this information is protected by the Federal Confidentiality of Alcohol and Drug Abuse Patient Records regulations: The Federal rules restrict any use of the information to criminally investigate or prosecute any alcohol or drug abuse patient.[facility] Hospital[facility] the event this information is protected by the Federal Confidentiality of Alcohol and Drug Abuse Patient Records regulations: The Federal rules restrict any use of the information to criminally investigate or prosecute any alcohol or drug abuse patient.[facility] HospitalIn the event this information is protected by the Federal Confidentiality of Alcohol and Drug Abuse Patient Records regulations: The Federal rules restrict any use of the information to criminally investigate or prosecute any alcohol or drug abuse patient.[facility] HospitalIn the event this information is protected by the Federal Confidentiality of Alcohol and Drug Abuse Patient Records regulations: The Federal rules restrict any use of the information to criminally investigate or prosecute any alcohol or drug abuse patient.[facility] HospitalIn the event this information is protected by the Federal Confidentiality of Alcohol and Drug Abuse Patient Records regulations: The Federal rules restrict any use of the information to criminally investigate or prosecute any alcohol or drug abuse patient.[facility] HospitalIn the event this information is protected by the Federal Confidentiality of Alcohol and Drug Abuse Patient Records regulations: The Federal rules restrict any use of the information to criminally investigate or prosecute any alcohol or drug abuse patient.[facility] HospitalIn the event this information is protected by the Federal Confidentiality of Alcohol and Drug Abuse Patient Records regulations: The Federal rules restrict any use of the information to criminally investigate or prosecute any alcohol or drug abuse patient.[facility] HospitalIn the event this information is protected by the Federal Confidentiality of Alcohol and Drug Abuse Patient Records regulations: The Federal rules restrict any use of the information to criminally investigate or prosecute any alcohol or drug abuse patient.[facility] HospitalIn the event this information is protected by the Federal Confidentiality of Alcohol and Drug Abuse Patient Records regulations: The Federal rules restrict any use of the information to criminally investigate or prosecute any alcohol or drug abuse patient.[facility] HospitalIn the event this information is protected by the Federal Confidentiality of Alcohol and Drug Abuse Patient Records regulations: The Federal rules restrict any use of the information to criminally investigate or prosecute any alcohol or drug abuse patient.[facility] HospitalIn the event this information is protected by the Federal Confidentiality of Alcohol and Drug Abuse Patient Records regulations: The Federal rules restrict any use of the information to criminally investigate or prosecute any alcohol or drug abuse patient.[facility] Care Teams (unrecognized sec tion and content) Airport Baggage Screener Relationship Specialty Start Date End Date Israel Randolph MD [address] [place] [address] PCP - General Family Practice 03/07/16 Airport Baggage Screener Relationship Specialty Start Date End Date Israel Randolph MD [facility] [place] [address] PCP - General Family Practice 03/07/16 Airport Baggage Screener Relationship Specialty Start Date End Date Israel Randolph MD [facility] [place] [address] PCP - General Family Practice 03/07/16 Airport Baggage Screener Relationship Specialty Start Date End Date Israel Randolph MD [facility] [place] [address] PCP - General Family Practice 03/07/16 Airport Baggage Screener Relationship Specialty Start Date End Date Israel Randolph MD [facility] [place] [address] PCP - General Family Practice 03/07/16 Airport Baggage Screener Relationship Specialty Start Date End Date Israel Randolph MD [facility] [place] [address] PCP - General Family Practice 03/07/16 Airport Baggage Screener Relationship Specialty Start Date End Date Israel Randolph MD [facility] [place] [address] PCP - General Family Practice 03/07/16 Airport Baggage Screener Relationship Specialty Start Date End Date Israel Randolph MD [address] [facility] [place] [address] PCP - General Family Practice 03/07/16 Airport Baggage Screener Relationship Specialty Start Date End Date Israel Randolph MD [address] [facility] [place] [address] PCP - General Family Practice 03/07/16 Airport Baggage Screener Relationship Specialty Start Date End Date Israel Randolph MD [address] [facility] [place] [address] PCP - General Family Practice 03/07/16 Airport Baggage Screener Relationship Specialty Start Date End Date Israel Randolph MD [address] [facility] [place] [address] PCP - General Family Medicine 03/07/16 Airport Baggage Screener Relationship Specialty Start Date End Date Israel Randolph MD [address] [facility] [place] [address] PCP - General Family Medicine 03/07/16 Airport Baggage Screener Relationship Specialty Start Date End Date Israel Randolph MD [address] [facility] [place] [address] PCP - General Family Medicine 03/07/16 Airport Baggage Screener Relationship Specialty Start Date End Date Israel Randolph MD [address] [facility] [place] [address] PCP - General Family Medicine 03/07/16 Airport Baggage Screener Relationship Specialty Start Date End Date Israel Randolph MD [address] [facility] [place] [address] PCP - General Family Medicine 03/07/16 Airport Baggage Screener Relationship Specialty Start Date End Date Israel Randolph MD [address] [facility] [place] [address] PCP - General Family Medicine 03/07/16 Airport Baggage Screener Relationship Specialty Start Date End Date Israel Randolph MD [address] [facility] [place] [address] PCP - General Family Medicine 03/07/16 Airport Baggage Screener Relationship Specialty Start Date End [place] [address] PCP - General Family Medicine 08/14/22 Airport Baggage Screener Relationship Specialty Start Date End [place] [address] PCP - General Family Medicine 08/14/22 Airport Baggage Screener Relationship Specialty Start Date End Date Israel Randolph MD [address] [facility] [place] [address] PCP - General Family Medicine 03/07/16 Airport Baggage Screener Relationship Specialty Start Date End Date [facility] [place] [address] PCP - General Family Medicine 08/14/22 Airport Baggage Screener Relationship Specialty Start Date End Date [facility] [place] [address] PCP - General Family Medicine 08/14/22 Airport Baggage Screener Relationship Specialty Start Date End [place] [address] PCP - General Family Medicine 08/14/22 Airport Baggage Screener Relationship Specialty Start Date End Date Keira Hurley MD [address] [place] [address] PCP - General [facility] 08/14/22 Airport Baggage Screener Relationship Specialty Start Date End Date Keira Hurley MD [address] [place] [address] PCP - General Family [facility] 08/14/22 FOR RECORDS PERTAINING TO PATIENTS WHO [...] BE BASED ON THE PRIMARY CLINICAL RECORDS. [facility]. provides no warranty or guarantee of the accuracy or completeness of information in this document.
== END 2023-03-19 15:30 | disposition home or self-care (01) | DRG 194 ==
LOC: ED 23:06 → PCU 03-18 00:32
PROVIDERS: Admitting Provider Internal Medicine; Emergency Provider Emergency Medicine; PCP Family Medicine; Visit Provider Student in an Organized Health Care Education/Training Program
DX: I11.0 Hypertensive heart disease with heart failure (principal); J96.11 Chronic respiratory failure with hypoxia; N17.9 Acute kidney failure, unspecified; Z99.81 Dependence on supplemental oxygen; I50.33 Acute on chronic diastolic (congestive) heart failure; Z68.43 Body mass index [BMI] 50.0-59.9, adult; J44.9 Chronic obstructive pulmonary disease, unspecified; E66.01 Morbid (severe) obesity due to excess calories; I48.0 Paroxysmal atrial fibrillation; G47.33 Obstructive sleep apnea (adult) (pediatric); F17.210 Nicotine dependence, cigarettes, uncomplicated; Z59.11 Inadequate housing environmental temperature; Z59.12 Inadequate housing utilities; Z59.6 Low income; Z79.82 Long term (current) use of aspirin; Z79.899 Other long term (current) drug therapy
CPT/HCPCS: 36415; 71045; 80048; 80053; 80076; 83735; 83880; 84100; 84443; 84484; 85025; 93005; 93306; 93970; 97802; 99281; 99406; Q9957; A4216; C8929; J1940

== ENCOUNTER 2023-03-21 20:48 | Inpatient (IN) | payer MEDICAID, SELFPAY ==
[2023-03-21 20:49] VITALS: PULSE 67; RESP 22; TEMP 36.4; O2SAT 85; O2SAT 96; BMI 51.8
[2023-03-21 20:57] VITALS: BP 98/45; PULSE 65; RESP 22; TEMP 36.4; O2SAT 95
[2023-03-21 20:58] VITALS: O2SAT 95
--- NOTE | 2023-03-21 21:17 | ED.VIS.DYS ---
HPI History of Present Illness Chief Complaint: Shortness of Breath [facility] Medical History Adrenal mass Atrial fibrillation with rapid ventricular response (06/29/19) Essential hypertension Heroin use disorder, moderate, in early remission Marijuana abuse Nicotine abuse Paroxysmal atrial fibrillation Paroxysmal supraventricular tachycardia Home Medications aspirin 325 mg tablet,delayed release 325 mg PO DAILY 08/21/19 [History Last Taken Unknown] albuterol sulfate .Route 03/17/23 [History Last Taken Unknown] aspirin 81 mg tablet,delayed release (Adult Low Dose Aspirin) 81 mg PO DAILY 03/17/23 [History Last Taken Unknown] lisinopril 20 mg tablet 20 mg PO DAILY 03/17/23 [History Last Taken Unknown] metoprolol tartrate 50 mg tablet 75 mg PO BID 03/17/23 [History Last Taken Unknown] potassium 99 mg tablet 99 mg PO DAILY 03/17/23 [History Last Taken Unknown] umeclidinium-vilanterol inhalation 03/17/23 [History Last Taken Unknown] furosemide 40 mg tablet 40 mg PO DAILY #30 tabs 03/19/23 [Rx Last Taken Unknown] metoprolol tartrate 25 mg tablet 25 mg PO BID #30 tabs 03/19/23 [Rx Last Taken Unknown] Allergy/AdvReac Type Severity Reaction Status Date / Time naproxen Allergy Shortness Verified 03/21/23 20:54 of breath Opioids - Morphine Analogues AdvReac Other Verified 03/21/23 20:54 Surgical History History of cardioversion (06/29/19) Social History Smoking Status: Current every day smoker tobacco type: cigarettes substance use type: opiates caffeine: Yes Type: coffee and other EXAM Physical Exam Const Vital Signs: 03/21/23 20:49 03/21/23 20:57 03/21/23 20:58 Temperature 97.6 F L 97.6 F L Temperature Source Temporal Temporal Pulse Rate 67 65 Respiratory Rate 22 H 22 H Respiratory Effort Short of Breath Labored Respiratory Depth Normal Respiratory Pattern Normal Blood Pressure 98/45 L Blood Pressure Mean 62 Pulse Ox 96 95 Oxygen Delivery Method Nasal Cannula Nasal Cannula Nasal Cannula Oxygen Flow Rate (L/min) 5 5 5 03/21/23 21:29 03/21/23 23:14 Temperature 97.5 F L Temperature Source Temporal Pulse Rate 62 Respiratory Rate 17 Respiratory Effort Respiratory Depth Respiratory Pattern Blood Pressure 97/62 Blood Pressure Mean 73 Pulse Ox 95 Oxygen Delivery Method Nasal Cannula Nasal Cannula Oxygen Flow Rate (L/min) 5 5 [facility] MDM Narrative Medical decision making narrative: HISTORY OF PRESENT ILLNESS: 52-year-old female presents with shortness of breath states she feels swollen. Notes she wears 5 L of oxygen at home. States symptoms have been ongoing for last several days although she notes she always feels short of breath and swollen. Notes compliance with her home medication. Denies any chest pain. Denies any bleeding diathesis. Denies any palpitations. Denies any unilateral leg swelling. The patient denies recent surgery in the last 4 weeks or immobilization in the last 3 days, denies previous diagnosis of DVT or PE, hemoptysis, unilateral leg swelling or malignancy with treatment the last 6 months or palliative. No estrogen use noted. REVIEW OF SYSTEMS: Pertinent positives: Shortness of breath, edema Pertinent negatives: CP, syncope PHYSICAL EXAM: Nursing triage notes reviewed, Vital signs reviewed Constitutional: please see mdm HENT: MMM Eyes: Pupils equal round and reactive to light, Extraocular muscles intact Neck: No stridor, no JVD, full neck ROM Lungs: Exam limited by body habitus clear to auscultation, No wheezing or rales. No increased work of breathing, no conversational dyspnea, no accessory muscle use, no nasal flaring. No respiratory distress noted Heart: Regular rate and rhythm, No murmurs, No rubs and No gallops, 2+ distal pulses (radial, femoral, posterior tibial) in all extremities Abdomen: Soft, there is no tenderness, rigidity, rebound or guarding, no obvious peritoneal signs, no palpable pulsatile abdominal masses, no auscultated abdominal bruit. Diffuse anasarca : No CVAT Extremities: 2+ pitting edema bilateral lower extremities Neuro: No focal neurological deficits, cranial nerves II through XII intact, 5/5 strength in all extremities. Intact sensation to light touch in all extremities, 2+ reflexes bilateral patella tendons. Normal gait. No ataxia. Skin: No rash or lesions noted MEDICAL DECISION MAKING: Chief Complaint: Shortness of breath External records reviewed: Imaging studies reviewed: Echocardiogram from March 18, 2023 shows ejection fraction 55% with stage II diastolic dysfunction. Duplex ultrasound from 07/17/2022 showed no evidence of acute DVT. Recent ED evaluation on for similar symptoms. Factors affecting care: COPD, CHF, hypertension, marijuana abuse Social determinants of health: Nicotine abuse History obtained from others: none Consults: Internal medicine ( Dr. Urrutia) MDM Narrative: Patient was initially hypotensive, tachypneic on 5 L nasal cannula. Lungs were difficult auscultate secondary to body habitus however there is no obvious rales or wheezes. Patient no increased work of breathing or conversational dyspnea I considered the following differential diagnosis: CHF exacerbation, COPD exacerbation, ACS, PE, anemia, electrolyte disturbance, arrhythmia I obtained a broad lab and imaging workup to further elucidate the etiology of the patient's complaints. ALL IMAGES (IF OBTAINED) HAVE BEEN PERSONALLY REVIEWED AND INTERPRETED BY MYSELF. EKG with normal sinus rhythm, normal axis, no intervals, no STEMI CBC without leukocytosis, severe anemia, no thrombocytopenia. BMP without evidence of significant electrolyte abnormalities, no anion gap, no acute kidney injury. Noted CKD which is downtrending from prior COVID, flu, RSV negative BNP baseline however elevated consistent with increased ventricular stretch Initial troponin elevated consistent with myocardial ischemia. Will send Delta troponin will give Aspirin I have personally reviewed the patient's chest x-ray. Chest x-ray is unremarkable for pulmonary edema, pneumothorax, pneumonia or focal cardiopulmonary abnormality. The synthesis of the patient's history, physical exam, labs images suggest likely CHF exacerbation secondary to NSTEMI. Given elevated troponin patient will be admitted for serial biomarkers, diuresis and cardiology consultation. This was discussed with internal medicine physician on-call who agree with admission, recommneded PCU obs. The patient and/or family, caregivers express understanding. The patient and/or family, caregivers agrees with the plan. Shared decision making: I will have a discussion with the patient and or visitors regarding risk/benefits of further testing or admission. They will be made aware of of the risk/benefits inherent in this decision they will be given the opportunity to voice understanding. Total critical care time today provided was at least 0 minutes. This excludes separately billable procedures. Critical care time (if documented) is secondary to the patient having high probability of clinically significant/life threatening deterioration in the patient's condition which required my urgent intervention. Impression: 1. Dyspnea 2. NSTEMI 3. History of CHF Dispo: admit to PCU obs Lab Data Labs: Laboratory Results - last 24 hr 03/21/23 21:27 WBC 10.0 RBC 4.34 Hgb 13.3 Hct 44.3 MCV 102.1 H MCH 30.6 MCHC 30.0 L RDW Std Deviation 52.8 H RDW Coeff of Fernando 13.8 Plt Count 115 L MPV 11.8 Immature Gran % (Auto) 0.500 Neut % (Auto) 83.5 H Lymph % (Auto) 8.0 L [place] % (Auto) 7.7 Eos % (Auto) 0.1 Baso % (Auto) 0.2 Absolute Neuts (auto) 8.3 H Absolute Lymphs (auto) 0.80 L Nucleated RBC % 0 Sodium 142 Potassium 3.9 Chloride 103 Carbon Dioxide 35.0 H Anion Gap 4 L BUN 30 H Creatinine 1.48 H Estim Creat Clear Calc 44.22 Est GFR (MDRD) Af Amer 48 L Est GFR (MDRD) Non-Af 40 L BUN/Creatinine Ratio 20.3 H Glucose 121 H Calcium 9.1 Troponin I High Sens 79 H B-Natriuretic Peptide 281.1 H Radiography Diagnostic Testing: Clinical Impression(s) from Imaging Studies Chest X-Ray 03/21/23 21:30 IMPRESSION: No radiographic evidence of acute cardiopulmonary disease. Electronically Signed: West Cantu MD at 22:21 EST Reading Location ID and State: [address] [place] [address] Tel , Service support , Discharge Plan Triage Chief Complaint: Shortness of Breath ED Provider: Nagi Melgar Dx/Rx/DC Orders Prescriptions: No Action aspirin 325 MG tablet,delayed release (DR/EC) 325 mg PO DAILY Hold Instructions: Ordered metoprolol tartrate 50 mg tablet 75 mg PO BID Patient Comments: take 1 AND 1/2 tablet by mouth twice a day aspirin [Adult Low Dose Aspirin] 81 mg tablet,delayed release (DR/EC) 81 mg PO DAILY lisinopril 20 mg tablet 20 mg PO DAILY Patient Comments: take 1 tablet by mouth once daily potassium 99 mg tablet 99 mg PO DAILY umeclidinium-vilanterol [Anoro Ellipta] inhalation albuterol sulfate [Ventolin HFA] .Route furosemide 40 mg tablet 40 mg PO DAILY Qty: 30 2RF metoprolol tartrate 25 mg tablet 25 mg PO BID Qty: 30 2RF Primary Care Provider: Imtiaz Marie Referrals: Imtiaz Marie MD [Primary Care Provider] -
--- NOTE | 2023-03-21 21:30 | RAD_ITS ---
INDICATION: Shortness of breath EXAMINATION/TECHNIQUE: X-RAY - XR Chest 1 View COMPARISON: March 17, 2023. FINDINGS: LINES/DEVICES: None. LUNGS: No consolidation, edema or effusion. No pneumothorax. MEDIASTINUM AND CARDIOVASCULAR STRUCTURES: Cardiac silhouette not enlarged. BONES AND SOFT TISSUES: Unremarkable. RAD/Chest 1 View (Portable) IMPRESSION: No radiographic evidence of acute cardiopulmonary disease. Electronically Signed: West Cantu MD at 22:21 EST ,
[2023-03-21 22:09] LABS: Absolute Neutrophil Count 8.3 X10^3/uL (2.0-7.7); Basophil# 0.02 X10^3/uL; Basophil% 0.2 % (0-1); Eosinophil# 0.01 X10^3/uL; Eosinophils% 0.1 % (0-5); Hematocrit 44.3 % (37-47); Hemoglobin 13.3 g/dL (12.0-15.0); Mean Corpuscular Hgb 30.6 pg (27.0-32.0); Mean Corpuscular Volume 102.1 fL (81-99); Mean Platelet Vol. 11.8 fl (6.2-12.0); Monocyte# 0.77 X10^3/uL; Monocyte% 7.7 % (0-10); NRBC Flagged by Analyzer 0 % (0-5); Neutrophil # 8.32 X10^3/uL (2.7-7.7); Neutrophil % 83.5 % (47-70); Platelet Count 115 K/mm3 (150-450); RBC Distribution Width CV 13.8 % (11.6-14.6); RBC Distribution Width SD 52.8 fl (35.1-43.9); Red Blood Count 4.34 M/mm3 (4.2-5.4)
[2023-03-21 22:13] LABS: Anion Gap 4 (5-15); BUN 30 mg/dL (7-18); BUN/Creat Ratio 20.3 RATIO (10-20); Calcium,Total 9.1 mg/dL (8.5-10.1); Chloride 103 mmol/L (98-107); Creatinine, Serum 1.48 mg/dL (0.55-1.02); EST Glomerular Filtration Rate 40 mL/min (>60); Est Glom Filt Rate - Afr Amer 48 mL/min (>60); Estimated Creatinine Clearance 44.22 ml/min; Glucose 121 mg/dL (74-106); POSITIVE COUNT YES; POSITIVE DIFFERENTIAL YES; POSITIVE MORPHOLOGY YES; Potassium 3.9 mmol/L (3.5-5.1); Sodium Level 142 mmol/L (136-145); Troponin-I HS 79 pg/mL (3.0-54.0)
[2023-03-21 22:56] LABS: BNP,B-Type NATRIURETIC PEPTIDE 281.1 pg/mL (0-100)
[2023-03-21 23:14] VITALS: BP 97/62; PULSE 62; RESP 17; TEMP 36.4; O2SAT 95
--- NOTE | 2023-03-21 23:32 | PCM.HP.STD ---
HPI - General General Date of Admission: 03/22/23 Date of Service: 03/21/23 Chief Complaint: Worsening shortness of breath and generalized edema HPI Narrative ROXIE BHARDWAJ, is a 52 F who presented to [facility] ED on 03/21/2023 with worsening shortness of breath and generalized edema. Patient seen at bedside in the ED. Patient was very fatigued on my interview, was laying comfortably in bed at 45 degree angle but had short answers to questions and generally did not open her eyes much during my interview. Patient notably was recently hospitalized at [facility] from 03/17 to 03/19 for acute on chronic respiratory failure and reported worsening bilateral lower extremity edema. Patient was treated with IV diuresis. Echo showed EF 55% with stage II diastolic dysfunction, but was a technically difficult study due to patient's body habitus. Patient is chronically on 5 L nasal cannula at home. Patient was discharged home on her home Lasix 40 mg daily, states she was taking this as prescribed. Patient states today that she generally feels fatigued with mild worsening shortness of breath and continues to feel more swollen than normal. Does state that she usually has some shortness of breath with generalized swelling, but does not feel like she is back to her normal. States she has not been eating or drinking much since discharge home a few days ago. She denies any chest pain, abdominal pain or discomfort. Denies any lightheadedness or dizziness at rest. No other acute concerns this time. [facility] Medical History Adrenal mass Atrial fibrillation with rapid ventricular response (06/29/19) Essential hypertension Heroin use disorder, moderate, in early remission Marijuana abuse Nicotine abuse Paroxysmal atrial fibrillation Paroxysmal supraventricular tachycardia Home Medications aspirin 325 mg tablet,delayed release 325 mg PO DAILY 08/21/19 [History Last Taken Unknown] albuterol sulfate .Route 03/17/23 [History Last Taken Unknown] aspirin 81 mg tablet,delayed release (Adult Low Dose Aspirin) 81 mg PO DAILY 03/17/23 [History Last Taken Unknown] lisinopril 20 mg tablet 20 mg PO DAILY 03/17/23 [History Last Taken Unknown] metoprolol tartrate 50 mg tablet 75 mg PO BID 03/17/23 [History Last Taken Unknown] potassium 99 mg tablet 99 mg PO DAILY 03/17/23 [History Last Taken Unknown] umeclidinium-vilanterol 1 inh inhalation DAILY 03/17/23 [History Last Taken Unknown] furosemide 40 mg tablet 40 mg PO DAILY #30 tabs 03/19/23 [Rx Last Taken Unknown] metoprolol tartrate 25 mg tablet 25 mg PO BID #30 tabs 03/19/23 [Rx Last Taken Unknown] albuterol sulfate 2.5 mg/3 mL (0.083 %) solution for nebulization 2.5 mg inhalation Q4H PRN shortness of breath or wheezing 03/22/23 [History Last Taken Unknown] Allergy/AdvReac Type Severity Reaction Status Date / Time naproxen Allergy Shortness Verified 03/21/23 20:54 of breath Opioids - Morphine Analogues AdvReac Other Verified 03/21/23 20:54 Surgical History History of cardioversion (06/29/19) Social History Smoking Status: Current every day smoker tobacco type: cigarettes substance use type: opiates caffeine: Yes Type: coffee and other ROS Constitutional Constitutional: Reports fatigue and malaise; Denies chills, fever(s) or weakness Eyes Eyes: Denies change in vision Cardiovascular Cardiovascular: Reports dyspnea on exertion and edema; Denies chest pain Respiratory/Chest Respiratory/Chest: Reports shortness of breath with exertion; Denies cough, shortness of breath at rest or wheezing Gastrointestinal Gastrointestinal: Denies abdominal pain Genitourinary Genitourinary: Denies dysuria Neurologic Neurologic: Denies dizziness, focal weakness or headache(s) Psychiatric Psychiatric: Reports anxiety Vital Signs Vital Signs Vital Signs: 03/21/23 20:49 03/21/23 20:57 03/21/23 20:58 Temperature 97.6 F L 97.6 F L Temperature Source Temporal Temporal Pulse Rate 67 65 Respiratory Rate 22 H 22 H Respiratory Effort Short of Breath Labored Respiratory Depth Normal Respiratory Pattern Normal Blood Pressure 98/45 L Blood Pressure Mean 62 Pulse Ox 96 95 Oxygen Delivery Method Nasal Cannula Nasal Cannula Nasal Cannula Oxygen Flow Rate (L/min) 5 5 5 03/21/23 21:29 03/21/23 23:14 Temperature 97.5 F L Temperature Source Temporal Pulse Rate 62 Respiratory Rate 17 Respiratory Effort Respiratory Depth Respiratory Pattern Blood Pressure 97/62 Blood Pressure Mean 73 Pulse Ox 95 Oxygen Delivery Method Nasal Cannula Nasal Cannula Oxygen Flow Rate (L/min) 5 5 Weight Weight: 150.2 kg Body Mass Index (BMI) 51.8 Physical Exam Const alert and no apparent distress Constitutional Narrative: Middle-age female, morbidly obese, laying in bed at about 45 degree angle, appears very fatigued and answering questions with short soft responses, otherwise in no acute distress. General Appearance: cooperative HEENT normocephalic, head/scalp atraumatic, hearing grossly normal bilaterally and nasal mucous membranes and turbinates normal HEENT Narrative: Dry mucous membranes. Eyes PERRL, EOMs intact bilaterally and conjunctivae normal Neck full ROM, no lymphadenopathy and supple Lymph Lymphatic: no lymphadenopathy noted Chest inspection of chest normal Resp Resp Narrative: Breath sounds difficult to auscultate given body habitus. No significant wheezing or crackles noted. Satting in mid 90s on 5 L nasal cannula, no increased work of breathing noted. Cardio regular rate, regular rhythm, no murmurs and peripheral pulses 2+ throughout GI normal to inspection, nondistended, normoactive bowel sounds, soft to palpation, non-tender and non-distended Back/Spine normal ROM Extremity Extremity Narrative: Skin on lower legs appears taut but no pitting edema noted. Patient notably has significant tenderness to palpation in lower legs bilaterally. Skin no rashes or lesions noted Neuro moves all extremities and no focal motor deficits Psych Mood & Affect: anxious Results Lab / Micro Data 03/21/23 21:27 03/21/23 21:27 Labs: Laboratory Results - last 24 hr 03/21/23 21:27: WBC 10.0, RBC 4.34, Hgb 13.3, Hct 44.3, MCV 102.1 H, MCH 30.6, MCHC 30.0 L, RDW Std Deviation 52.8 H, RDW Coeff of Fernando 13.8, Plt Count 115 L, MPV 11.8, Immature Gran % (Auto) 0.500, Neut % (Auto) 83.5 H, Lymph % (Auto) 8.0 L, [place] % (Auto) 7.7, Eos % (Auto) 0.1, Baso % (Auto) 0.2, Absolute Neuts (auto) 8.3 H, Absolute Lymphs (auto) 0.80 L, Nucleated RBC % 0, Sodium 142, Potassium 3.9, Chloride 103, Carbon Dioxide 35.0 H, Anion Gap 4 L, BUN 30 H, Creatinine 1.48 H, Estim Creat Clear Calc 44.22, Est GFR (MDRD) Af Amer 48 L, Est GFR (MDRD) Non-Af 40 L, BUN/Creatinine Ratio 20.3 H, Glucose 121 H, Calcium 9.1, Troponin I High Sens 79 H, B-Natriuretic Peptide 281.1 H Micro: Microbiology 03/21/23 21:27 Mucosa - Nose SARS-CoV-2, Influenza & RSV (PCR) - Final Imagaing Radiology Impression Chest X-Ray 03/21/23 21:30 IMPRESSION: No radiographic evidence of acute cardiopulmonary disease. Electronically Signed: West Cantu MD at 22:21 EST Reading Location ID and State: [facility] / [place] Tel , Service support , Assessment & Plan Assessment/Plan (1) Elevated troponin: (2) Congestive heart failure: PLAN: Plan Patient is a 52-year-old female who presented to [facility] ED on 03/21/2023 with worsening shortness of breath and generalized edema. 1. History of HFpEF, suspected intravascular hypovolemia from recent overdiuresis Recent admission from 03/17 to 03/19 for heart failure exacerbation. Echo 03/17 showed EF 55%, stage II diastolic dysfunction. Hypoxia improved with IV diuresis, patient discharged home on p.o. Lasix 40 mg daily. Patient with mild hypotension on arrival to ED on 03/21. Chest x-ray with no evidence of volume overload. Creatinine appears stable at baseline. Elevated troponins as noted below. Suspect patient may be slightly dry due to recent heavy diuresis, but difficult to ascertain volume status due to body habitus. ? Admit under observation status to PCU. Will give 500 cc LR bolus over 2 hours. Monitor a.m. labs, respiratory status, blood pressure. Can consider cardiology consult as needed. Holding home Lasix, Lopressor and lisinopril for now. 2. Elevated troponins ? Troponin trend 79 to 81 in ED. No chest pain, EKG with no acute ST changes. Suspect mild demand ischemia due to mild hypovolemia as noted above. Small fluid bolus given as above. Trend third troponin. 3. Chronic hypoxic respiratory failure ? On home 4 to 5 L nasal cannula, notably qualified for this level of oxygen on discharge on 03/19. O2 saturation stable at 5 L nasal cannula in the ED, chest x-ray with no evidence of volume overload. Stable. 4. Super morbid obesity, debility, difficult social situation BMI 51 on admit. Case management followed on recent admission. Per patient's friend, patient lives alone in a rented home with poor living conditions. Patient does not move well given her body habitus, does not leave her house much. Also does not usually allow people into her home. ? PT/OT/case management consulted. Super morbid obesity complicates patient's hospital course, expected recovery and prognosis. 5. Generalized fatigue with somnolence, history of substance abuse ? Patient appeared very fatigued with a degree of somnolence on my interview in the ED. Does have known history of heroin abuse, as well as marijuana abuse and nicotine abuse. Urine drug screen ordered. DVT prophylaxis: Lovenox twice daily CODE STATUS: Full code, unverified Expected disposition: TBD Total clinical time spent by myself addressing the patient's medical issues, reviewing all the data, and collaborating with patient's care team: 55 minutes. Charges/Coding Visit Charges Inpatient E&M: 16582 Init Hosp L2
[2023-03-21 23:41] VITALS: BP 110/63; PULSE 71; RESP 18; O2SAT 96
[2023-03-21] MEDS: Aspirin 325 MG Tablet PO (23:42)
[2023-03-22] VITALS (11 sets, daily range): BP systolic 108–120; BP diastolic 53–76; PULSE 66–88; RESP 12–18; TEMP 36.1–36.7; O2SAT 86–99; BMI 51.4; BMI 51.7
[2023-03-22 00:10] LABS: Troponin-I HS 81 pg/mL (3.0-54.0)
[2023-03-22] MEDS: Lactated Ringers 1,000 ML 250 ML IV (02:15)
[2023-03-22 03:39] LABS: Troponin-I HS 74 pg/mL (3.0-54.0)
[2023-03-22 05:18] LABS: Hematocrit 48.1 % (37-47); Hemoglobin 14.3 g/dL (12.0-15.0); Mean Corp Hgb Conc 29.7 g/dL (32-36); Mean Corpuscular Hgb 30.8 pg (27.0-32.0); Mean Corpuscular Volume 103.7 fL (81-99); Mean Platelet Vol. 12.2 fl (6.2-12.0); Platelet Count 113 K/mm3 (150-450); RBC Distribution Width CV 13.7 % (11.6-14.6); RBC Distribution Width SD 52.9 fl (35.1-43.9); Red Blood Count 4.64 M/mm3 (4.2-5.4); White Blood Count 7.4 K/mm3 (4.4-11.0)
[2023-03-22 05:29] LABS: Anion Gap 8 (5-15); BUN 28 mg/dL (7-18); BUN/Creat Ratio 20.6 RATIO (10-20); Calcium,Total 8.5 mg/dL (8.5-10.1); Chloride 104 mmol/L (98-107); Creatinine, Serum 1.36 mg/dL (0.55-1.02); EST Glomerular Filtration Rate 44 mL/min (>60); Est Glom Filt Rate - Afr Amer 53 mL/min (>60); Estimated Creatinine Clearance 48.12 ml/min; Glucose 127 mg/dL (74-106); Potassium 4.1 mmol/L (3.5-5.1); Sodium Level 144 mmol/L (136-145)
[2023-03-22 06:40] LABS: Amphetamine Urine VISTA NEGATIVE (<1000 ng/mL); Barbiturate Urine VISTA NEGATIVE (< 200 ng/mL); Benzodiazepine Urine VISTA NEGATIVE (< 200 ng/mL); Cocaine Urine VISTA NEGATIVE (< 300 ng/mL); Ecstacy Urine VISTA NEGATIVE (< 500 ng/mL); Methadone Urine VISTA NEGATIVE (< 300 ng/mL); PCP Urine VISTA NEGATIVE (< 25 ng/mL); THC Urine VISTA NEGATIVE (< 50 ng/mL); Vista UDS pH Range 5
--- NOTE | 2023-03-22 08:03 | PN.HOSP_ITS ---
Reason for Visit Reason for Visit: Diagnoses Heart failure, unspecified (03/22/23) Other specified abnormal findings of blood chemistry (03/22/23) Objective Data Objective Data Vital Signs: Vital Signs Temp Pulse Resp BP Pulse Ox O2 Del Method O2 Flow Rate 97.8 F 76 16 108/71 99 Nasal Cannula 5 03/22/23 02:39 03/22/23 02:39 03/22/23 02:39 03/22/23 02:39 03/22/23 02:39 03/22/23 04:54 03/22/23 04:54 Oxygen Flow Rate (L/min) 5 Oxygen Delivery Method Nasal Cannula Weight: 330 lb 11.094 oz Body Mass Index (BMI) 51.7 Intake & Output: Intake and Output for Last 24 Hours 03/20/23 03/21/23 03/22/23 23:59 23:59 23:59 Intake Total 1220 / 1220 Output Total Balance 1210 / 1210 Lab / Micro Data 03/22/23 03:10 03/22/23 03:10 Labs: Laboratory Results - last 24 hr 03/21/23 21:27: WBC 10.0, RBC 4.34, Hgb 13.3, Hct 44.3, MCV 102.1 H, MCH 30.6, MCHC 30.0 L, RDW Std Deviation 52.8 H, RDW Coeff of Fernando 13.8, Plt Count 115 L, MPV 11.8, Immature Gran % (Auto) 0.500, Neut % (Auto) 83.5 H, Lymph % (Auto) 8.0 L, [place] % (Auto) 7.7, Eos % (Auto) 0.1, Baso % (Auto) 0.2, Absolute Neuts (auto) 8.3 H, Absolute Lymphs (auto) 0.80 L, Nucleated RBC % 0, Sodium 142, Potassium 3.9, Chloride 103, Carbon Dioxide 35.0 H, Anion Gap 4 L, BUN 30 H, Creatinine 1.48 H, Estim Creat Clear Calc 44.22, Est GFR (MDRD) Af Amer 48 L, Est GFR (MDRD) Non-Af 40 L, BUN/Creatinine Ratio 20.3 H, Glucose 121 H, Calcium 9.1, Troponin I High Sens 79 H, B-Natriuretic Peptide 281.1 H 03/21/23 23:18: Troponin I High Sens 81 H 03/22/23 03:10: WBC 7.4, RBC 4.64, Hgb 14.3, Hct 48.1 H, MCV 103.7 H, MCH 30.8, MCHC 29.7 L, RDW Std Deviation 52.9 H, RDW Coeff of Fernando 13.7, Plt Count 113 L, MPV 12.2 H, Sodium 144, Potassium 4.1, Chloride 104, Carbon Dioxide 32.0, Anion Gap 8, BUN 28 H, Creatinine 1.36 H, Estim Creat Clear Calc 48.12, Est GFR (MDRD) Af Amer 53 L, Est GFR (MDRD) Non-Af 44 L, BUN/Creatinine Ratio 20.6 H, Glucose 127 H, Calcium 8.5, Troponin I High Sens 74 H 03/22/23 06:25: Urine Opiates Screen NEGATIVE, Urine Methadone Screen NEGATIVE, Ur Barbiturates Screen NEGATIVE, Ur Phencyclidine Scrn NEGATIVE, Ur Amphetamines Screen NEGATIVE, MDMA (Ecstasy) Screen NEGATIVE, U Benzodiazepines Scrn NEGATIVE, Urine Cocaine Screen NEGATIVE, U Cannabinoids Screen NEGATIVE, Ur Drug Screen Comment Micro: Microbiology 03/21/23 21:27 Mucosa - Nose SARS-CoV-2, Influenza & RSV (PCR) - Final Radiography Diagnostic Testing: Radiology Impression Chest X-Ray 03/21/23 21:30 IMPRESSION: No radiographic evidence of acute cardiopulmonary disease. Electronically Signed: West Cantu MD at 22:21 EST Reading Location ID and State: [facility] / [place] Tel , Service support , Physical Exam Narrative Seen and examined. Patient is physically deconditioned. She states she wakes up in the night but when asked she she denies feeling of choking or drowning or apneic episodes. I feel she get restless at night and wakes up. She might have obstructive sleep apnea or obesity hypoventilation syndrome because of morbid obesity. She has wheezing. General: Alert, Oriented x3, Cooperative, BMI 51.8 kg/m? HEENT: Atraumatic, PERRLA, EOMI, Normocephalic Oral: Deep oropharyngeal structures could not be visualized. No Gingival or Mucosal Lesions/ Ulcerations Neck: Supple, No JVD, Negative Carotid Bruits Lungs: Air entry diminished in bilateral lung bases. Mild bilateral wheezing. Cardiovascular: Regular rate, Regular Rhythm, Normal S1, Normal S2, No murmurs Abdomen: Bowel Sounds Present, Soft, Non Tender, Non-Distended : No renal angle tenderness. No suprapubic tenderness. Extremities: No edema, Capillary Refill Less than 3 Seconds Skin: Skin on lower legs appears., nonpitting edema. Subcutaneous fat. Musculoskeletal: No Tenderness to Palpation of Joints or Extremities Neurological: Cranial nerves II-XII grossly intact, DTR 2+/4. No acute focal neurological deficit. Psych/Mental Status: Flat affect, anxious. Const Constitutional Narrative: Middle-age female, morbidly obese, laying in bed at about 45 degree angle, appears very fatigued and answering questions with short soft responses, otherwise in no acute distress. Resp Resp Narrative: Breath sounds difficult to auscultate given body habitus. No significant wheezing or crackles noted. Satting in mid 90s on 5 L nasal cannula, no increased work of breathing noted. Extremity Extremity Narrative: Skin on lower legs appears taut but no pitting edema noted. Patient notably has significant tenderness to palpation in lower legs bilaterally. Assessment & Plan Assessment/Plan (1) Elevated troponin: (2) Congestive heart failure: QUALIFIERS: Heart failure type: diastolic Heart failure chronicity: chronic Qualified Code(s): I50.32 - Chronic diastolic (congestive) heart failure PLAN: Plan Patient is a 52-year-old female who presented to [facility] ED on 03/21/2023 with worsening shortness of breath and generalized edema. He was only patient uses 5 L of oxygen at home but for last several days she feels more short of breath and swelling. Denies chest pain palpitation. 1. Chronic HFpEF, suspected intravascular hypovolemia from recent overdiuresis Recent admission from 03/17 to 03/19 for heart failure exacerbation. Echo 03/17 showed EF 55%, stage II diastolic dysfunction. Hypoxia improved with IV diuresis, patient discharged home on p.o. Lasix 40 mg daily. Patient with mild hypotension on arrival to ED on 03/21. Chest x-ray with no evidence of volume overload. Creatinine appears stable at baseline. Elevated troponins as noted below. It was suspected that patient is dry/intravascular volume depletion due to aggressive diuresis. Patient is admitted in PCU. Holding home Lasix, Lopressor and lisinopril for now. Monitor without Lasix and IV fluid. 2. Elevated troponins ? Troponin trend 79 to 81 in ED. No chest pain, EKG with no acute ST changes. Suspect mild demand ischemia due to mild hypovolemia as noted above. Small fluid bolus given as above. Trend third troponin. Serial troponins are flat and does not show significant delta increase. 7981 an d 74. BNP elevated, 281. MEGHAN most likely due to diuretic on CKD stage IIIA: Her baseline creatinine runs around 1.6-1.7. She was discharged last time on . Holding Lasix, creatinine improved to 1.36. 3. Chronic hypoxic respiratory failure ? On home 4 to 5 L nasal cannula, currently she is on 5 to 6 L of oxygen. Chest x-ray with no evidence of volume overload. BiPAP at night. 4. Super morbid obesity, debility, difficult social situation BMI 51 on admit. Case management followed on recent admission. Per patient's friend, patient lives alone in a rented home with poor living conditions. Patient does not move well given her body habitus, does not leave her house much. Also does not usually allow people into her home. ? PT/OT/case management consulted. Super morbid obesity complicates patient's hospital course, expected recovery and prognosis. 5. Generalized fatigue with somnolence, history of substance abuse ? Patient appeared very fatigued with a degree of somnolence on my interview in the ED. Does have known history of heroin abuse, as well as marijuana abuse and nicotine abuse. Urine drug screen ordered. DVT prophylaxis: Lovenox twice daily CODE STATUS: Full code, unverified Charges/Coding Visit Charges Inpatient E&M: 29128 Subs Hosp L2
[2023-03-22] MEDS: Aspirin E.C. 81 MG Tablet PO (08:44)
[2023-03-22] MEDS: Enoxaparin 40 MG/0.4 ML Syringe SC ×2 (08:44→22:27)
[2023-03-22 13:31] LABS: Mucous, Urine 0 SEEN /hpf (<or=2+); Red Blood Cells-Urine 0 SEEN /hpf (0-5); White Blood Cells 0 SEEN /hpf (0-5)
[2023-03-22 13:34] LABS: Color, Urine Yellow (Yellow); Glucose, Dipstick Normal (Normal); Ketone-Dipstick 5 mg/dl (Negative); Leukocyte Esterase-Dipstick Negative /ul (Negative); Nitrite-Dipstick Negative (Negative); Occult Blood-Urine Negative /ul (Negative); Protein-Dipstick 15 mg/dl (Negative); Specific Gravity, Urine 1.025 (1.002-1.030); Urine Bilirubin Dipstick Negative (Negative); Urine Clarity Clear (Clear); Urine Urobilinogen Normal (Normal)
[2023-03-22 13:56] LABS: Bacteria RARE /hpf (None Seen); Squamous Epithelial Cells - UA 0-5 SEEN /hpf (5-10)
[2023-03-22] MEDS: busPIRone 5 MG Tablet PO ×2 (16:30→22:26)
[2023-03-22] MEDS: Ipratropium/Albuterol Sulfate 3 ML AMPUL.NEB INHALATION (21:45)
[2023-03-22] MEDS: Metoprolol Tartrate 25 MG Tablet PO (22:26)
[2023-03-22] MEDS: Acetaminophen 325 MG Tablet 650 MG PO (22:27)
[2023-03-23] VITALS (11 sets, daily range): BP systolic 99–134; BP diastolic 49–72; PULSE 62–165; RESP 12–20; TEMP 36.3–36.6; O2SAT 92–97; BMI 52.4
[2023-03-23] MEDS: busPIRone 5 MG Tablet PO (05:44)
[2023-03-23] MEDS: Ipratropium/Albuterol Sulfate 3 ML AMPUL.NEB INHALATION (07:03)
--- NOTE | 2023-03-23 08:54 | EKG12_ITS ---
Test Reason : DYSRHYTHMIA Blood Pressure : / mmHG Vent. Rate : 065 BPM Atrial Rate : 065 BPM P-R Int : 148 ms QRS Dur : 084 ms QT Int : 392 ms P-R-T Axes : 057 -04 019 degrees QTc Int : 407 ms Normal sinus rhythm Normal ECG Confirmed by DOMINIC HEREDIA, JOSEY ([id number]), video editor KAREN CHAKRABORTY ([id number]) on 03/25/2023 8:30:28 AM Referred By: Nagi Melgar Confirmed By:JOSEY ALFARO MD
[2023-03-23] MEDS: Aspirin E.C. 81 MG Tablet PO (08:56)
[2023-03-23] MEDS: Metoprolol Tartrate 25 MG Tablet PO (08:56)
[2023-03-23] MEDS: Enoxaparin 40 MG/0.4 ML Syringe SC (08:57)
[2023-03-23] MEDS: Furosemide 40 MG Tablet PO (08:57)
[2023-03-23] MEDS: Acetaminophen 325 MG Tablet 650 MG PO ×3 (09:01→22:13)
[2023-03-23 09:02] LABS: Anion Gap 1 (5-15); BUN 30 mg/dL (7-18); BUN/Creat Ratio 27.5 RATIO (10-20); Calcium,Total 9.1 mg/dL (8.5-10.1); Chloride 105 mmol/L (98-107); Creatinine, Serum 1.09 mg/dL (0.55-1.02); EST Glomerular Filtration Rate 56 mL/min (>60); Est Glom Filt Rate - Afr Amer 68 mL/min (>60); Estimated Creatinine Clearance 60.05 ml/min; Glucose 94 mg/dL (74-106); Potassium 3.8 mmol/L (3.5-5.1); Sodium Level 144 mmol/L (136-145)
--- NOTE | 2023-03-23 09:16 | PCM.PN.HOSP ---
Reason for Visit Reason for Visit: Diagnoses Chronic diastolic (congestive) heart failure (03/22/23) Heart failure, unspecified (03/22/23) Other specified abnormal findings of blood chemistry (03/22/23) Objective Data Objective Data Vital Signs: Vital Signs Temp Pulse Resp BP Pulse Ox O2 Del Method O2 Flow Rate 97.5 F L 163 H 18 125/72 H 97 Nasal Cannula 5 03/23/23 08:54 03/23/23 08:56 03/23/23 08:54 03/23/23 08:54 03/23/23 08:54 03/23/23 09:05 03/23/23 09:05 FiO2 40 03/23/23 02:30 Oxygen Flow Rate (L/min) 5 Oxygen Delivery Method Nasal Cannula Weight: 335 lb 1.642 oz Body Mass Index (BMI) 52.4 Intake & Output: Intake and Output for Last 24 Hours 03/21/23 03/22/23 03/23/23 23:59 23:59 23:59 Intake Total 1780 / 1800 Output Total 260 / 260 150 / 150 Balance 1520 / 1540 -130 / -130 Lab / Micro Data 03/22/23 03:10 03/23/23 08:20 Labs: Laboratory Results - last 24 hr 03/22/23 02:57: Urine Color Yellow, Urine Clarity Clear, Urine pH 6.0, Ur Specific [place] 1.025, Urine Protein 15 H, Urine Glucose (UA) Normal, Urine Ketones 5 H, Urine Occult Blood Negative, Urine Nitrite Negative, Urine Bilirubin Negative, Urine Urobilinogen Normal, Ur Leukocyte Esterase Negative, Urine RBC 0 SEEN, Urine WBC 0 SEEN, Ur Squamous Epith Cells 0-5 SEEN, Urine Bacteria RARE, Urine Mucus 0 SEEN 03/23/23 08:20: Sodium 144, Potassium 3.8, Chloride 105, Carbon Dioxide 38.0 H, Anion Gap 1 L, BUN 30 H, Creatinine 1.09 H, Estim Creat Clear Calc 60.05, Est GFR (MDRD) Af Amer 68, Est GFR (MDRD) Non-Af 56 L, BUN/Creatinine Ratio 27.5 H, Glucose 94, Calcium 9.1 Micro: Microbiology 03/21/23 21:27 Mucosa - Nose SARS-CoV-2, Influenza & RSV (PCR) - Final Physical Exam Narrative Seen and examined. In the morning patient very anxious and restless. She has returned to page questions to ask me about her tremors, could not sleep last night. She also has imbalance and disequilibrium and could not balance herself because of morbid obesity Patient is physically deconditioned. I feel she get restless at night and wakes up. She might have obstructive sleep apnea or obesity hypoventilation syndrome because of morbid obesity. She has wheezing. In the morning she went into A-fib with RVR she has history of paroxysmal A-fib: Physical exam General: Alert, Oriented x3, Cooperative, BMI 51.8 kg/m? HEENT: Atraumatic, PERRLA, EOMI, Normocephalic Oral: Deep oropharyngeal structures could not be visualized. No Gingival or Mucosal Lesions/ Ulcerations Neck: Supple, No JVD, Negative Carotid Bruits Lungs: Air entry diminished in bilateral lung bases. Mild bilateral wheezing. Cardiovascular: Regular rate, Regular Rhythm, Normal S1, Normal S2, No murmurs Abdomen: Bowel Sounds Present, Soft, Non Tender, Non-Distended : No renal angle tenderness. No suprapubic tenderness. Extremities: No edema, Capillary Refill Less than 3 Seconds Skin: Skin tight and tense on lower legs., nonpitting edema. Subcutaneous fat. Musculoskeletal: No Tenderness to Palpation of Joints or Extremities, ROM restricted due to morbid obesity. Neurological: Cranial nerves II-XII grossly intact, DTR 2+/4. No acute focal neurological deficit. Tremors on arm arm and upper extremities on lifting at shoulder level. Psych/Mental Status: Flat affect, anxious. Assessment & Plan Assessment/Plan (1) Elevated troponin: (2) Congestive heart failure: QUALIFIERS: Heart failure chronicity: chronic Heart failure type: diastolic Qualified Code(s): I50.32 - Chronic diastolic (congestive) heart failure PLAN: Plan Patient is a 52-year-old female who presented to [facility] ED on 03/21/2023 with worsening shortness of breath and generalized edema. He was only patient uses 5 L of oxygen at home but for last several days she feels more short of breath and swelling. Denies chest pain palpitation. 1. Chronic HFpEF, suspected intravascular hypovolemia from recent overdiuresis Recent admission from 03/17 to 03/19 for heart failure exacerbation. Echo 03/17 showed EF 55%, stage II diastolic dysfunction. Hypoxia improved with IV diuresis, patient discharged home on p.o. Lasix 40 mg daily. Patient with mild hypotension on arrival to ED on 03/21. Chest x-ray with no evidence of volume overload. Creatinine appears stable at baseline. Elevated troponins as noted below. It was suspected that patient is dry/intravascular volume depletion due to aggressive diuresis. Patient is admitted in PCU. Holding home Lasix, Lopressor and lisinopril for now. Monitor without Lasix and IV fluid. 2. A-fib with RVR history of paroxysmal A-fib and troponin elevation probably due to acute myocardial injury from A-fib RVR/increased cardiac demand: No chest pain, EKG with no acute ST changes. Serial troponins are flat and does not show significant delta increase. 79, 81 and 74. BNP elevated, 281. Patient ranging to A-fib in the morning with heart rate 140s to 60 department. Patient is very anxious and restless and could not sleep last night. Her heart rate is 162 quadrant on EKG. Cardizem 20 mg IV bolus slow ordered. Patient on metoprolol 100 mg twice daily. Eliquis 5 mg twice daily for stroke prophylaxis. Patient Lovenox 40 mg twice daily discontinued 03/23: Patient heart rate is still in 150s after given Cardizem 20 mg IV bolus. Will wait for 2 hours as metoprolol oral was just given. If heart rate is still remains high will need addition of Cardizem. MEGHAN most likely due to diuretic on CKD stage IIIA: Her baseline creatinine runs around 1.6-1.7. She was discharged last time on . Holding Lasix, creatinine improved to 1.36. 03/23 MEGHAN resolved. Creatinine 1.09 BUN 30. Lasix resumed. 3. Chronic hypoxic respiratory failure ? On home 4 to 5 L nasal cannula, currently she is on 5 to 6 L of oxygen. Chest x-ray with no evidence of volume overload. BiPAP at night. 4. Super morbid obesity, debility, difficult social situation BMI 51 on admit. Case management followed on recent admission. Per patient's friend, patient lives alone in a rented home with poor living conditions. Patient does not move well given her body habitus, does not leave her house much. Also does not usually allow people into her home. ? PT/OT/case management consulted. Super morbid obesity complicates patient's hospital course, expected recovery and prognosis. 5. Generalized fatigue with somnolence, history of substance abuse ? Patient appeared very fatigued with a degree of somnolence on my interview in the ED. Does have known history of heroin abuse, as well as marijuana abuse and nicotine abuse. Urine drug screen ordered. 6. Patient also complaining of tremors upper extremity arms forearms hands minutes of the bed. She feels also on lower legs. She wanted neuroconsult therefore [facility] teleneurology consult requested. I think her tremors are related to her anxiety and restlessness and is more positional on lifting her arms and at shoulder level. Patient was started on BuSpar yesterday which does increase to 10 mg 3 times daily. Started on escitalopram 10 mg daily and Xanax 0.25 mg 3 times daily as needed for anxiety attack. DVT prophylaxis: Lovenox twice daily CODE STATUS: Full code, unverified Charges/Coding Addendum Addendum: Total time of the visit including total time spent in counseling or coordination of care, (more than 50% of the total time, spent in obtaining medical information from nurses and other ancillary care providers,explaining to the patient about labs, imaging, diagnosis and management of active complex medical conditions) including A-fib with RVR, respiratory problem, anxiety and tremors, review of labs and imaging is 40 minutes. Visit Charges Inpatient E&M: 41287 Subs Hosp L3
[2023-03-23] MEDS: ALPRAZolam 0.5 MG Tablet PO (09:27)
[2023-03-23] MEDS: Polyethylene Glycol 3350 17 GM PACKET PO (09:27)
[2023-03-23] MEDS: Senna/Docusate Sodium 1 Tablet 2 TABLET PO ×2 (09:27→22:07)
[2023-03-23] MEDS: Escitalopram Oxalate 10 MG Tablet PO (09:27)
[2023-03-23] MEDS: dilTIAZem 25 MG/5 ML Vial 20 MG IV BOLUS (09:28)
[2023-03-23] MEDS: Metoprolol Tartrate 25 MG Tablet 75 MG PO (10:12)
--- NOTE | 2023-03-23 13:01 | NEURO.CONS ---
Assessment and Plan: Neuro Assessment/Plan ROXIE BHARDWAJ is a 52 F with a past medical history of CHF, being evaluated by Teleneurology for tremors shortly after fall. She has some baseline minimal tremors but they have worsened since the fall and she is having more difficulty walking. She also endorses these jerking movements when it causes her hand sometimes to hit her. Exam consistent with a fine physiologic tremor and presence of asterixis/negative myoclonus. Labwork suggestive of improving MEGHAN, mild uremia. Ddx includes metabolic abnormalities, deconditioning from fall with pain associated, and possible medication effect. Plan: - obtain ammonia and CK - recommend PT - encourage BM - pt has not had a bowel movement in 3 days. Teleneurology will continue to follow progress of symptoms I personally attended this patient and spent a total time of 30 minutes evaluating this patient including clinical assessment, review of chart, medical history imaging, and determining appropriate treatment and workup. HPI Consult Data Date of Consult: 03/23/23 HPI Narrative HPI Narrative: 52-year-old female presents with shortness of breath states she feels swollen. Notes she wears 5 L of oxygen at home. States symptoms have been ongoing for last several days although she notes she always feels short of breath and swollen. Notes compliance with her home medication. Denies any chest pain. Denies any bleeding diathesis. Denies any palpitations. Denies any unilateral leg swelling. The patient denies recent surgery in the last 4 weeks or immobilization in the last 3 days, denies previous diagnosis of DVT or PE, hemoptysis, unilateral leg swelling or malignancy with treatment the last 6 months or palliative. No estrogen use noted. In the morning patient very anxious and restless. She has returned to page questions to ask me about her tremors, could not sleep last night. She also has imbalance and disequilibrium and could not balance herself because of morbid obesity Teleneurlogy consulted for: tremors in hands Neurologic History Feels like she has tremors through her whole body for the last month. Worse when she is doing things. Has had slight headaches. Is on ASA, BP medications, and albuterol and suboxone - that started 9 yrs ago. Recently (the last < 1month) has been using the inhaler more. Was walking on her own with no assistance but now needs help with walking with a walker now. The tremors got worse after she fell this Friday. Her body is sore from falling she states. The fall he had was mechanical, pt was going down stairs and she began sliding down and could not catch herself Denies alcohol use. No tremors noted during the history component of the interview. [facility] Medical History Adrenal mass Atrial fibrillation with rapid ventricular response (06/29/19) Essential hypertension Heroin use disorder, moderate, in early remission Marijuana abuse Nicotine abuse Paroxysmal atrial fibrillation Paroxysmal supraventricular tachycardia Home Medications aspirin 325 mg tablet,delayed release 325 mg PO DAILY 08/21/19 [History Last Taken Unknown] albuterol sulfate .Route 03/17/23 [History Last Taken Unknown] aspirin 81 mg tablet,delayed release (Adult Low Dose Aspirin) 81 mg PO DAILY 03/17/23 [History Last Taken Unknown] lisinopril 20 mg tablet 20 mg PO DAILY 03/17/23 [History Last Taken Unknown] metoprolol tartrate 50 mg tablet 75 mg PO BID 03/17/23 [History Last Taken Unknown] potassium 99 mg tablet 99 mg PO DAILY 03/17/23 [History Last Taken Unknown] umeclidinium-vilanterol 1 inh inhalation DAILY 03/17/23 [History Last Taken Unknown] furosemide 40 mg tablet 40 mg PO DAILY #30 tabs 03/19/23 [Rx Last Taken Unknown] metoprolol tartrate 25 mg tablet 25 mg PO BID #30 tabs 03/19/23 [Rx Last Taken Unknown] albuterol sulfate 2.5 mg/3 mL (0.083 %) solution for nebulization 2.5 mg inhalation Q4H PRN shortness of breath or wheezing 03/22/23 [History Last Taken Unknown] Allergy/AdvReac Type Severity Reaction Status Date / Time naproxen Allergy Shortness Verified 03/21/23 20:54 of breath Opioids - Morphine Analogues AdvReac Other Verified 03/21/23 20:54 Surgical History History of cardioversion (06/29/19) Social History Smoking Status: Current every day smoker tobacco type: cigarettes substance use type: opiates caffeine: Yes Type: coffee and other Vital Signs Vital Signs Vital Signs: 03/22/23 14:00 03/22/23 14:40 03/22/23 20:40 Temperature 98.0 F 98 F Temperature Source Oral Oral Pulse Rate 83 83 Pulse Strength Respiratory Rate 16 16 Respiratory Effort Normal Non-Labored Respiratory Depth Normal Respiratory Pattern Normal Blood Pressure 119/58 L 109/53 L Blood Pressure Mean 78 71 Blood Pressure Source Monitor Monitor Blood Pressure Position Semi-Fowlers Semi-Fowlers Blood Pressure Location Left Forearm Left Arm Pulse Ox 94 95 Oxygen Delivery Method Nasal Cannula Nasal Cannula Nasal Cannula Oxygen Flow Rate (L/min) 5 5 5 Fraction of Inspired Oxygen (FIO2) 03/22/23 21:21 03/22/23 21:50 03/22/23 22:26 Temperature Temperature Source Pulse Rate 88 88 Pulse Strength Normal (2+) Respiratory Rate 18 Respiratory Effort Respiratory Depth Respiratory Pattern Normal Blood Pressure 109/53 L Blood Pressure Mean Blood Pressure Source Blood Pressure Position Blood Pressure Location Pulse Ox Oxygen Delivery Method Oxygen Flow Rate (L/min) Fraction of Inspired Oxygen (FIO2) 03/22/23 20:30 03/22/23 18:45 03/23/23 00:50 Temperature Temperature Source Pulse Rate 85 80 Pulse Strength Respiratory Rate 18 18 Respiratory Effort Normal Respiratory Depth Normal Respiratory Pattern Normal Normal Normal Blood Pressure Blood Pressure Mean Blood Pressure Source Blood Pressure Position Blood Pressure Location Pulse Ox 97 95 Oxygen Delivery Method Nasal Cannula Oxygen Flow Rate (L/min) 5 Fraction of Inspired Oxygen (FIO2) 50 40 03/23/23 02:30 03/23/23 02:40 03/23/23 04:34 Temperature 98 F Temperature Source Axillary Pulse Rate 80 63 Pulse Strength Respiratory Rate 14 16 Respiratory Effort Normal Respiratory Depth Normal Respiratory Pattern Normal Normal Blood Pressure 99/54 L Blood Pressure Mean 69 Blood Pressure Source Monitor Blood Pressure Position Semi-Fowlers Blood Pressure Location Left Forearm Pulse Ox 95 95 Oxygen Delivery Method Bi-pap Nasal Cannula Oxygen Flow Rate (L/min) 5 Fraction of Inspired Oxygen (FIO2) 40 03/23/23 05:00 03/23/23 07:03 03/23/23 07:03 Temperature 97.5 F L Temperature Source Temporal Pulse Rate 73 74 Pulse Strength Respiratory Rate 16 20 H Respiratory Effort Respiratory Depth Respiratory Pattern Tachypnea Blood Pressure 113/63 Blood Pressure Mean 79 Blood Pressure Source Monitor Blood Pressure Position Supine Blood Pressure Location Left Arm Pulse Ox 92 93 Oxygen Delivery Method Nasal Cannula Nasal Cannula Oxygen Flow Rate (L/min) 5 5 Fraction of Inspired Oxygen (FIO2) 03/23/23 08:54 03/23/23 08:56 03/23/23 09:03 Temperature 97.5 F L Temperature Source Temporal Pulse Rate 77 163 H Pulse Strength Normal (2+) Respiratory Rate 18 Respiratory Effort Respiratory Depth Respiratory Pattern Blood Pressure 125/72 H Blood Pressure Mean 89 Blood Pressure Source Monitor Blood Pressure Position Sitting Blood Pressure Location Right Forearm Pulse Ox 97 Oxygen Delivery Method Nasal Cannula Oxygen Flow Rate (L/min) 5 Fraction of Inspired Oxygen (FIO2) 03/23/23 09:05 03/23/23 10:12 Temperature Temperature Source Pulse Rate 165 H Pulse Strength Respiratory Rate Respiratory Effort Normal Respiratory Depth Normal Respiratory Pattern Normal Blood Pressure 104/59 L Blood Pressure Mean Blood Pressure Source Blood Pressure Position Blood Pressure Location Pulse Ox Oxygen Delivery Method Nasal Cannula Oxygen Flow Rate (L/min) 5 Fraction of Inspired Oxygen (FIO2) Weight Weight: 152 kg Body Mass Index (BMI) 52.4 Physical Exam Narrative -? General: Laying comfortably in bed; in no acute distress. -? HENT: Normal oropharynx and mucosa. Normal external appearance of ears and nose. Exophthalmos. -? Neck: Supple, no pain or tenderness -? CV:? No peripheral edema. -? Pulmonary:? Normal respiratory effort. -? Ext: No cyanosis, edema, or deformity -? Skin: No rash. Normal palpation of skin.? -? Musculoskeletal: full range of motion; no joint tenderness. Normal digits and nails by inspection. No clubbing. -? NEURO: -? Mental Status: The patient was alert and oriented to time, place, and person. Normal recent/remote memory, concentration, and general fund of knowledge. -? Language: speech is .? Naming, repetition, fluency, and comprehension intact. -? Cranial Nerves: PERRL mm/brisk. EOMI, visual leger full, no facial asymmetry, facial sensation intact, hearing intact, tongue midline, no evidence of atrophy or fibrillations. As performed by the nurse/BRIGETTE Sternocleidomastoid and trapezius were equally strong. Soft palate raises equally, no uvular deviations -? Motor: normal bulk, tone, and strength throughout. No pronator drift or satelliting. upper extremities with no drift. Lower extremities antigravity for 5 seconds R L SA 4 4 EE 5 5 EF 5 5 WE WF Pound Attendant 5 5 HF 4 4 KE KF 5 5 DF 5 5 PF 5 5 -? Fine low amplitude tremor bilaterally in the arms. There is asterixis as well. -? Sensation- Intact to light touch bilaterally -? Coordination: No dysmetria on [id number], finger follow finger or [id number]. -? Gait- able to stand with no clear tremors or asterixis/myoclonus Lab / Micro Data 03/22/23 03:10 03/23/23 08:20 Labs: Laboratory Results - last 24 hr 03/22/23 02:57: Urine Color Yellow, Urine Clarity Clear, Urine pH 6.0, Ur Specific [place] 1.025, Urine Protein 15 H, Urine Glucose (UA) Normal, Urine Ketones 5 H, Urine Occult Blood Negative, Urine Nitrite Negative, Urine Bilirubin Negative, Urine Urobilinogen Normal, Ur Leukocyte Esterase Negative, Urine RBC 0 SEEN, Urine WBC 0 SEEN, Ur Squamous Epith Cells 0-5 SEEN, Urine Bacteria RARE, Urine Mucus 0 SEEN 03/23/23 08:20: Sodium 144, Potassium 3.8, Chloride 105, Carbon Dioxide 38.0 H, Anion Gap 1 L, BUN 30 H, Creatinine 1.09 H, Estim Creat Clear Calc 60.05, Est GFR (MDRD) Af Amer 68, Est GFR (MDRD) Non-Af 56 L, BUN/Creatinine Ratio 27.5 H, Glucose 94, Calcium 9.1 Active Medications Active Medications Active Medications: Current Medications Generic Name Dose Route Start Last Admin Trade Name Freq PRN Reason Stop Dose Admin Acetaminophen 650 mg 03/22/23 02:11 03/23/23 09:01 Acetaminophen 325 Mg Tablet PO 650 mg Q6H PRN PRN Administration Pain 1-10 Or Fever>100.7 Albuterol/Ipratropium 3 ml 03/22/23 16:00 03/23/23 07:03 Ipratropium/Albuterol Sulfate 3 Ml Ampul.Neb INHALATION 3 ml Q6HWA.RT ANGELLA Administration Alprazolam 0.25 mg 03/23/23 09:06 Alprazolam 0.25 Mg Tablet PO TID PRN PRN ANXIETY/AGITATION Apixaban 5 mg 03/23/23 20:00 Apixaban 5 Mg Tablet PO BID [facility] Aspirin 81 mg 03/22/23 10:00 03/23/23 08:56 Aspirin E.C. 81 Mg Tablet PO 81 mg DAILY ANGELLA Administration Bisacodyl 10 mg 03/23/23 10:00 Bisacodyl 10 Mg Suppository RC DAILY [facility] Buspirone HCl 10 mg 03/23/23 14:00 Buspirone 5 Mg Tablet PO TID [facility] Escitalopram Oxalate 10 mg 03/23/23 10:00 03/23/23 09:27 Escitalopram Oxalate 10 Mg Tablet PO 10 mg DAILY ANGELLA Administration Furosemide 40 mg 03/23/23 10:00 03/23/23 08:57 Furosemide 40 Mg Tablet PO 40 mg DAILY ANGELLA Administration Protocol Sodium Chloride 250 mls @ 15 mls/hr 03/22/23 02:24 IV .[id number] PRN Additional IVPB Infusion Sodium Chloride 250 mls @ 15 mls/hr 03/22/23 02:24 IV .[id number] PRN Saline Flush Melatonin 3 mg 03/22/23 02:11 Melatonin 3 Mg Tablet PO QHS PRN PRN INSOMNIA Metoprolol Tartrate 100 mg 03/23/23 10:00 03/23/23 09:28 Metoprolol Tartrate 100 Mg Tablet PO Not Given BID [facility] Protocol Polyethylene Glycol 17 gm 03/23/23 10:00 03/23/23 09:27 Polyethylene Glycol 3350 17 Gm Packet PO 17 gm DAILY ANGELLA Administration Senna/Docusate Sodium 2 tablet 03/23/23 10:00 03/23/23 09:27 Senna/Docusate Sodium 1 Tablet PO 2 tablet BID ANGELLA Administration Sodium Chloride 10 - 40 ml 03/22/23 02:24 0.9% Saline Lock 10 Ml Syringe IV UD PRN SALINE FLUSH
[2023-03-23] MEDS: busPIRone 5 MG Tablet 10 MG PO ×2 (13:51→22:07)
[2023-03-23] MEDS: ALPRAZolam 0.25 MG Tablet PO ×2 (13:51→22:13)
[2023-03-23 15:40] LABS: CPK Total, Creatine Kinase 191 U/L (26-192)
[2023-03-23] MEDS: Metoprolol Tartrate 100 MG Tablet PO (22:07)
[2023-03-23] MEDS: APIXABAN 5 MG TABLET PO (22:07)
[2023-03-23] MEDS: 0.9% Saline Lock 10 ML Syringe IV (22:09)
--- NOTE | 2023-03-23 22:54 | NURSING ---
room computer didn't log out prior RN properly, shift and vital signs assessment charted under prior staff name. mechanical striper made aware. Re-charted assessment under this RN name.
[2023-03-24] VITALS (10 sets, daily range): BP systolic 115–129; BP diastolic 64–70; PULSE 59–78; RESP 12–20; TEMP 36.3–36.6; O2SAT 92–95; BMI 51.9
[2023-03-24] MEDS: busPIRone 5 MG Tablet 10 MG PO ×3 (06:08→22:59)
[2023-03-24 06:46] LABS: Absolute Lymphocyte Count 0.97 X10^3/uL (0.83-4.51); Absolute Neutrophil Count 3.9 X10^3/uL (2.0-7.7); Basophil# 0.01 X10^3/uL; Basophil% 0.2 % (0-1); Eosinophil# 0.03 X10^3/uL; Eosinophils% 0.5 % (0-5); Hematocrit 44.6 % (37-47); Hemoglobin 12.9 g/dL (12.0-15.0); Lymphocyte # 0.97 X10^3/ul (0.83-4.51); Lymphocyte % 17.3 % (19-41); Mean Corp Hgb Conc 28.9 g/dL (32-36); Mean Corpuscular Hgb 30.4 pg (27.0-32.0); Mean Corpuscular Volume 105.2 fL (81-99); Mean Platelet Vol. 12.9 fl (6.2-12.0); Monocyte% 12.5 % (0-10); NRBC Flagged by Analyzer 0 % (0-5); Neutrophil # 3.87 X10^3/uL (2.7-7.7); Neutrophil % 69.1 % (47-70); POSITIVE COUNT YES; Platelet Count 91 K/mm3 (150-450); RBC Distribution Width CV 13.6 % (11.6-14.6); RBC Distribution Width SD 53.1 fl (35.1-43.9); Red Blood Count 4.24 M/mm3 (4.2-5.4); White Blood Count 5.6 K/mm3 (4.4-11.0)
[2023-03-24 07:05] LABS: Differential Indicated SCAN CRITERIA MET
[2023-03-24 07:15] LABS: Anion Gap 3 (5-15); BUN 32 mg/dL (7-18); BUN/Creat Ratio 31.1 RATIO (10-20); Calcium,Total 9.2 mg/dL (8.5-10.1); Chloride 105 mmol/L (98-107); Creatinine, Serum 1.03 mg/dL (0.55-1.02); EST Glomerular Filtration Rate 60 mL/min (>60); Est Glom Filt Rate - Afr Amer 73 mL/min (>60); Estimated Creatinine Clearance 63.54 ml/min; Glucose 96 mg/dL (74-106); Potassium 4.1 mmol/L (3.5-5.1); Sodium Level 145 mmol/L (136-145)
[2023-03-24] MEDS: Ipratropium/Albuterol Sulfate 3 ML AMPUL.NEB INHALATION ×3 (07:39→22:13)
[2023-03-24 07:55] LABS: Differential Comment SCANNED; Platelet Estimate MOD DEC (ADEQ)
[2023-03-24] MEDS: Escitalopram Oxalate 10 MG Tablet PO (09:09)
[2023-03-24] MEDS: Senna/Docusate Sodium 1 Tablet 2 TABLET PO ×2 (09:09→22:57)
[2023-03-24] MEDS: ALPRAZolam 0.25 MG Tablet PO ×2 (09:09→23:04)
[2023-03-24] MEDS: Acetaminophen 325 MG Tablet 650 MG PO ×2 (09:09→23:04)
[2023-03-24] MEDS: Polyethylene Glycol 3350 17 GM PACKET PO (09:09)
[2023-03-24] MEDS: Furosemide 40 MG Tablet PO (09:10)
[2023-03-24] MEDS: Metoprolol Tartrate 100 MG Tablet PO ×2 (09:10→22:58)
[2023-03-24] MEDS: Aspirin E.C. 81 MG Tablet PO (09:11)
[2023-03-24] MEDS: APIXABAN 5 MG TABLET PO ×2 (09:11→22:58)
[2023-03-24 09:49] LABS: Vitamin B12 367 pg/mL (211-911)
--- NOTE | 2023-03-24 13:27 | PN.HOSP_ITS ---
Reason for Visit Reason for Visit: Diagnoses Chronic diastolic (congestive) heart failure (03/23/23) Heart failure, unspecified (03/23/23) Other specified abnormal findings of blood chemistry (03/23/23) Objective Data Objective Data Vital Signs: Vital Signs Temp Pulse Resp BP Pulse Ox O2 Del Method O2 Flow Rate 97.8 F 70 18 115/68 93 Nasal Cannula 5 03/24/23 09:09 03/24/23 09:10 03/24/23 09:09 03/24/23 09:09 03/24/23 09:09 03/24/23 09:09 03/24/23 09:09 FiO2 40 03/23/23 02:30 Oxygen Flow Rate (L/min) 5 Oxygen Delivery Method Nasal Cannula Weight: 335 lb 1.642 oz Body Mass Index (BMI) 51.9 Intake & Output: Intake and Output for Last 24 Hours 03/22/23 03/23/23 03/24/23 23:59 23:59 23:59 Intake Total 1780 / 1800 692 / 692 Output Total 260 / 260 150 / 150 150 / 150 Balance 1520 / 1540 -130 / -130 542 / 542 Lab / Micro Data 03/24/23 05:40 03/24/23 05:40 Labs: Laboratory Results - last 24 hr 03/23/23 14:30: Ammonia 38.0 H, Total Creatine Kinase 191, Vitamin B12 367, Folate 6.40 03/24/23 05:40: WBC 5.6, RBC 4.24, Hgb 12.9, Hct 44.6, MCV 105.2 H, MCH 30.4, MCHC 28.9 L, RDW Std Deviation 53.1 H, RDW Coeff of Fernando 13.6, Plt Count 91 L, MPV 12.9 H, Immature Gran % (Auto) 0.400, Neut % (Auto) 69.1, Lymph % (Auto) 17.3 L, Wood % (Auto) 12.5 H, Eos % (Auto) 0.5, Baso % (Auto) 0.2, Absolute Neuts (auto) 3.9, Absolute Lymphs (auto) 0.97, Nucleated RBC % 0, Differential Comment SCANNED, Platelet Estimate MOD DEC, Sodium 145, Potassium 4.1, Chloride 105, Carbon Dioxide 37.0 H, Anion Gap 3 L, BUN 32 H, Creatinine 1.03 H, Estim Creat Clear Calc 63.54, Est GFR (MDRD) Af Amer 73, Est GFR (MDRD) Non-Af 60, BUN/Creatinine Ratio 31.1 H, Glucose 96, Calcium 9.2 Micro: Microbiology 03/21/23 21:27 Mucosa - Nose SARS-CoV-2, Influenza & RSV (PCR) - Final Physical Exam Narrative Seen and examined. Patient converted to sinus rhythm in afternoon yesterday. Patient was also seen by the [facility] teleneurologist yesterday. Her tremor seems physiologic. Still anxious restless. She also has imbalance and disequilibrium and could not balance herself because of morbid obesity. Was not able to keep BiPAP all night but for few hours Physical exam General: Alert, Oriented x3, Cooperative, BMI 51.8 kg/m? HEENT: Atraumatic, PERRLA, EOMI, Normocephalic Oral: Deep oropharyngeal structures could not be visualized. No Gingival or Mucosal Lesions/ Ulcerations Neck: Supple, No JVD, Negative Carotid Bruits Lungs: Air entry diminished in bilateral lung bases. Mild bilateral wheezing. Cardiovascular: Regular rate, Regular Rhythm, Normal S1, Normal S2, No murmurs Abdomen: Bowel Sounds Present, Soft, Non Tender, Non-Distended : No renal angle tenderness. No suprapubic tenderness. Extremities: No edema, Capillary Refill Less than 3 Seconds Skin: Skin tight and tense on lower legs., nonpitting edema. Subcutaneous fat. Musculoskeletal: No Tenderness to Palpation of Joints or Extremities, ROM restricted due to morbid obesity. Neurological: Cranial nerves II-XII grossly intact, DTR 2+/4. No acute focal neurological deficit. Fine tremors on arm arm and upper extremities. Psych/Mental Status: Flat affect, anxious. Assessment & Plan Assessment/Plan (1) Elevated troponin: (2) Congestive heart failure: QUALIFIERS: Heart failure type: diastolic Heart failure chronicity: chronic Qualified Code(s): I50.32 - Chronic diastolic (congestive) heart failure PLAN: Plan Patient is a 52-year-old female who presented to [facility] ED on 03/21/2023 with worsening shortness of breath and generalized edema. He was only patient uses 5 L of oxygen at home but for last several days she feels more short of breath and swelling. Denies chest pain palpitation. 1. Chronic HFpEF, suspected intravascular hypovolemia from recent overdiuresis Recent admission from 03/17 to 03/19 for heart failure exacerbation. Echo 03/17 showed EF 55%, stage II diastolic dysfunction. Hypoxia improved with IV diuresis, patient discharged home on p.o. Lasix 40 mg daily. Patient with mild hypotension on arrival to ED on 03/21. Chest x-ray with no evidence of volume overload. Creatinine appears stable at baseline. Elevated troponins as noted below. It was suspected that patient is dry/intravascular volume depletion due to aggressive diuresis. Patient is admitted in PCU. 03/24/2023: Lasix was resumed later after initially holding it. 2. A-fib with RVR history of paroxysmal A-fib and troponin elevation probably due to acute myocardial injury from A-fib RVR/increased cardiac demand: No chest pain, EKG with no acute ST changes. Serial troponins are flat and does not show significant delta increase. 79, 81 and 74. BNP elevated, 281. Patient ranging to A-fib in the morning with heart rate 140s to 60 department. Patient is very anxious and restless and could not sleep last night. Her heart rate is 162 quadrant on EKG. Cardizem 20 mg IV bolus slow ordered. Patient on metoprolol 100 mg twice daily. Eliquis 5 mg twice daily for stroke prophylaxis. Patient Lovenox 40 mg twice daily discontinued 03/23: Patient heart rate is still in 150s after given Cardizem 20 mg IV bolus. 1 04/13: Patient was converted to sinus rhythm after Cardizem 20 mg IV. Continue metoprolol 100 mg twice daily. MEGHAN most likely due to diuretic on CKD stage IIIA: Her baseline creatinine runs around 1.6-1.7. She was discharged last time on .. Holding Lasix, creatinine improved to 1.36. 03/23 MEGAHN resolved. Creatinine 1.09 BUN 30. Lasix resumed. 3. Chronic hypoxic respiratory failure ? On home 4 to 5 L nasal cannula, currently she is on 5 to 6 L of oxygen. Chest x-ray with no evidence of volume overload. BiPAP at night. 4. Super morbid obesity, debility, difficult social situation BMI 51 on admit. Case management followed on recent admission. Per patient's friend, patient lives alone in a rented home with poor living conditions. Patient does not move well given her body habitus, does not leave her house much. Also does not usually allow people into her home. ? PT/OT/case management consulted. Super morbid obesity complicates patient's hospital course, expected recovery and prognosis. 5. Generalized fatigue with somnolence, history of substance abuse ? Patient appeared very fatigued with a degree of somnolence on my interview in the ED. Does have known history of heroin abuse, as well as marijuana abuse and nicotine abuse. Urine drug screen ordered. 6. Patient also complaining of tremors upper extremity arms forearms hands minutes of the bed. She feels also on lower legs. She wanted neuroconsult therefore [facility] teleneurology consult requested. I think her tremors are related to her anxiety and restlessness and is more positional on lifting her arms and at shoulder level. Patient was started on BuSpar yesterday which does increase to 10 mg 3 times daily. Started on escitalopram 10 mg daily and Xanax 0.25 mg 3 times daily as needed for anxiety attack. 03/24/2023: Serum ammonia 38. CK1 91. B12 and folic acid normal. DVT prophylaxis: Lovenox twice daily CODE STATUS: Full code, unverified Charges/Coding Visit Charges Inpatient E&M: 48159 Subs Hosp L2
[2023-03-24] MEDS: Thiamine Hydrochloride 100 MG Tablet PO (14:44)
[2023-03-24] MEDS: Cyanocobalamin 500 MCG Tablet 1000 MCG PO (14:44)
[2023-03-25] VITALS (10 sets, daily range): BP systolic 113–149; BP diastolic 55–83; PULSE 56–74; RESP 16–18; TEMP 36.1–36.7; O2SAT 89–97; BMI 52.0
[2023-03-25] MEDS: busPIRone 5 MG Tablet 10 MG PO ×3 (05:06→20:12)
[2023-03-25] MEDS: Ipratropium/Albuterol Sulfate 3 ML AMPUL.NEB INHALATION ×3 (06:53→19:07)
[2023-03-25] MEDS: Thiamine Hydrochloride 100 MG Tablet PO (09:51)
[2023-03-25] MEDS: Bisacodyl 10 MG Suppository RC (09:51)
[2023-03-25] MEDS: Cyanocobalamin 500 MCG Tablet 1000 MCG PO (09:51)
[2023-03-25] MEDS: Metoprolol Tartrate 100 MG Tablet PO ×2 (09:52→20:14)
[2023-03-25] MEDS: Senna/Docusate Sodium 1 Tablet 2 TABLET PO ×2 (09:52→20:13)
[2023-03-25] MEDS: Aspirin E.C. 81 MG Tablet PO (09:52)
[2023-03-25] MEDS: Furosemide 40 MG Tablet PO (09:52)
[2023-03-25] MEDS: APIXABAN 5 MG TABLET PO ×2 (09:52→20:13)
[2023-03-25] MEDS: Polyethylene Glycol 3350 17 GM PACKET PO (09:52)
[2023-03-25] MEDS: Escitalopram Oxalate 10 MG Tablet PO (09:52)
[2023-03-25] MEDS: Acetaminophen 325 MG Tablet 650 MG PO (09:53)
--- NOTE | 2023-03-25 10:12 | CCN.REFER ---
PATIENT DOES NOT QUALIFY FOR [facility] SERVICES DUE TO HISTORY AND POTENTIALLY CURRENT USE OF HEROIN AND OTHER DRUGS.
--- NOTE | 2023-03-25 13:45 | CASEMGMT ---
FREDY BOONE chart review: Patient was admitted 03/17-03/19/23 for acute diastolic heart failure. See FREDY BOONE assessment from 03/18/23. Patient was discharged to home with home oxygen setup with [employer] at 4lpm at rest and 5lpm with ambulation. A referral was made to [facility] but was declined due to history of drug abuse. Patient returned 03/21/23 for SOB and admitted for elevated troponin and mild CHF exacerbation. FREDY BOONE in to discuss readmission and needs at discharge. Patient states she was taking medications as prescribed. Patient returned prior to PCP appt. Patient states she was not follow diet as she had not been to the store yet. Patient states she returned to [facility] due to fall. FREDY BOONE reviewed progress with therapy, 8 feet contact guard, recommneding SNF. Patient is agreeable to SNF at discharge and states she prefers [facility] in [place] and declined list of SNF. FREDY BOONE updated SW.
--- NOTE | 2023-03-25 14:31 | CASEMGMT ---
Per RN CM patient is agreeable to go to a SNF. Patient would like to go to [facility]. SW asked Melisa to please send a referral to [facility]. Karly BRIGGS
--- NOTE | 2023-03-25 14:50 | CASEMGMT ---
Discharge Planning Referral sent via [facility] to [facility]. Melisa Coreas, Discharge Planning Asst.
--- NOTE | 2023-03-25 15:10 | CASEMGMT ---
[facility] accepted patient and will start pre-cert. SW completed a PASRR and sent it to [facility] via [facility] [employer] per their request. Karly BRIGGS
--- NOTE | 2023-03-25 15:35 | PN.HOSP_ITS ---
Reason for Visit Reason for Visit: Diagnoses Chronic diastolic (congestive) heart failure (03/23/23) Heart failure, unspecified (03/23/23) Other specified abnormal findings of blood chemistry (03/23/23) Objective Data Objective Data Vital Signs: Vital Signs Temp Pulse Resp BP Pulse Ox O2 Del Method O2 Flow Rate 97.6 F L 58 L 18 139/71 H 95 Nasal Cannula 5 03/25/23 15:05 03/25/23 15:05 03/25/23 15:05 03/25/23 15:05 03/25/23 15:05 03/25/23 15:05 03/25/23 15:05 FiO2 35 03/24/23 22:10 Oxygen Flow Rate (L/min) 5 Oxygen Delivery Method Nasal Cannula Weight: 331 lb 12.731 oz Body Mass Index (BMI) 52.0 Intake & Output: Intake and Output for Last 24 Hours 03/23/23 03/24/23 03/25/23 23:59 23:59 23:59 Intake Total 1492 / 1492 810 / 810 Output Total 150 / 150 450 / 450 602 / 602 Balance -130 / -130 1042 / 1042 208 / 208 Lab / Micro Data 03/24/23 05:40 03/24/23 05:40 Micro: Microbiology 03/21/23 21:27 Mucosa - Nose SARS-CoV-2, Influenza & RSV (PCR) - Final Physical Exam Narrative Seen and examined. Patient converted to sinus rhythm 03/23/2023. No new complaint. Patient still gets anxiety. Sometimes drowsy. BiPAP at night. Past history of drug use. Patient was also seen by the [facility] teleneurologist on 03/23. Her tremor seems physiologic. She also has imbalance and disequilibrium and could not balance herself because of morbid obesity. Physical exam General: Alert, Oriented x3, Cooperative, BMI 51.8 kg/m? HEENT: Atraumatic, PERRLA, EOMI, Normocephalic Oral: Deep oropharyngeal structures could not be visualized. No Gingival or Mucosal Lesions/ Ulcerations Neck: Supple, No JVD, Negative Carotid Bruits Lungs: Air entry diminished in bilateral lung bases. Mild bilateral wheezing. Cardiovascular: Regular rate, Regular Rhythm, Normal S1, Normal S2, No murmurs Abdomen: Bowel Sounds Present, Soft, Non Tender, Non-Distended : No renal angle tenderness. No suprapubic tenderness. Extremities: No edema, Capillary Refill Less than 3 Seconds Skin: Skin tight and tense on lower legs., nonpitting edema. Subcutaneous fat. Musculoskeletal: No Tenderness to Palpation of Joints or Extremities, ROM restricted due to morbid obesity. Neurological: Cranial nerves II-XII grossly intact, DTR 2+/4. No acute focal neurological deficit. Fine tremors on arm arm and upper extremities. Psych/Mental Status: Flat affect, anxious. Assessment & Plan Assessment/Plan (1) Elevated troponin: (2) Congestive heart failure: QUALIFIERS: Heart failure type: diastolic Heart failure chronicity: chronic Qualified Code(s): I50.32 - Chronic diastolic (congestive) heart failure PLAN: Plan Patient is a 52-year-old female who presented to [facility] ED on 03/21/2023 with worsening shortness of breath and generalized edema. He was only patient uses 5 L of oxygen at home but for last several days she feels more short of breath and swelling. Denies chest pain palpitation. 1. Chronic HFpEF, suspected intravascular hypovolemia from recent overdiuresis Recent admission from 03/17 to 03/19 for heart failure exacerbation. Echo 03/17 showed EF 55%, stage II diastolic dysfunction. Hypoxia improved with IV diuresis, patient discharged home on p.o. Lasix 40 mg daily. Patient with mild hypotension on arrival to ED on 03/21. Chest x-ray with no evidence of volume overload. Creatinine appears stable at baseline. Elevated troponins as noted below. It was suspected that patient is dry/intravascular volume depletion due to aggressive diuresis. Patient is admitted in PCU. 03/24/2023: Lasix was resumed later after initially holding it. 03/25/2023: Continue baseline medication. PT and OT and case management for discharge planning. 2. A-fib with RVR history of paroxysmal A-fib and troponin elevation probably due to acute myocardial injury from A-fib RVR/increased cardiac demand: No chest pain, EKG with no acute ST changes. Serial troponins are flat and does not show significant delta increase. 79, 81 and 74. BNP elevated, 281. Patient ranging to A-fib in the morning with heart rate 140s to 60 department. Patient is very anxious and restless and could not sleep last night. Her heart rate is 162 quadrant on EKG. Cardizem 20 mg IV bolus slow ordered. Patient on metoprolol 100 mg twice daily. Eliquis 5 mg twice daily for stroke prophylaxis. Patient Lovenox 40 mg twice daily discontinued 03/23: Patient heart rate is still in 150s after given Cardizem 20 mg IV bolus. 03/24/23: Patient was converted to sinus rhythm after Cardizem 20 mg IV. Continue metoprolol 100 mg twice daily. 03/25: Continue metoprolol and Eliquis. MEGHAN most likely due to diuretic on CKD stage IIIA: Her baseline creatinine runs around 1.6-1.7. She was discharged last time on . Holding Lasix, creatinine improved to 1.36. 03/23 MEGHAN resolved. Creatinine 1.09 BUN 30. Lasix resumed. 3. Chronic hypoxic respiratory failure ? On home 4 to 5 L nasal cannula, currently she is on 5 to 6 L of oxygen. Chest x-ray with no evidence of volume overload. BiPAP at night. 4. Super morbid obesity, debility, difficult social situation BMI 51 on admit. Case management followed on recent admission. Per patient's friend, patient lives alone in a rented home with poor living conditions. Patient does not move well given her body habitus, does not leave her house much. Also does not usually allow people into her home. ? PT/OT/case management consulted. Super morbid obesity complicates patient's hospital course, expected recovery and prognosis. 5. Generalized fatigue with somnolence, history of substance abuse ? Patient appeared very fatigued with a degree of somnolence on my interview in the ED. Does have known history of heroin abuse, as well as marijuana abuse and nicotine abuse. Urine drug screen ordered. 6. Patient also complaining of tremors upper extremity arms forearms hands minutes of the bed. She feels also on lower legs. She wanted neuroconsult therefore [facility] teleneurology consult requested. I think her tremors are related to her anxiety and restlessness and is more positional on lifting her arms and at shoulder level. Patient was started on BuSpar yesterday which does increase to 10 mg 3 times daily. Started on escitalopram 10 mg daily and Xanax 0.25 mg 3 times daily as needed for anxiety attack. 03/24/2023: Serum ammonia 38. CK1 91. B12 and folic acid normal. DVT prophylaxis: Lovenox twice daily CODE STATUS: Full code, unverified Charges/Coding Visit Charges Inpatient E&M: 87398 Subs Hosp L2
--- NOTE | 2023-03-25 16:04 | CASEMGMT ---
KYRA met with patient and let her know that [facility] can take her. KYRA explained once insurance approves patient will be moved to [facility]. Plan: d/c to [facility] pending approval. Karly BRIGGS
--- NOTE | 2023-03-25 23:30 | CPS ---
asked pt if ready to go on bipap for the night-pt states wants to sit on side of bed-nurse aware bipap not on
[2023-03-26] VITALS (8 sets, daily range): BP systolic 110–130; BP diastolic 57–73; PULSE 56–158; RESP 16–20; TEMP 36.1–36.8; O2SAT 92–97; BMI 51.7
[2023-03-26] MEDS: busPIRone 5 MG Tablet 10 MG PO ×2 (04:06→14:20)
[2023-03-26] MEDS: Ipratropium/Albuterol Sulfate 3 ML AMPUL.NEB INHALATION ×2 (06:47→13:12)
[2023-03-26] MEDS: Thiamine Hydrochloride 100 MG Tablet PO (08:57)
[2023-03-26] MEDS: Cyanocobalamin 500 MCG Tablet 1000 MCG PO (08:57)
[2023-03-26] MEDS: Furosemide 40 MG Tablet PO (08:58)
[2023-03-26] MEDS: Aspirin E.C. 81 MG Tablet PO (08:58)
[2023-03-26] MEDS: APIXABAN 5 MG TABLET PO (08:58)
[2023-03-26] MEDS: Metoprolol Tartrate 100 MG Tablet PO (08:58)
[2023-03-26] MEDS: Escitalopram Oxalate 10 MG Tablet PO (08:58)
[2023-03-26] MEDS: Bisacodyl 10 MG Suppository RC (09:10)
[2023-03-26] MEDS: Polyethylene Glycol 3350 17 GM PACKET PO (09:10)
[2023-03-26] MEDS: Senna/Docusate Sodium 1 Tablet 2 TABLET PO (09:11)
--- NOTE | 2023-03-26 09:30 | CASEMGMT ---
Discharge Planning [facility] has received auth. SW updated. Melisa Coreas, Discharge Planning Asst.
--- NOTE | 2023-03-26 10:12 | CASEMGMT ---
[facility] received approval for patient. KYRA will notify physician. Karly BRIGGS
--- NOTE | 2023-03-26 10:43 | PN.HOSP_ITS ---
Reason for Visit Reason for Visit: Diagnoses Chronic diastolic (congestive) heart failure (03/23/23) Heart failure, unspecified (03/23/23) Other specified abnormal findings of blood chemistry (03/23/23) Subjective Subjective Still complaining of myoclonus. When she falls asleep. She is wondering if the alf scanner know about that when she goes over there. She endorses that she does not see doctors regularly. Objective Data Objective Data Vital Signs: Vital Signs Temp Pulse Resp BP Pulse Ox O2 Del Method O2 Flow Rate 36.5 C L 73 18 130/72 H 95 Nasal Cannula 5 03/26/23 09:17 03/26/23 09:17 03/26/23 09:17 03/26/23 09:17 03/26/23 09:17 03/26/23 09:17 03/26/23 09:17 FiO2 35 03/24/23 22:10 Oxygen Flow Rate (L/min) 5 Oxygen Delivery Method Nasal Cannula Weight: 149.7 kg Body Mass Index (BMI) 51.7 Intake & Output: Intake and Output for Last 24 Hours 03/24/23 03/25/23 03/26/23 23:59 23:59 23:59 Intake Total 1492 / 1492 810 / 1050 340 / 340 Output Total 450 / 450 902 / 902 150 / 150 Balance 1042 / 1042 -92 / 148 190 / 190 Lab / Micro Data 03/24/23 05:40 03/24/23 05:40 Micro: Microbiology 03/21/23 21:27 Mucosa - Nose SARS-CoV-2, Influenza & RSV (PCR) - Final Physical Exam Const Constitutional Narrative: Dozes off during encounter several times. Assessment & Plan Assessment/Plan (1) Elevated troponin: (2) Congestive heart failure: QUALIFIERS: Heart failure chronicity: chronic Heart failure type: diastolic Qualified Code(s): I50.32 - Chronic diastolic (congestive) heart failure PLAN: Plan Chronic HFpEF, suspected intravascular hypovolemia from recent overdiuresis * Recent admission from 03/17 to 03/19 for heart failure exacerbation. Echo 03/17 showed EF 55%, stage II diastolic dysfunction. Hypoxia improved with IV diuresis, patient discharged home on p.o. Lasix 40 mg daily. Patient with mild hypotension on arrival to ED on 03/21. Chest x-ray with no evidence of volume overload. Creatinine appears stable at baseline. Elevated troponins as noted below. It was suspected that patient is dry/intravascular volume depletion due to aggressive diuresis. * 03/24/2023: Lasix was resumed later after initially holding it. A-fib with RVR history of paroxysmal A-fib and troponin elevation probably due to acute myocardial injury from A-fib RVR/increased cardiac demand: 03/23: Patient heart rate is still in 150s after given Cardizem 20 mg IV bolus. 03/24/23: Patient was converted to sinus rhythm after Cardizem 20 mg IV. Continue metoprolol 100 mg twice daily. 03/25: Continue metoprolol and Eliquis. MEGHAN most likely due to diuretic on CKD stage IIIA: * Resolved. 04/25 to overdiuresis. Myoclonus * Does not present as tremors on my evaluation. Patient was dozing off and had a myoclonic jerk. Will discontinue medications as patient is very somnolent. Debility * Get stronger pression that patient is going to be lackadaisical and being engaged with therapy. Discussed with her about buying into the process of doing therapy to get stronger but also to following up with doctors. Patient seen and board with this conversation and actually does for Roxann close her eyes during the encounter. I do not suspect patient is going to thrive and I suspect that though she may get better temporarily, overall she is going to continue to decline chronic conditions: * Chronic hypoxic respiratory failure? On home 4 to 5 L nasal cannula, currently she is on 5 to 6 L of oxygen. Chest x-ray with no evidence of volume overload. BiPAP at night. * Super morbid obesity, debility, difficult social situation. BMI 51 on admit. Case management followed on recent admission. Per patient's friend, patient lives alone in a rented home with poor living conditions. Patient does not mo ve well given her body habitus, does not leave her house much. Also does not usually allow people into her home. PT/OT/case management consulted. Super morbid obesity complicates patient's hospital course, expected recovery and prognosis. * Generalized fatigue with somnolence, history of substance abuse? Patient appeared very fatigued with a degree of somnolence on my interview in the ED. Does have known history of heroin abuse, as well as marijuana abuse and nicotine abuse. Urine drug screen ordered. DVT prophylaxis: Lovenox twice daily CODE STATUS: Full code, unverified
--- NOTE | 2023-03-26 13:30 | TREXTCAR_ITS ---
Diet Diet Order/Speech Therapy: 03/22/23 02:11 Diet: Cardiac - Heart Healthy Food consistency:: Regular Liquid Consistency:: Regular/Thin Is pt able to select menu?: Yes Fluid restriction:: 2000 mL Therapies Weight Bearing: Full weight bearing Physical Therapy: Eval and Treat Occupational Therapy: Eval and Treat Problem/Diagnosis (1) Elevated troponin: Status: Acute Code(s): R79.89 - Other specified abnormal findings of blood chemistry (2) Congestive heart failure: Status: Acute Code(s): I50.9 - Heart failure, unspecified Plan Chronic HFpEF, suspected intravascular hypovolemia from recent overdiuresis * Recent admission from 03/17 to 03/19 for heart failure exacerbation. Echo 03/17 showed EF 55%, stage II diastolic dysfunction. Hypoxia improved with IV diuresis, patient discharged home on p.o. Lasix 40 mg daily. Patient with mild hypotension on arrival to ED on 03/21. Chest x-ray with no evidence of volume overload. Creatinine appears stable at baseline. Elevated troponins as noted below. It was suspected that patient is dry/intravascular volume depletion due to aggressive diuresis. * 03/24/2023: Lasix was resumed later after initially holding it. A-fib with RVR history of paroxysmal A-fib and troponin elevation probably due to acute myocardial injury from A-fib RVR/increased cardiac demand: 03/23: Patient heart rate is still in 150s after given Cardizem 20 mg IV bolus. 03/24/23: Patient was converted to sinus rhythm after Cardizem 20 mg IV. Continue metoprolol 100 mg twice daily. 03/25: Continue metoprolol and Eliquis. MEGHAN most likely due to diuretic on CKD stage IIIA: * Resolved. 2 to overdiuresis. Myoclonus * Does not present as tremors on my evaluation. Patient was dozing off and had a myoclonic jerk. Will discontinue medications as patient is very somnolent. Debility * Get stronger pression that patient is going to be lackadaisical and being engaged with therapy. Discussed with her about buying into the process of doing therapy to get stronger but also to following up with doctors. Patient seen and board with this conversation and actually does for Roxann close her eyes during the encounter. I do not suspect patient is going to thrive and I suspect that though she may get better temporarily, overall she is going to continue to decline chronic conditions: * Chronic hypoxic respiratory failure? On home 4 to 5 L nasal cannula, currently she is on 5 to 6 L of oxygen. Chest x-ray with no evidence of volume overload. BiPAP at night. * Super morbid obesity, debility, difficult social situation. BMI 51 on admit. Case management followed on recent admission. Per patient's friend, patient lives alone in a rented home with poor living conditions. Patient does not move well given her body habitus, does not leave her house much. Also does not usually allow people into her home. PT/OT/case management consulted. Super morbid obesity complicates patient's hospital course, expected recovery and prognosis. * Generalized fatigue with somnolence, history of substance abuse? Patient appeared very fatigued with a degree of somnolence on my interview in the ED. Does have known history of heroin abuse, as well as marijuana abuse and nicotine abuse. Urine drug screen ordered. DVT prophylaxis: Lovenox twice daily CODE STATUS: Full code, unverified Allergies/Procedures Done in Hospital Allergies naproxen Allergy (Verified 03/21/23 20:54) Shortness of breath Opioids - Morphine Analogues Adverse Reaction (Verified 03/21/23 20:54) Other was addicted to heroine 10 years ago Procedures: 2-D Echocardiogram Type of Care/Length of Stay Estimated LOS: Convalescent Care Less Than 30 days Type of Care Needed: Skilled Rehab Potential: Fair Prognosis: Good Additional Orders/Day of Discharge Day of Discharge: 03/26/23 Dietary and Speech Recommendations Dietitian Recommendations/Changes: Continue Cardiac diet to manage medical conditions. Fluid restriction per MD Discharge Plan Admission Admit Date/Time: 03/23/23 15:54 Primary Reason for Your Visit: CHF Attending Provider: Willie Stanford Primary Care Provider: Imtiaz Marie Consulting Providers: Burt Urrutia; Kayden Ni; Rodriguez Sidhu; Karie Geiger; Amelia Epstein; Bailee Jeong; Farooq Schaeffer; Bernadette Curtis; Naeem Zavala; Roge Peralta; [place]; [place]; Faiza Gustafson; Suraj Anguiano; Faizan Gordillo; Jareth Yun; [place]; Atul Villarreal; Shanna Mancilla; Guero Logan; John Chacko Discharge Orders/Prescriptions Prescriptions: New acetaminophen 325 mg Tablet 650 mg PO Q6H PRN PRN (Reason: Pain 1-10 Or Fever>100.7) Qty: 0 0RF metoprolol tartrate 100 mg Tablet 100 mg PO BID Qty: 0 0RF Eliquis 5 mg Tablet 5 mg PO BID Qty: 0 0RF melatonin 3 mg Tablet 3 mg PO QHS PRN PRN (Reason: Insomnia) Qty: 0 0RF bisacodyl 10 mg Suppository 10 mg MI DAILY Qty: 0 0RF multivitamin [Daily Multi-Vitamin] Tablet 1 tab PO DAILY Qty: 30 0RF Continued aspirin [Adult Low Dose Aspirin] 81 mg tablet,delayed release (DR/EC) 81 mg PO DAILY umeclidinium-vilanterol [Anoro Ellipta] 1 inh inhalation DAILY albuterol sulfate [Ventolin HFA] .Route furosemide 40 mg tablet 40 mg PO DAILY Qty: 30 2RF albuterol sulfate 2.5 mg /3 mL (0.083 %) solution for nebulization 2.5 mg inhalation Q4H PRN (Reason: shortness of breath or wheezing) Patient Comments: inhale contents of 1 vial ( 3 milliliters ) in nebulizer by mouth... (REFER TO PRESCRIPTION NOTES). Discontinued aspirin 325 MG tablet,delayed release (DR/EC) 325 mg PO DAILY Hold Instructions: Ordered metoprolol tartrate 50 mg tablet 75 mg PO BID Patient Comments: take 1 AND 1/2 tablet by mouth twice a day lisinopril 20 mg tablet 20 mg PO DAILY Patient Comments: take 1 tablet by mouth once daily potassium 99 mg tablet 99 mg PO DAILY metoprolol tartrate 25 mg tablet 25 mg PO BID Qty: 30 2RF Referrals / Follow Up: [facility] [Provider Group] - Within 1 Month [facility] [Provider Group] - Within 1 Month Imtiaz Marie MD [Primary Care Provider] - Within 2 Weeks Disposition Disposition (needs filled in before D/C Order can be placed): [facility] (2) Congestive heart failure Qualifiers: Heart failure type: diastolic Heart failure chronicity: chronic Qualified Code(s): I50.32 - Chronic diastolic (congestive) heart failure
--- NOTE | 2023-03-26 13:37 | DS.PCM_ITS ---
Providers Date of Admission: 03/23/23 Primary Care Physician: Dr. Imtiaz Marie MD Consultations 03/23/23 09:07 Consult: Tele-Neurology Routine Consulting Provider: [facility] Reason for Consult: tremors in hands and legs, anxiety? EMERGENT Consult: No MD Notified: Yes Date Notified: 03/23/23 Time Notified: 09:07 Method of Notification: Answering Service Method of Consult:: Telemedicine Nursing Unit Staff Notify [facility] of Tele-Neurology Consult: Yes Reason For Visit: ELEVATED TROPONINS, MILD CHF EXACERBATION Diagnosis Discharge Diagnosis (1) Elevated troponin: Status: Acute Code(s): R79.89 - Other specified abnormal findings of blood chemistry (2) Congestive heart failure: Status: Acute Code(s): I50.9 - Heart failure, unspecified Qualifiers: Heart failure type: diastolic Heart failure chronicity: chronic Qualified Code(s): I50.32 - Chronic diastolic (congestive) heart failure Plan Chronic HFpEF, suspected intravascular hypovolemia from recent overdiuresis * Recent admission from 03/17 to 03/19 for heart failure exacerbation. Echo 03/17 showed EF 55%, stage II diastolic dysfunction. Hypoxia improved with IV diuresis, patient discharged home on p.o. Lasix 40 mg daily. Patient with mild hypotension on arrival to ED on 03/21. Chest x-ray with no evidence of volume overload. Creatinine appears stable at baseline. Elevated troponins as noted below. It was suspected that patient is dry/intravascular volume depletion due to aggressive diuresis. * 03/24/2023: Lasix was resumed later after initially holding it. A-fib with RVR history of paroxysmal A-fib and troponin elevation probably due to acute myocardial injury from A-fib RVR/increased cardiac demand: 03/23: Patient heart rate is still in 150s after given Cardizem 20 mg IV bolus. 03/24/23: Patient was converted to sinus rhythm after Cardizem 20 mg IV. Continue metoprolol 100 mg twice daily. 03/25: Continue metoprolol and Eliquis. MEGHAN most likely due to diuretic on CKD stage IIIA: * Resolved. 2 to overdiuresis. Myoclonus * Does not present as tremors on my evaluation. Patient was dozing off and had a myoclonic jerk. Will discontinue medications as patient is very somnolent. Debility * Get stronger pression that patient is going to be lackadaisical and being engaged with therapy. Discussed with her about buying into the process of doing therapy to get stronger but also to following up with doctors. Patient seen and board with this conversation and actually does for Roaxnn close her eyes during the encounter. I do not suspect patient is going to thrive and I suspect that though she may get better temporarily, overall she is going to continue to decline chronic conditions: * Chronic hypoxic respiratory failure? On home 4 to 5 L nasal cannula, currently she is on 5 to 6 L of oxygen. Chest x-ray with no evidence of volume overload. BiPAP at night. * Super morbid obesity, debility, difficult social situation. BMI 51 on admit. Case management followed on recent admission. Per patient's friend, patient lives alone in a rented home with poor living conditions. Patient does not move well given her body habitus, does not leave her house much. Also does not usually allow people into her home. PT/OT/case management consulted. Super morbid obesity complicates patient's hospital course, expected recovery and prognosis. * Generalized fatigue with somnolence, history of substance abuse? Patient appeared very fatigued with a degree of somnolence on my interview in the ED. Does have known history of heroin abuse, as well as marijuana abuse and nicotine abuse. Urine drug screen ordered. DVT prophylaxis: Lovenox twice daily CODE STATUS: Full code, unverified Medications at Discharge Home Medications albuterol sulfate .Route 03/17/23 aspirin 81 mg tablet,delayed release (Adult Low Dose Aspirin) 81 mg PO DAILY 03/17/23 umeclidinium-vilanterol 1 inh inhalation DAILY 03/17/23 furosemide 40 mg tablet 40 mg PO DAILY #30 tabs 03/19/23 albuterol sulfate 2.5 mg/3 mL (0.083 %) solution for nebulization 2.5 mg inhalation Q4H PRN shortness of breath or wheezing 03/22/23 acetaminophen 325 mg tablet 650 mg (2 x 325 mg) PO Q6H PRN PRN Pain 1-10 Or Fever>100.7 #0 tabs 03/26/23 apixaban 5 mg tablet (Eliquis) 5 mg PO BID #0 tabs 03/26/23 bisacodyl 10 mg rectal suppository 10 mg MI DAILY #0 ea 03/26/23 melatonin 3 mg tablet 3 mg PO QHS PRN PRN Insomnia #0 tabs 03/26/23 metoprolol tartrate 100 mg tablet 100 mg PO BID #0 tabs 03/26/23 multivitamin (Daily Multi-Vitamin tablet) 1 tab PO DAILY #30 tabs 03/26/23 Hospital Course Procedures 2-D Echocardiogram Summary of Care Provided Minutes Spent on Discharge: 40 Weight / BMI Weight Weight: 149.7 kg Body Mass Index (BMI) 51.7 ABG / Lab / Microbiology Data 03/24/23 05:40 03/24/23 05:40 Microbiology: Microbiology 03/21/23 21:27 Mucosa - Nose SARS-CoV-2, Influenza & RSV (PCR) - Final Meaningful Use Info Meaningful Use Diagnoses (Choose all that apply): CHF CHF ADAM/ARB ordered at discharge?: No Reason ADAM/ARB not ordered?: Hypotension Documented LVEF (%): 55 Discharge Plan Admission Admit Date/Time: 03/23/23 15:54 Primary Reason for Your Visit: CHF Attending Provider: Willie Stanford Primary Care Provider: Imtiaz Marie Consulting Providers: Burt Urrutia; Kayden Ni; Rodriguez Sidhu; Karie Geiger; Amelia Epstein; Bailee Jeong; Farooq Schaeffer; Bernadette Curtis; Naeem Zavala; Roge Peralta; [place]; [place]; Faiza Gustafson; Suraj Anguiano; Faizan Godrillo; Jareth Yun; [place]; Adilene Villarreal; Shanna Mancilla; Guero Logan; John Chacko Discharge Orders/Prescriptions Prescriptions: New acetaminophen 325 mg Tablet 650 mg PO Q6H PRN PRN (Reason: Pain 1-10 Or Fever>100.7) Qty: 0 0RF metoprolol tartrate 100 mg Tablet 100 mg PO BID Qty: 0 0RF Eliquis 5 mg Tablet 5 mg PO BID Qty: 0 0RF melatonin 3 mg Tablet 3 mg PO QHS PRN PRN (Reason: Insomnia) Qty: 0 0RF bisacodyl 10 mg Suppository 10 mg MI DAILY Qty: 0 0RF multivitamin [Daily Multi-Vitamin] Tablet 1 tab PO DAILY Qty: 30 0RF Continued aspirin [Adult Low Dose Aspirin] 81 mg tablet,delayed release (DR/EC) 81 mg PO DAILY umeclidinium-vilanterol [Anoro Ellipta] 1 inh inhalation DAILY albuterol sulfate [Ventolin HFA] .Route furosemide 40 mg tablet 40 mg PO DAILY Qty: 30 2RF albuterol sulfate 2.5 mg /3 mL (0.083 %) solution for nebulization 2.5 mg inhalation Q4H PRN (Reason: shortness of breath or wheezing) Patient Comments: inhale contents of 1 vial ( 3 milliliters ) in nebulizer by mouth... (REFER TO PRESCRIPTION NOTES). Discontinued aspirin 325 MG tablet,delayed release (DR/EC) 325 mg PO DAILY Hold Instructions: Ordered metoprolol tartrate 50 mg tablet 75 mg PO BID Patient Comments: take 1 AND 1/2 tablet by mouth twice a day lisinopril 20 mg tablet 20 mg PO DAILY Patient Comments: take 1 tablet by mouth once daily potassium 99 mg tablet 99 mg PO DAILY metoprolol tartrate 25 mg tablet 25 mg PO BID Qty: 30 2RF Referrals / Follow Up: [facility] [Provider Group] - Within 1 Month [facility] [Provider Group] - Within 1 Month Imtiaz Marie MD [Primary Care Provider] - Within 2 Weeks Disposition Disposition (needs filled in before D/C Order can be placed): [facility] Charges/Coding Visit Charges Inpatient E&M: 09978 Disch Hosp >30min
--- NOTE | 2023-03-26 13:42 | CHAPLAIN ---
Type of Pastoral Visit _x__ Initial Visit ___ Follow-up Visit ___ On-call Visit ___ General Patient Visit ___ Spiritual Assessment ___ Family Conference ___ Bereavement ___ Rapid Response ___ Code Blue ___ Other (describe below) Pastoral Care Referral From _x__ Patient ___ Family ___ Nurse ___ Physician ___ Mobile Patrol Officer ___ Machine Setter Sheet Metal ___ Other (describe below) Sacrament/Intervention ___ Active listening ___ Anointing ___ Sikh ___ Bereavement ___ Communion ___ Deborah exploration ___ ___ Life review _x__ Prayer ___ Reconciliation ___ Sacrament of Sick _x__ Supportive presence ___ Wedding ___ Other (describe below) Pastoral Comments at first attempt the patient urgently asked for help to poop; call button was utilized and LANDING SUPPORT SPECIALIST in hallway was present immediately; later returned to room and patient was quietly resting in bed; offer of presence and support given; pt stated that a prayer would be good; asked about how she is coping and what needs she had, the patient admitted to fear and not knowing what is happening in her body; otherwise pt only answered questions with minimal words, often looked out the window rather than at this gas station supervisor, and denied specific help; pt did admit that she needed help but could not identify what that meant except to say for whatever happens next and what i should do; offer of support included focusing on the positives and activities that she finds hopeful, personal prayer, and receiving help for other people; pt did not identify people but when asked about her support group she only said I hope they will come around; prayer and offer of future support given
--- NOTE | 2023-03-26 13:49 | CASEMGMT ---
Patient will be discharged to [facility] today. SW completed PASRR in [facility] system. Plan: d/c to [facility] under intermediate level of care on a PASRR. Karly BRIGGS
--- NOTE | 2023-03-26 14:00 | CASEMGMT ---
Discharge Planning Discharge orders, signed med list, and transport time sent to [facility] via [facility]. [facility] will transport patient by wheelchair at 4:30p. Nursing, SW, and patient updated. Melisa Coreas, Discharge Planning Asst.
--- NOTE | 2023-03-26 14:45 | PHA.DC.MR.R ---
Pharmacy [place] Med Reconciliation Pharmacy Service has performed discharge medication reconciliation for this patient. The patient's discharge medication list was reviewed for discrepancies and discrepancies were resolved. Medications at Discharge Home Medications albuterol sulfate .Route 03/17/23 aspirin 81 mg tablet,delayed release (Adult Low Dose Aspirin) 81 mg PO DAILY 03/17/23 umeclidinium-vilanterol 1 inh inhalation DAILY 03/17/23 furosemide 40 mg tablet 40 mg PO DAILY #30 tabs 03/19/23 albuterol sulfate 2.5 mg/3 mL (0.083 %) solution for nebulization 2.5 mg inhalation Q4H PRN shortness of breath or wheezing 03/22/23 acetaminophen 325 mg tablet 650 mg (2 x 325 mg) PO Q6H PRN PRN Pain 1-10 Or Fever>100.7 #0 tabs 03/26/23 apixaban 5 mg tablet (Eliquis) 5 mg PO BID #0 tabs 03/26/23 bisacodyl 10 mg rectal suppository 10 mg SD DAILY #0 ea 03/26/23 melatonin 3 mg tablet 3 mg PO QHS PRN PRN Insomnia #0 tabs 03/26/23 metoprolol tartrate 100 mg tablet 100 mg PO BID #0 tabs 03/26/23 multivitamin (Daily Multi-Vitamin tablet) 1 tab PO DAILY #30 tabs 03/26/23
--- NOTE | 2023-03-26 15:24 | NURSING ---
1524 Report called to nurse Lindy @ [facility]
== END 2023-03-26 18:10 | disposition skilled nursing facility (03) | DRG 422 ==
LOC: ED 21:41 → PCU 03-22
PROVIDERS: Internal Medicine; Admitting Provider Hospitalist; Emergency Provider Emergency Medicine; PCP Family Medicine; Referring Provider Emergency Medicine
DX: E86.1 Hypovolemia (principal); I24.89 Other forms of acute ischemic heart disease; Z68.43 Body mass index [BMI] 50.0-59.9, adult; G25.3 Myoclonus; I13.0 Hypertensive heart and chronic kidney disease with heart failure and stage 1 through stage 4 chronic kidney disease, or unspecified chronic kidney disease; N17.9 Acute kidney failure, unspecified; J96.11 Chronic respiratory failure with hypoxia; I50.32 Chronic diastolic (congestive) heart failure; F11.10 Opioid abuse, uncomplicated; I48.0 Paroxysmal atrial fibrillation; J44.9 Chronic obstructive pulmonary disease, unspecified; N18.31 Chronic kidney disease, stage 3a; E66.01 Morbid (severe) obesity due to excess calories; F17.210 Nicotine dependence, cigarettes, uncomplicated; F12.10 Cannabis abuse, uncomplicated; F41.0 Panic disorder [episodic paroxysmal anxiety]; R53.81 Other malaise; Z60.9 Problem related to social environment, unspecified; Z99.81 Dependence on supplemental oxygen; Z79.82 Long term (current) use of aspirin; Z79.899 Other long term (current) drug therapy
CPT/HCPCS: 36415; 71045; 80048; 80307; 81001; 82140; 82550; 82607; 82746; 83880; 84484; 85025; 85027; 87631; 93005; 94002; 94003; 94640; 94668; 94762; 97162; 97165; 97530; 97535; 99285; 99406; J7120; A4216

== ENCOUNTER 2023-04-14 08:08 | Emergency (ER) | payer MEDICAID, SELFPAY ==
[2023-04-14] VITALS (12 sets, daily range): BP systolic 118–135; BP diastolic 52–82; PULSE 76–87; RESP 6–21; TEMP 36.6; O2SAT 89–94; BMI 54.5
--- NOTE | 2023-04-14 08:20 | ED.RN ---
BLE EDEMA, LEGS RED AND SHINING.
--- NOTE | 2023-04-14 08:47 | ED.VIS.DYS ---
HPI History of Present Illness Chief Complaint: Shortness of Breath Informant: patient Narrative Narrative: Patient states she was excessively dyspneic this morning at the [facility] at which she is [facility] right now, hypoxic 70% on her home 5 L nasal cannula, and therefore sent here to the ER. She has intermittent chest discomfort that feels like heaviness/aching, which is relatively brief and typically occurs when she is dyspneic, although it is not present right now. She states she was hospitalized here maybe a month ago for similar reasons. She has had a persistent cough with occasional phlegm production containing blood, none of that has changed in the past month. She is chronically orthopneic and has dyspnea with exertion, she is in a penitentiary for short-term rehab, and states that her legs been very swollen ever since as well. She states they seem to go down a little bit initially in the past month but then started getting worse again and she has noticed in the past 2 to 3 days she is barely urinating which is a change. EMS gave her a duo nebulizer treatment after a couple albuterol as she had at the penitentiary, all of which helped a little, and EMS also gave her Solu-Medrol 125 mg IV. [facility] Medical History Acute and chronic respiratory failure with hypoxia Adrenal mass Anasarca Atrial fibrillation with rapid ventricular response (06/29/19) Congestive heart failure COPD (chronic obstructive pulmonary disease) Essential hypertension Heroin use disorder, moderate, in early remission Marijuana abuse Nicotine abuse Paroxysmal atrial fibrillation Paroxysmal supraventricular tachycardia Home Medications aspirin 81 mg tablet,delayed release (Adult Low Dose Aspirin) 81 mg PO DAILY HEART HEALTH 03/17/23 [History Last Taken Unknown] umeclidinium-vilanterol 1 inh inhalation DAILY SHORTNESS OF BREATH 03/17/23 [History Last Taken Unknown] albuterol sulfate 2.5 mg/3 mL (0.083 %) solution for nebulization 2.5 mg inhalation Q4H PRN shortness of breath or wheezing 03/22/23 [History Last Taken Unknown] apixaban 5 mg tablet (Eliquis) 5 mg PO BID BLOOD THINNER #0 tabs 03/26/23 [Rx Last Taken Unknown] metoprolol tartrate 100 mg tablet 100 mg PO BID BLOOD PRESSURE #0 tabs 03/26/23 [Rx Last Taken Unknown] multivitamin (Daily Multi-Vitamin tablet) 1 tab PO DAILY SUPPLEMENT #30 tabs 03/26/23 [Rx Last Taken Unknown] acetaminophen 325 mg tablet 650 mg PO Q6H PRN Pain 1-10 Or Fever>100.7 04/14/23 [History Last Taken Unknown] albuterol sulfate 90 mcg/actuation aerosol inhaler (Ventolin HFA) 1 inh inhalation DAILY SHORTNESS OF BREATH 04/14/23 [History Last Taken Unknown] bisacodyl 10 mg rectal suppository 10 mg KS QHS CONSTIPATION 04/14/23 [History Last Taken Unknown] furosemide 40 mg tablet 60 mg (1.5 x 40 mg) PO BID 5 days #90 tabs 04/14/23 [Rx Last Taken Unknown] melatonin 3 mg tablet 3 mg PO QHS PRN Insomnia 04/14/23 [History Last Taken Unknown] nystatin 100,000 unit/gram topical powder 1 applic topical DAILY SKIN IRRITATION 04/14/23 [History Last Taken Unknown] ondansetron HCl 4 mg tablet 4 mg PO Q8H PRN nausea 04/14/23 [History Last Taken Unknown] Allergy/AdvReac Type Severity Reaction Status Date / Time naproxen Allergy Shortness Verified 03/21/23 20:54 of breath Opioids - Morphine Analogues AdvReac Other Verified 03/21/23 20:54 Surgical History History of cardioversion (06/29/19) Social History Smoking Status: Current every day smoker tobacco type: cigarettes substance use type: opiates caffeine: Yes Type: coffee and other ROS ROS ED Constitutional Constitutional ED: Reports fatigue and weakness; Denies chills or fever(s) Eyes Eyes: Denies change in vision or diplopia ENT ENT ED: Denies rhinorrhea or sore throat Cardiovascular Cardiovascular: Reports chest pain, leg edema and orthopnea; Denies palpitations, pounding heartbeat, radiating jaw, neck or arm pain or syncope Respiratory/Chest Respiratory/Chest: Reports cough, dyspnea, dyspnea on exertion, hemoptysis, orthopnea and sputum Gastrointestinal Gastrointestinal: Denies abdominal pain, diarrhea, nausea or vomiting Genitourinary Genitourinary ED: Reports other Details: decreased UOP x 2-3 days ; Denies dysuria or hematuria Musculoskeletal Musculoskeletal: Denies back pain or neck pain Integumentary Denies abscess or rash Neurologic Neurologic: Denies headache(s), paresthesias or weakness Psychiatric Psychiatric: Denies suicidal ideation or suicidal thoughts EXAM Physical Exam Const Vital Signs: 04/14/23 08:10 04/14/23 08:17 04/14/23 08:18 Temperature 97.8 F Temperature Source Temporal Pulse Rate 78 Respiratory Rate 21 H Respiratory Effort Short of Breath Labored Respiratory Depth Shallow Blood Pressure 135/66 H Blood Pressure Mean 89 Pulse Ox 89 92 Oxygen Delivery Method Nasal Cannula Nasal Cannula Nasal Cannula Oxygen Flow Rate (L/min) 5 5 5 04/14/23 08:17 04/14/23 08:59 04/14/23 09:13 Temperature 97.8 F Temperature Source Temporal Pulse Rate 78 78 Respiratory Rate 18 18 Respiratory Effort Respiratory Depth Blood Pressure 135/66 H 133/57 H Blood Pressure Mean 89 82 Pulse Ox 92 89 91 Oxygen Delivery Method Nasal Cannula Nasal Cannula Nasal Cannula Oxygen Flow Rate (L/min) 5 5 5 04/14/23 09:17 04/14/23 09:33 04/14/23 10:30 Temperature 98 F Temperature Source Temporal Pulse Rate 79 82 79 Respiratory Rate 16 18 18 Respiratory Effort Respiratory Depth Blood Pressure 119/56 L 129/82 H Blood Pressure Mean 77 97 Pulse Ox 91 90 Oxygen Delivery Method Nasal Cannula Nasal Cannula Oxygen Flow Rate (L/min) 5 5 04/14/23 10:44 04/14/23 11:07 04/14/23 12:00 Temperature Temperature Source Pulse Rate 79 76 Respiratory Rate 16 6 L Respiratory Effort Respiratory Depth Blood Pressure 133/58 H 118/52 L Blood Pressure Mean 83 74 Pulse Ox 93 92 94 Oxygen Delivery Method Nasal Cannula Nasal Cannula Oxygen Flow Rate (L/min) 5 5 Positive well nourished, well developed and obese General Appearance ED: well developed and NAD Nutritional Appearance: obese HEENT Reports moist mucous membranes normocephalic and atraumatic Eyes PERRL and EOMs intact bilaterally Neck full ROM and supple Neck Narrative: No gross JVD seen but obesity limits the exam Resp normal respiratory effort Resp Narrative: Conversive in full sentences while sitting at rest. Bibasilar Rales and rhonchi otherwise clear. Cardio regular rate, regular rhythm and no murmurs GI non-tender and non-distended Auscultation: normoactive bowel sounds Palpation: soft Back/Spine no CVA tenderness General Back: other FROM Extremity normal to inspection General Extremety ED: Yes edema; Negative for pulses abnormal or tenderness General Extremity: edema bilateral lower extremity Details: moderate; Negative for pulses abnormal Neuro oriented x3, CN's II-XII intact bilaterally and no sensory deficits noted Sensorium / Orientation: awake and alert Motor Exam: general weakness Psych mental status grossly normal Skin no rashes or lesions noted and no wounds MDM MDM MDM Narrative Medical decision making narrative: Labs and 1 view chest x-ray reviewed, the lateral my interpretation appears to show venous congestion and CHF which the radiologist is in agreement with. I agree with his report. The rest of her workup is consistent with that as well, she does not appear to have MEGHAN/renal failure. She urinated prior to us giving her IV Lasix, which caused her to urinate more. She has a normal troponin. Her EKG shows no repolarization abnormality. She is nonambulatory at this time and in a penitentiary because of that, and she currently is satting 91% on her 5 L nasal cannula that she chronically wears. She is not in acute respiratory failure and looks good clinically, conversing in full sentences. Therefore at this time my plan is to measure urine output after the IV Lasix and to get a repeat 2-hour troponin measurement and if negative and still oxygenating well, she could potentially go back to the penitentiary with an increased dose of Lasix. Patient's second troponin came back less than the initial measurement, therefore delta is negative. She was given Lasix 40 mg IV and she did urinate some but it was less than 500 cc. I am going to increase her dose, AND change it to twice daily for the next 5 days. But since she just had an echocardiogram, I do not think she needs to be admitted for repeat since her troponins are normal and her EKG is as well, is satting 92-94% on her home 5L oxygen, and she is already in SNF. History & Record Review Additional record(s) reviewed:: Prior labs Lab Data Attestation: I reviewed the patient's lab results. Labs: Laboratory Results - last 24 hr 04/14/23 04/14/23 08:50 10:20 WBC 10.5 RBC 3.39 L Hgb 10.1 L Hct 33.7 L MCV 99.4 H MCH 29.8 MCHC 30.0 L RDW Std Deviation 49.4 H RDW Coeff of Fernando 13.5 Plt Count 156 MPV 11.6 Immature Gran % (Auto) 1.100 H Neut % (Auto) 80.8 H Lymph % (Auto) 10.0 L Mccracken % (Auto) 6.6 Eos % (Auto) 1.2 Baso % (Auto) 0.3 Absolute Neuts (auto) 8.5 H Absolute Lymphs (auto) 1.05 Nucleated RBC % 0 Sodium 141 Potassium 3.4 L Chloride 100 Carbon Dioxide 37.0 H Anion Gap 4 L BUN 14 Creatinine 1.05 H Estim Creat Clear Calc 101.35 Est GFR (MDRD) Af Amer 71 Est GFR (MDRD) Non-Af 59 L BUN/Creatinine Ratio 13.3 Glucose 118 H Calcium 9.2 Troponin I High Sens 12 10 B-Natriuretic Peptide 253.4 H Radiography Diagnostic Testing: Clinical Impression(s) from Imaging Studies Chest X-Ray 04/14/23 09:00 IMPRESSION: Pulmonary venous congestion and mild interstitial edema. Electronically Signed: Guanaco Nicholson MD at 9:18 EST , Rhythm Strip Rhythm Strip: Sinus Rhythm Rate: 77 Ectopy: None EKG Initial EKG: Attestation: I personally reviewed and interpreted this EKG as follows: Interpretation: Sinus Rhythm and No Acute Injury Pattern Comments: Normal EKG without injury Prior EKG tracings: available for review Prior: Unchanged Discharge Plan Triage Chief Complaint: Shortness of Breath ED Provider: Serge Farah Dx/Rx/DC Orders Clinical Impression: Acute exacerbation of CHF (congestive heart failure) Instructions: ED Heart Failure, Congestive (CHF) Prescriptions: New furosemide 40 mg tablet 60 mg PO BID 5 Days Qty: 90 0RF Rx Instructions: then, go to 60 mg once daily Continued aspirin [Adult Low Dose Aspirin] 81 mg tablet,delayed release (DR/EC) 81 mg PO DAILY umeclidinium-vilanterol [Anoro Ellipta] 1 inh inhalation DAILY albuterol sulfate 2.5 mg /3 mL (0.083 %) solution for nebulization 2.5 mg inhalation Q4H PRN (Reason: shortness of breath or wheezing) Patient Comments: inhale contents of 1 vial ( 3 milliliters ) in nebulizer by mouth... (REFER TO PRESCRIPTION NOTES). metoprolol tartrate 100 mg Tablet 100 mg PO BID Qty: 0 0RF Eliquis 5 mg Tablet 5 mg PO BID Qty: 0 0RF multivitamin [Daily Multi-Vitamin] Tablet 1 tab PO DAILY Qty: 30 0RF albuterol sulfate [Ventolin HFA] 90 mcg/actuation HFA aerosol inhaler 1 inh inhalation DAILY acetaminophen 325 mg Tablet 650 mg PO Q6H PRN (Reason: Pain 1-10 Or Fever>100.7) nystatin 100,000 unit/gram powder 1 applic TOPICAL DAILY Rx Instructions: APPLY TO BREASTS/ABDOMINAL FOLDS TOPICALLY EVERY DAY. ondansetron HCl 4 mg tablet 4 mg PO Q8H PRN (Reason: nausea) melatonin 3 mg Tablet 3 mg PO QHS PRN (Reason: Insomnia) bisacodyl 10 mg Suppository 10 mg KS QHS Discontinued furosemide 40 mg tablet 40 mg PO DAILY Qty: 30 2RF Primary Care Provider: Imtiaz Marie Referrals: Imtiaz Marie MD [Primary Care Provider] - 3-5 Days (or SNF doctor if different, for reeval) Disposition Disposition: Residential Facility
--- NOTE | 2023-04-14 09:00 | RAD_ITS ---
INDICATION: Shortness of breath EXAMINATION/TECHNIQUE: X-RAY - XR Chest 1 View COMPARISON: Prior study dated: 03/21/2023 FINDINGS: LINES/DEVICES: None. LUNGS: Prominence of the pulmonary vasculature. Prominent interstitial markings in the lower lungs. No evidence of pleural effusions. MEDIASTINUM AND CARDIOVASCULAR STRUCTURES: Cardiac silhouette not enlarged. Central airways and mediastinal contour are unremarkable. BONES AND SOFT TISSUES: Unremarkable. RAD/Chest 1 View (Portable) IMPRESSION: Pulmonary venous congestion and mild interstitial edema. Electronically Signed: Guanaco Nicholson MD at 9:18 EST ,
[2023-04-14 09:03] LABS: Absolute Lymphocyte Count 1.05 X10^3/uL (0.83-4.51); Absolute Neutrophil Count 8.5 X10^3/uL (2.0-7.7); Basophil# 0.03 X10^3/uL; Basophil% 0.3 % (0-1); Eosinophil# 0.13 X10^3/uL; Eosinophils% 1.2 % (0-5); Hematocrit 33.7 % (37-47); Hemoglobin 10.1 g/dL (12.0-15.0); Lymphocyte # 1.05 X10^3/ul (0.83-4.51); Mean Corpuscular Hgb 29.8 pg (27.0-32.0); Mean Corpuscular Volume 99.4 fL (81-99); Mean Platelet Vol. 11.6 fl (6.2-12.0); Monocyte# 0.69 X10^3/uL; Monocyte% 6.6 % (0-10); NRBC Flagged by Analyzer 0 % (0-5); Neutrophil # 8.48 X10^3/uL (2.7-7.7); Neutrophil % 80.8 % (47-70); Platelet Count 156 K/mm3 (150-450); RBC Distribution Width CV 13.5 % (11.6-14.6); RBC Distribution Width SD 49.4 fl (35.1-43.9); Red Blood Count 3.39 M/mm3 (4.2-5.4); White Blood Count 10.5 K/mm3 (4.4-11.0)
[2023-04-14] MEDS: Albuterol 2.5 MG/3 ML VIAL.NEB. INHALATION (09:32)
[2023-04-14 09:51] LABS: Anion Gap 4 (5-15); BNP,B-Type NATRIURETIC PEPTIDE 253.4 pg/mL (0-100); BUN 14 mg/dL (7-18); BUN/Creat Ratio 13.3 RATIO (10-20); Calcium,Total 9.2 mg/dL (8.5-10.1); Chloride 100 mmol/L (98-107); Creatinine, Serum 1.05 mg/dL (0.55-1.02); EST Glomerular Filtration Rate 59 mL/min (>60); Est Glom Filt Rate - Afr Amer 71 mL/min (>60); Estimated Creatinine Clearance 101.35 ml/min; Glucose 118 mg/dL (74-106); Potassium 3.4 mmol/L (3.5-5.1); Sodium Level 141 mmol/L (136-145); Troponin-I HS 12 pg/mL (3.0-54.0)
--- NOTE | 2023-04-14 10:03 | ED.RN ---
OK PER PT TO TALK TO SISTER HALINA, [phone].
[2023-04-14] MEDS: Furosemide 40 MG/4 ML Vial IV (10:08)
[2023-04-14 10:43] LABS: Troponin-I HS 10 pg/mL (3.0-54.0)
--- NOTE | 2023-04-14 10:46 | ED.RN ---
PER PT REQUEST THIS RN ATTEMPTED TO CONTACT [facility], WE DO NOT HAVE THE CORRECT NUMBER.
--- NOTE | 2023-04-14 15:07 | ED.RN ---
report called to FREDY Telles at [facility]
== END 2023-04-14 15:08 ==
PROVIDERS: Emergency Provider Emergency Medicine; PCP Family Medicine; Visit Provider Emergency Medicine
DX: I11.0 Hypertensive heart disease with heart failure (principal); J44.9 Chronic obstructive pulmonary disease, unspecified; I50.9 Heart failure, unspecified; I48.0 Paroxysmal atrial fibrillation; F17.210 Nicotine dependence, cigarettes, uncomplicated; E66.9 Obesity, unspecified; Z79.82 Long term (current) use of aspirin; Z79.899 Other long term (current) drug therapy
CPT/HCPCS: 71045; 80048; 83880; 84484; 85025; 93005; 94640; 96374; 99284; A4216; J1940